=== PATIENT | female | born 1970 | race American Indian/Alaskan Native ===

== ENCOUNTER 2016-07-03 03:50 | Inpatient (IN) | payer OTHER ==
[2016-07-03] MEDS ORDERED: NACL 0.9% 500 ML 500 ML IV ONE (04:24)
[2016-07-03] MEDS ORDERED: TYLENOL PO STA (04:24)
[2016-07-03] MEDS ORDERED: NACL 0.9% 1000 ML 2,000 ML ONE (04:55)
[2016-07-03 05:30] LABS: Hematocrit 33.5 % (30.3-42.9); Hemoglobin 11.2 gm/dl (10.1-14.3); Mean Corpuscular HGB Conc 34 % (30-34); Mean Corpuscular Hemoglobin 32 pg (28-32); Mean Corpuscular Volume 96 fl (79-97); Red Blood Count 3.48 M/mm3 (3.65-5.03); Red Cell Distribution Width 15.1 % (13.2-15.2); White Blood Count 7.5 K/mm3 (4.5-11.0)
[2016-07-03 05:36] LABS: Bacteria,Urine 1+ /HPF (Negative); Bilirubin,Urine NEG (Negative); Blood,Urine MOD (Negative); Ketones,Urine 20 mg/dL (Negative); Leukocyte Esterase,Urine NEG (Negative); Mucus,Urine 1+ /HPF; Nitrite,Urine NEG (Negative); Urobilinogen,Urine < 2.0 mg/dL (<2.0)
[2016-07-03 05:36] LABS: Albumin 4.2 g/dL (3.9-5); Bilirubin,Total 2.2 mg/dL (0.1-1.2); Calcium 6.6 mg/dL (8.4-10.2); Chloride 87.5 mmol/L (98-107); Potassium 3.3 mmol/L (3.6-5.0); Total Protein 8.5 g/dL (6.3-8.2)
[2016-07-03 05:37] LABS: Platelet Count 91 K/mm3 (140-440)
[2016-07-03 05:38] LABS: Protein,Urine >500 mg/dL (Negative)
[2016-07-03] MEDS ORDERED: NACL 0.9% 1000 ML 2,000 ML IV ONE (05:39)
[2016-07-03 05:41] LABS: INR 1.1 (0.87-1.13)
[2016-07-03 06:15] LABS: Basophils % (Manual) 0 % (0.0-1.8); Blastocytes % (Manual) 0 %; Eosinophils % (Manual) 0 % (0.0-4.3)
[2016-07-03 06:16] LABS: Diff Status Complete; Platelet Estimate Appears Decreased; RBC Morphology Normal
[2016-07-03] MEDS ORDERED: HALDOL IV ONE (06:17)
--- NOTE | 2016-07-03 06:23 | Emergency Department Report ---
ED General Adult HPI - General Chief complaint: Fever Stated complaint: ETOH Time Seen by Provider: 07/03/16 06:05 Source: patient, EMS Mode of arrival: Stretcher Limitations: Altered Mental Status - History of Present Illness Initial comments: 45-year-old female presents to the emergency department via EMS after being found lying on the ground by the fire department. Per report, the initial call was for an injured person or a possible seizure. EMS reports that the patient was initially angry and combative with them. On my interviewing the patient, the patient is very loud and yelling. She states she does not know why she is here and has no complaints. Reviewing the nursing notes shows that the patient reported a recent cough and being very cold. She denied having a seizure. She also denies any fever. -: unknown Improves with: none Worsens with: none Associated Symptoms: denies other symptoms Treatments Prior to Arrival: none - Related Data Home Medications Medication Instructions Recorded Confirmed Last Taken No Known Home Medications [No 07/03/16 07/03/16 Unknown Reported Home Medications] Allergies Allergy/AdvReac Type Severity Reaction Status Date / Time No Known Allergies Allergy Unverified 07/03/16 04:14 ED Review of Systems ROS: Stated complaint: ETOH Other details as noted in HPI Comment: Unobtainable due to pts medical conditions ED Past Medical Hx - Past Medical History Previous Medical History?: Yes Hx Hypertension: Yes Hx Diabetes: Yes - Surgical History Past Surgical History?: No - Family History Family history: no significant - Social History Smoking Status: Unknown if ever smoked - Medications Home Medications: Home Medications Medication Instructions Recorded Confirmed Last Taken Type No Known Home Medications [No 07/03/16 07/03/16 Unknown History Reported Home Medications] ED Physical Exam - General Limitations: Altered Mental Status General appearance: alert, in no apparent distress - Head Head exam: Present: atraumatic, normocephalic - Eye Eye exam: Present: normal appearance, PERRL, EOMI - ENT ENT exam: Present: normal orophraynx, mucous membranes moist, other (dried blood noted on lips) - Neck Neck exam: Present: normal inspection, full ROM. Absent: tenderness, meningismus - Respiratory Respiratory exam: Present: normal lung sounds bilaterally. Absent: respiratory distress - Cardiovascular Cardiovascular Exam: Present: regular rate, tachycardia, normal heart sounds - GI/Abdominal GI/Abdominal exam: Present: soft, normal bowel sounds. Absent: distended, tenderness - Extremities Exam Extremities exam: Present: normal inspection, full ROM. Absent: tenderness - Back Exam Back exam: Present: normal inspection, full ROM. Absent: tenderness - Neurological Exam Neurological exam: Present: alert, altered. Absent: motor sensory deficit - Psychiatric Psychiatric exam: Present: agitated - Skin Skin exam: Present: warm, dry, intact ED Course Vital Signs 07/03/16 07/03/16 07/03/16 03:56 04:00 04:10 Temperature Pulse Rate 132 H 133 H Respiratory 22 24 Rate Blood Pressure 154/130 166/102 Blood Pressure [Left] O2 Sat by Pulse 82 L 96 100 Oximetry 07/03/16 07/03/16 07/03/16 04:14 04:20 04:30 Temperature 102.3 F H Pulse Rate 142 H 156 H 148 H Respiratory 26 H 30 H 27 H Rate Blood Pressure 166/102 166/102 177/127 Blood Pressure [Left] O2 Sat by Pulse 99 98 98 Oximetry 07/03/16 07/03/16 07/03/16 04:40 04:50 05:00 Temperature Pulse Rate 162 H 191 H 153 H Respiratory 27 H 29 H 30 H Rate Blood Pressure 177/127 177/127 195/126 Blood Pressure [Left] O2 Sat by Pulse 98 98 100 Oximetry 07/03/16 07/03/16 07/03/16 05:10 05:20 05:30 Temperature Pulse Rate 129 H 110 H 141 H Respiratory 23 21 13 Rate Blood Pressure 177/127 177/127 213/158 Blood Pressure [Left] O2 Sat by Pulse 99 99 100 Oximetry 07/03/16 07/03/16 07/03/16 05:40 05:50 06:16 Temperature Pulse Rate 186 H 137 H 131 H Respiratory 34 H 18 Rate Blood Pressure 213/158 213/124 193/110 Blood Pressure [Left] O2 Sat by Pulse 98 100 Oximetry 07/03/16 07/03/16 07/03/16 06:20 06:24 06:30 Temperature Pulse Rate 131 H 142 H Respiratory 25 H 18 18 Rate Blood Pressure 98/75 Blood Pressure 158/101 [Left] O2 Sat by Pulse 97 97 98 Oximetry 07/03/16 07/03/16 07/03/16 06:40 06:50 07:00 Temperature Pulse Rate 176 H 163 H 146 H Respiratory 33 H 28 H 21 Rate Blood Pressure 158/103 158/103 164/121 Blood Pressure [Left] O2 Sat by Pulse 97 99 97 Oximetry 07/03/16 07/03/16 07/03/16 07:10 07:20 07:34 Temperature Pulse Rate 140 H 163 H 115 H Respiratory 23 32 H 22 Rate Blood Pressure 164/121 164/121 164/121 Blood Pressure [Left] O2 Sat by Pulse 98 100 94 Oximetry 07/03/16 07/03/16 07/03/16 07:40 07:50 07:57 Temperature Pulse Rate 113 H 110 H 184 H Respiratory 28 H 20 16 Rate Blood Pressure 164/121 164/121 Blood Pressure 177/129 [Left] O2 Sat by Pulse 95 95 100 Oximetry 07/03/16 07/03/16 07/03/16 08:00 08:16 08:19 Temperature 102.3 F H Pulse Rate 187 H 149 H Respiratory 21 22 17 Rate Blood Pressure Blood Pressure 234/162 207/137 [Left] O2 Sat by Pulse 95 94 100 Oximetry 07/03/16 07/03/16 07/03/16 08:20 08:30 08:45 Temperature Pulse Rate 147 H 139 H Respiratory 18 18 16 Rate Blood Pressure Blood Pressure 193/127 167/119 [Left] O2 Sat by Pulse 96 98 99 Oximetry 07/03/16 07/03/16 07/03/16 08:46 08:56 09:00 Temperature Pulse Rate 138 H 136 H 118 H Respiratory 16 16 20 Rate Blood Pressure 167/119 Blood Pressure 214/132 [Left] O2 Sat by Pulse 100 100 100 Oximetry 07/03/16 07/03/16 09:40 09:50 Temperature Pulse Rate 114 H 110 H Respiratory 17 16 Rate Blood Pressure 167/119 161/111 Blood Pressure [Left] O2 Sat by Pulse 100 100 Oximetry - Reevaluation(s) Reevaluation #1: 07/03/16 08:11 Patient suffered a witnessed seizure while phlebotomy was attempting a blood draw. Tonic-clonic activity was noted in all 4 extremities. Patient is unresponsive following this. Patient is noted to have a heart rate of possible 200 and remains hypotensive. Decision was made to intubate the patient. See associated procedure note. Patient remained tachycardia following intubation. 6 g of adenosine was administered followed by an additional 12 mg of adenosine. This had no effect on the patient's heart rate. Current heart monitor shows a regular supraventricular tachycardia with a rate between 160 and 180. Reevaluation #2: 07/03/16 10:[address], the patient's heart rate has improved in to the 110s. Her blood pressure is also improved, although she remains hypertensive. Patient is to be admitted by the hospitalist for further management. - Intubation Time Out Performed: Yes Sedative: Etomidate Mg Given: 20 Paralytic: Rocuronium Mg Given: 100 Laryngoscope: Daria Size: 3 ET Tube Size: 7.5 Tube Secured Depth (cm): 24 Tube Secured Location: lips Tube Placement Confirmation: visualized tube passing t, equal breath sounds bilat, no breath sounds over epi, confirmation by capnometr Patient Tolerated Procedure: well Intubation Complications: none ED Medical Decision Making - Lab Data Result diagrams: 07/03/16 04:42 07/03/16 04:42 - EKG Data -: EKG Interpreted by Me EKG shows normal: sinus rhythm, axis, intervals, QRS complexes Rate: tachycardia - EKG Data When compared to previous EKG there are: previous EKG unavailable Interpretation: nonspecific ST-T wave son - Radiology Data Radiology results: image reviewed interpreted by me: Chest x-ray shows no acute cardiopulmonary abnormality. CT of the head, facial bones, and cervical spine show no acute abnormalities. - Differential Diagnosis sepsis, drug ingestion, delirium, thyroid storm Critical Care Time: Yes Critical care time in (mins) excluding proc time.: 45 Critical care attestation.: If time is entered above; I have spent that time in minutes in the direct care of this critically ill patient, excluding procedure time. Critical Care Time: The high probability of a clinically significant, sudden or life threatening deterioration of the neurologic and cardiovascular system(s) required my full and direct attention, intervention and personal management. The aggregate critical care time was 45 minutes. This time is in addition to time spent performing reported procedures but includes the following: [x] Data Review and interpretation [x] Patient assessment and monitoring of vital signs [x] Documentation [x] Medication orders and management ED Disposition Clinical Impression: Fever Qualifiers: Fever type: unspecified Qualified Code(s): R50.9 - Fever, unspecified Altered mental status Qualifiers: Altered mental status type: delirium Qualified Code(s): R41.0 - Disorientation , unspecified Disposition: OP ADMITTED IP TO THIS HOSP Is pt being admited?: Yes Condition: Serious Referrals: PRIMARY CARE, [Primary Care Provider] - 3-5 Days Time of Disposition: 10:14
--- NOTE | 2016-07-03 06:49 | Admit Criteria Form ---
Admission Criteria Documentation: FEVER Clinical Indications for Inpatient Care (Place 'X' for any and all applicable criteria): Ongoing inpatient care may be indicated for fever with ANY ONE of the following[ D] (5)(27)(28)(29)(30)(31): [ ]I. Bacteremia [X ]II. Evidence of significant systemic illness as indicated by ANY ONE of the following: [ ]a) Persistently high temperatures greater than 103.1 degrees F ( 39.5 degrees C) (oral) [ ]b) New-onset hypoxia [ ]c) Hemodynamic instability [X ]d) Mental status changes [ ]e) Decreased urine output due to developing renal insufficiency [ ]f) New focal neurologic deficit (eg, stroke) [ ]g) Seizures [ ]h) Rigors [ ]i) Dehydration or hypovolemia [ ]j) Inadequate oral intake [ ]III. Patient in the immediate postoperative period with ANY ONE of the following (E)(23)(24): [ ]a) Evidence of specific localizing infection requiring ongoing inpatient evaluation or treatment (eg,abscess, severe pneumonia, wound infection ) [ ]b) Known or suspected cause of fever requiring ongoing inpatient evaluation or treatment (eg, DVT) [ ]c) Evidence of malignant hyperthermia (eg, unexplained tachycardia and muscle rigidity after depolarizing muscular blocking agent or inhaled anesthetic agent) [ ]IV. Suspected cause requiring acute care (eg, endocarditis, meningitis) [ ]V. High suspicion of bacteremia as indicated by severe constitutional symptoms in patient at high risk as indicated by ANY ONE of the following: [ ]a) Immunocompromised state [D](22) [ ]b) Age <3 years or >65 years [ ]c) Severe comorbidities (eg, poorly controlled diabetes, severe COPD) [ ]. High suspicion for fungal infection as indicated by ANY ONE of the following (22)(25): [ ]a) Febrile neutropenia (WBC <500/mm3 (0.5 X 109/L)) for >4 days despite broad spectrum antibiotics [ ]b) Imaging findings suggestive of fungal infection [ ]c) Immunocompromised state [ ]d) Immunocompromised patient colonized with Aspergillus species [ ]VII. Evidence of infection of medical devices such as implanted catheters or exposed hardware [ ]VIII. Suspected neuroleptic malignant syndrome as evidenced by ALL of the following (15): [ ]a) Recent use of neuroleptic medication (eg, haloperidol, prochlorperazine, metoclopramide) [ ]b) New-onset muscle rigidity Extended stay beyond goal length of stay for primary condition may be needed until ALL of the following are present(16)(17)(18)(19)(20)(21): [ ]a) Temperature status acceptable as indicated by ANY ONE of the following: [ ]i) Temp <38.1C (100.5 F) (oral) [ ]ii) Temp as expected for disease process and care performable at next level of care [ ]b) Hemodynamic stability [ ]c) Cultures negative or infection identified and under adequate treatment [ ]d) Behavior or mental status abnormalities absent or manageable at lower level of care (Also use Mental Status Change Criteria Form) for further information. [ ]e) Medical comorbidities absent or manageable at a lower level of care The original [facility] content created by [facility] has been revised. The portions of the content which have been revised are identified through the use of italic text or in bold, and [facility] has neither reviewed nor approved the modified material. All other unmodified content is copyright [facility]. Please see references footnoted in the original [facility] edition 2016 Admission Criteria Met: Yes
[2016-07-03] MEDS ORDERED: BENADRYL IV ONE (07:15)
--- NOTE | 2016-07-03 07:33 | XRay Report ---
AP CHEST: HISTORY: Sepsis, fever AP view of the chest demonstrates a normal mediastinal and cardiac contour with clear lungs and normal bony and soft tissue structures. IMPRESSION: Unremarkable AP chest.
[2016-07-03] MEDS ORDERED: DIPRIVAN 10 MG/ML 1,000 MG/100 ML BOTTLE IV ONE (07:42)
[2016-07-03] MEDS ORDERED: fentaNYL DRIP Premix 2,000 MCG/100 ML BAG IV ONE (07:43)
[2016-07-03] MEDS ORDERED: NACL 0.9% 1000 ML 1,000 ML IV ONE (07:55)
[2016-07-03] MEDS ORDERED: ARTIFICIAL TEARS OPHTH OINT OU PRN (08:09)
[2016-07-03] MEDS ORDERED: ZEMURON IV ONE ×2 (08:09→12:36)
[2016-07-03] MEDS ORDERED: VASELINE LIP THERAPY TP PRN (08:09)
[2016-07-03] MEDS ORDERED: AMIDATE IV ONE ×2 (08:09→12:36)
[2016-07-03 08:18] LABS: Urine Drugs of Abuse Note Disclamer
[2016-07-03] MEDS: DIPRIVAN 10 MG/ML 1,000 MG/100 ML BOTTLE IV SCH ×2 (08:27→21:09)
[2016-07-03] MEDS: fentaNYL DRIP Premix 2,000 MCG/100 ML BAG IV SCH ×2 (08:56→21:15)
[2016-07-03] MEDS ORDERED: NACL 0.9% 500 ML IV SCH (09:00)
--- NOTE | 2016-07-03 10:18 | XRay Report ---
AP CHEST: HISTORY: Endotracheal tube placement An endotracheal tube has been inserted which terminates 3 cm superior to the hollis. AP view of the chest demonstrates a normal mediastinal and cardiac contour with clear lungs and normal bony and soft tissue structures. IMPRESSION: Unremarkable AP chest. Adequate endotracheal tube placement.
--- NOTE | 2016-07-03 10:20 | Cat Scan Report ---
CT HEAD WITHOUT CONTRAST: HISTORY: Head injury. Advanced cerebellar volume loss is identified. Mild cortical volume loss for this patient's age in the supratentorial compartment. There is no evidence for hemorrhage, mass, extra-axial fluid collection or hydrocephalus. No chronic infarct. The calvarium is intact. The visualized sinuses and mastoid air cells are adequately aerated. IMPRESSION: No acute intracranial process. Advanced volume loss for this patient's age, particularly in the cerebellum.
--- NOTE | 2016-07-03 10:22 | Cat Scan Report ---
CT SCAN OF THE CERVICAL SPINE: HISTORY: Neck injury, head injury, pain. TECHNIQUE: Contiguous 1.25 mm axial images of the cervical spine were obtained. Sagittal and coronal reformatted images. FINDINGS: There is normal alignment of the cervical spine. The body, pedicles and posterior ligaments are intact. No evidence of fracture or subluxation is seen. Moderate degenerative disc disease with circumferential spurring is identified at C5-6. The remaining levels demonstrate minimal degenerative findings. The spinal canal appears normal. The prevertebral soft tissues appear normal. IMPRESSION: Cervical spondylosis most pronounced at C5-6. No acute process is noted.
--- NOTE | 2016-07-03 10:25 | Cat Scan Report ---
CT FACIAL BONES WITHOUT CONTRAST: HISTORY: Head injury. TECHNIQUE: Helical CT images with sagittal and coronal CT reformations. FINDINGS: An endotracheal tube is in place. There is a small amount of fluid in the left maxillary sinus and lower ethmoid air cells which probably represents blood. No sinus wall fracture or orbital fracture is identified. Mandible and zygomas are intact. Visualized skull base is intact. There are subtle bilateral nasal bone deformities of uncertain age. At least 2 periapical tooth abscesses are identified involving left maxillary teeth. Please correlate with the images. IMPRESSION: Bilateral nasal bone deformities which may be chronic. No additional facial bone abnormality. Small amount of blood or fluid in the sinuses. Poor dentition.
[2016-07-03 10:46] LABS: ISTAT Base Excess 0; ISTAT HCO3 23.3; ISTAT PCO2 29.3 (35-45); ISTAT PH 7.508 (7.35-7.45); ISTAT PO2 169 (80-105); ISTAT SO2 100; ISTAT TCO2 24
--- NOTE | 2016-07-03 11:15 | History and Physical Report ---
History of Present Illness Date of examination: 07/03/16 Date of admission: 07/03/16 Chief complaint: 45-year-old female presents to the emergency department via EMS after being found lying on the ground by the fire department. Per report, the initial call was for an injured person or a possible seizure. EMS reports that the patient was initially angry and combative with them. History of present illness: 45-year-old female presents to the emergency department via EMS after being found lying on the ground by the fire department. Per report, the initial call was for an injured person or a possible seizure. EMS reports that the patient was initially angry and combative with them. Patient is currently intubated and sedated. All the history was obtained from the ER physician and ER record. ER physician reported that the patient was "very loud and yelling and did not know why she was here and had no complaints." Reviewing the nursing notes shows that the patient reported a recent cough and being very cold. According to the ER record, she denied having a seizure and denied any fever. While in the emergency department, patient was noted to have a seizure times one witnessed by the staff. Patient also had an episode of SVT with a heart rate in the range of 160-220 and received adenosine with resolution. Past History Past Medical History: other (unable to obtain due to ventilator and mental status) Past Surgical History: Other (unable to obtain due to mental status and ventilator) Social history: other (unable to obtain due to mental status and ventilator) Medications and Allergies Allergies Allergy/AdvReac Type Severity Reaction Status Date / Time No Known Allergies Allergy Unverified 07/03/16 04:14 Home Medications Medication Instructions Recorded Confirmed Last Taken Type No Known Home Medications [No 07/03/16 07/03/16 Unknown History Reported Home Medications] Active Meds: Active Medications Hydrophilic Ointment (Vaseline Lip Therapy) 1 applic TP Q2HR PRN PRN Reason: Dry Lips Fentanyl Citrate (Fentanyl Drip Premix) 2,000 mcg in 100 mls @ 3.062 mls/hr IV TITR VENKATA; 1 MCG/KG/HR PRN Reason: Protocol Last Admin: 07/03/16 08:56 Dose: 1 mcg/kg/hr, 3.062 mls/hr Propofol (Diprivan 10 Mg/Ml) 1,000 mg in 100 mls @ 1.837 mls/hr IV TITR VENKATA; 5 MCG/KG/MIN PRN Reason: Protocol Last Admin: 07/03/16 08:27 Dose: 5 mcg/kg/min, 1.837 mls/hr Multi-Ingred Cream/Lotion/Oil/Oint (Artificial Tears Ophth Oint) 1 applic OU Q4HR PRN PRN Reason: Dry Eye(s) Sodium Chloride (Nacl 0.9% 500 Ml) 1 ml IV DIRECT VENKATA Review of Systems ROS unobtainable: due to endotracheal tube, due to mental status Exam - Constitutional Vitals: Temp Pulse Resp BP Pulse Ox 102.3 F H 121 H 16 159/113 100 07/03/16 08:00 07/03/16 10:30 07/03/16 10:30 07/03/16 10:30 07/03/16 10:30 General appearance: Present: no acute distress, well-nourished, other (orally intubated) - EENT Eyes: Present: PERRL ENT: hearing intact, clear oral mucosa - Neck Neck: Present: supple, normal ROM - Respiratory Respiratory effort: normal Respiratory: bilateral: diminished, rhonchi - Cardiovascular Heart Sounds: Present: S1 & S2. Absent: rub, click - Extremities Extremities: pulses symmetrical, No edema Peripheral Pulses: within normal limits - Abdominal General gastrointestinal: Present: soft, non-tender, non-distended, normal bowel sounds Female genitourinary: Present: normal - Integumentary Integumentary: Present: clear, warm, dry - Musculoskeletal Musculoskeletal: gait normal, strength equal bilaterally - Psychiatric Psychiatric: appropriate mood/affect, intact judgment & insight - Neurologic Neurologic: CNII-XII intact, moves all extremities Results - Labs CBC & Chem 7: 07/03/16 04:42 07/03/16 04:42 Labs: Laboratory Last Values WBC 7.5 K/mm3 (4.5-11.0) 07/03/16 04:42 RBC 3.48 M/mm3 (3.65-5.03) L 07/03/16 04:42 Hgb 11.2 gm/dl (10.1-14.3) 07/03/16 04:42 Hct 33.5 % (30.3-42.9) 07/03/16 04:42 MCV 96 fl (79-97) 07/03/16 04:42 MCH 32 pg (28-32) 07/03/16 04:42 MCHC 34 % (30-34) 07/03/16 04:42 RDW 15.1 % (13.2-15.2) 07/03/16 04:42 Plt Count 91 K/mm3 (140-440) L 07/03/16 04:42 Add Manual Diff Complete 07/03/16 04:42 Total Counted 100 07/03/16 04:42 Seg Neutrophils % Guest Relations Representative 07/03/16 04:42 Seg Neuts % (Manual) 94.0 % (40.0-70.0) H 07/03/16 04:42 Band Neutrophils % 0 % 07/03/16 04:42 Lymphocytes % (Manual) 4.0 % (13.4-35.0) L 07/03/16 04:42 Reactive Lymphs % (Man) 0 % 07/03/16 04:42 Monocytes % (Manual) 2.0 % (0.0-7.3) 07/03/16 04:42 Eosinophils % (Manual) 0 % (0.0-4.3) 07/03/16 04:42 Basophils % (Manual) 0 % (0.0-1.8) 07/03/16 04:42 Metamyelocytes % 0 % 07/03/16 04:42 Myelocytes % 0 % 07/03/16 04:42 Promyelocytes % 0 % 07/03/16 04:42 Blast Cells % 0 % 07/03/16 04:42 Nucleated RBC % Not Reportable 07/03/16 04:42 Seg Neutrophils # Man 7.1 K/mm3 (1.8-7.7) 07/03/16 04:42 Band Neutrophils # 0.0 K/mm3 07/03/16 04:42 Lymphocytes # (Manual) 0.3 K/mm3 (1.2-5.4) L 07/03/16 04:42 Abs React Lymphs (Man) 0.0 K/mm3 07/03/16 04:42 Monocytes # (Manual) 0.2 K/mm3 (0.0-0.8) 07/03/16 04:42 Eosinophils # (Manual) 0.0 K/mm3 (0.0-0.4) 07/03/16 04:42 Basophils # (Manual) 0.0 K/mm3 (0.0-0.1) 07/03/16 04:42 Metamyelocytes # 0.0 K/mm3 07/03/16 04:42 Myelocytes # 0.0 K/mm3 07/03/16 04:42 Promyelocytes # 0.0 K/mm3 07/03/16 04:42 Blast Cells # 0.0 K/mm3 07/03/16 04:42 WBC Morphology Not Reportable 07/03/16 04:42 Hypersegmented Neuts Not Reportable 07/03/16 04:42 Hyposegmented Neuts Not Reportable 07/03/16 04:42 Hypogranular Neuts Not Reportable 07/03/16 04:42 Smudge Cells Not Reportable 07/03/16 04:42 Toxic Granulation Not Reportable 07/03/16 04:42 Toxic Vacuolation Not Reportable 07/03/16 04:42 Dohle Bodies Not Reportable 07/03/16 04:42 Pelger-Huet Anomaly Not Reportable 07/03/16 04:42 Paul Rods Not Reportable 07/03/16 04:42 Platelet Estimate Appears decreased 07/03/16 04:42 Clumped Platelets Not Reportable 07/03/16 04:42 Plt Clumps, EDTA Not Reportable 07/03/16 04:42 Large Platelets Not Reportable 07/03/16 04:42 Giant Platelets Not Reportable 07/03/16 04:42 Platelet Satelliting Not Reportable 07/03/16 04:42 Plt Morphology Comment Not Reportable 07/03/16 04:42 RBC Morphology Normal 07/03/16 04:42 Dimorphic RBCs Not Reportable 07/03/16 04:42 Polychromasia Not Reportable 07/03/16 04:42 Hypochromasia Not Reportable 07/03/16 04:42 Poikilocytosis Not Reportable 07/03/16 04:42 Anisocytosis Not Reportable 07/03/16 04:42 Microcytosis Not Reportable 07/03/16 04:42 Macrocytosis Not Reportable 07/03/16 04:42 Spherocytes Not Reportable 07/03/16 04:42 Pappenheimer Bodies Not Reportable 07/03/16 04:42 Sickle Cells Not Reportable 07/03/16 04:42 Target Cells Not Reportable 07/03/16 04:42 Tear Drop Cells Not Reportable 07/03/16 04:42 Ovalocytes Not Reportable 07/03/16 04:42 Helmet Cells Not Reportable 07/03/16 04:42 Mcleod-Soldier Bodies Not Reportable 07/03/16 04:42 [place] Rings Not Reportable 07/03/16 04:42 [place] Cells Not Reportable 07/03/16 04:42 Bite Cells Not Reportable 07/03/16 04:42 Crenated Cell Not Reportable 07/03/16 04:42 Elliptocytes Not Reportable 07/03/16 04:42 Acanthocytes (Spur) Not Reportable 07/03/16 04:42 Rouleaux Not Reportable 07/03/16 04:42 Hemoglobin C Crystals Not Reportable 07/03/16 04:42 Schistocytes Not Reportable 07/03/16 04:42 Malaria parasites Not Reportable 07/03/16 04:42 Low Bodies Not Reportable 07/03/16 04:42 Hem Pathologist Commnt No 07/03/16 04:42 PT 14.1 Sec. (12.2-14.9) 07/03/16 04:42 INR 1.10 (0.87-1.13) 07/03/16 04:42 POC ABG pH 7.508 (7.35-7.45) H 07/03/16 10:38 POC ABG pCO2 29.3 (35-45) L 07/03/16 10:38 POC ABG pO2 169 (80-105) H 07/03/16 10:38 POC ABG HCO3 23.3 07/03/16 10:38 POC ABG Total CO2 24 07/03/16 10:38 POC ABG O2 Sat 100 07/03/16 10:38 POC ABG Base Excess 0 07/03/16 10:38 VBG pH 7.384 (7.320-7.420) 07/03/16 04:42 FiO2 70 % 07/03/16 10:38 Sodium 136 mmol/L (137-145) L 07/03/16 04:42 Potassium 3.3 mmol/L (3.6-5.0) L 07/03/16 04:42 Chloride 87.5 mmol/L (98-107) L 07/03/16 04:42 Carbon Dioxide 19 mmol/L (22-30) L 07/03/16 04:42 Anion Gap 33 mmol/L 07/03/16 04:42 BUN 13 mg/dL (7-17) 07/03/16 04:42 Creatinine 1.3 mg/dL (0.7-1.2) H 07/03/16 04:42 Estimated GFR 54 ml/min 07/03/16 04:42 BUN/Creatinine Ratio 10.00 % 07/03/16 04:42 Glucose 137 mg/dL (65-100) H 07/03/16 04:42 Lactic Acid 9.2 mmol/L (0.7-2.0) H* 07/03/16 07:37 Calcium 6.6 mg/dL (8.4-10.2) L 07/03/16 04:42 Total Bilirubin 2.2 mg/dL (0.1-1.2) H 07/03/16 04:42 AST 470 units/L (5-40) H 07/03/16 04:42 ALT 111 units/L (7-56) H 07/03/16 04:42 Alkaline Phosphatase 163 units/L (35-129) H 07/03/16 04:42 Total Protein 8.5 g/dL (6.3-8.2) H 07/03/16 04:42 Albumin 4.2 g/dL (3.9-5) 07/03/16 04:42 Albumin/Globulin Ratio 1.0 % 07/03/16 04:42 TSH 1.450 mlU/mL (0.270-4.200) 07/03/16 06:16 Urine Color [place] (Yellow) 07/03/16 04:31 Urine Turbidity Clear (Clear) 07/03/16 04:31 Urine pH 5.0 (5.0-7.0) 07/03/16 04:31 Ur Specific [place] 1.024 (1.003-1.030) 07/03/16 04:31 Urine Protein >500 mg/dL (Negative) 07/03/16 04:31 Urine Glucose (UA) Neg mg/dL (Negative) 07/03/16 04:31 Urine Ketones 20 mg/dL (Negative) 07/03/16 04:31 Urine Blood Mod (Negative) 07/03/16 04:31 Urine Nitrite Neg (Negative) 07/03/16 04:31 Urine Bilirubin Neg (Negative) 07/03/16 04:31 Urine Urobilinogen < 2.0 mg/dL (<2.0) 07/03/16 04:31 Ur Leukocyte Esterase Neg (Negative) 07/03/16 04:31 Urine WBC (Auto) 3.0 /HPF (0.0-6.0) 07/03/16 04:31 Urine RBC (Auto) 4.0 /HPF (0.0-6.0) 07/03/16 04:31 U Epithel Cells (Auto) < 1.0 /HPF (0-13.0) 07/03/16 04:31 Urine Bacteria (Auto) 1+ /HPF (Negative) 07/03/16 04:31 Urine Mucus 1+ /HPF 07/03/16 04:31 Urine HCG, Qual Negative (Negative) 07/03/16 04:43 Salicylates < 0.3 mg/dL (2.8-20.0) L 07/03/16 06:16 Urine Opiates Screen Presumptive negative 07/03/16 07:00 Urine Methadone Screen Presumptive negative 07/03/16 07:00 Acetaminophen < 15.0 ug/mL (10.0-30.0) 07/03/16 06:16 Ur Barbiturates Screen Presumptive negative 07/03/16 07:00 Ur Phencyclidine Scrn Presumptive negative 07/03/16 07:00 Ur Amphetamines Screen Presumptive negative 07/03/16 07:00 U Benzodiazepines Scrn Presumptive negative 07/03/16 07:00 Urine Cocaine Screen Presumptive negative 07/03/16 07:00 U Marijuana (THC) Screen Presumptive negative 07/03/16 07:00 Drugs of Abuse Note Disclamer 07/03/16 07:00 Plasma/Serum Alcohol < 0.01 gm% (0-0.07) 07/03/16 06:16 Assessment and Plan Assessment and plan: 1. Sepsis. Patient will be admitted and placed on a sepsis pathway. Patient has a significant fever, neutrophilia, tachycardia and lactic acidosis. Patient will be placed on a sepsis pathway and started on IV antibiotics. Follow-up blood and urine cultures. Also, will continue to trend lactic acid levels and CBC. 2. SVT. Patient will be monitored on telemetry. Cardiology consultation. Check TSH and echocardiogram. 3. Seizure. Patient with no history of seizure disorder. We will load with 1 g of Keppra IV. Seizure precautions. Ativan when necessary for breakthrough seizures. Neurology consultation. 4. Acute encephalopathy. Etiology may be toxic metabolic from sepsis. However , patient may be post ictal as well. Await neurology evaluation. 5. Elevated LFTs. Abdominal ultrasound. Etiology may be secondary to sepsis. Consider CT scan of the abdomen and pelvis when stable. 6. Acute renal failure. Etiology is likely secondary to SANDRA from ATN from sepsis. Continue to follow BMP. Consider renal ultrasound. 7. DVT prophylaxis. Lovenox daily.
[2016-07-03] MEDS ORDERED: DULCOLAX PR PRN ×2 (11:24)
[2016-07-03] MEDS ORDERED: MILK OF MAGNESIA PO PRN ×2 (11:24)
[2016-07-03] MEDS ORDERED: ZOFRAN IV PRN (11:24)
[2016-07-03] MEDS ORDERED: ALUM-MAG HYDROX-SIMETH 200-200-20MG/5ML PO PRN (11:24)
[2016-07-03] MEDS ORDERED: VANCOMYCIN PHARMACY TO DOSE IV SCH (12:00)
[2016-07-03] MEDS ORDERED: NACL 0.9% 1000 ML 1,000 ML IV SCH (12:00)
[2016-07-03] MEDS: ZOSYN/NS 4.5GM/100ML 4.5 GM/100 ML VIAL IV SCH ×2 (12:47→18:16)
[2016-07-03] MEDS ORDERED: VANCOMYCIN VIAL 1,250 MG in NACL 0.9% 500 ML 500 ML IV ONE (13:00)
[2016-07-03] MEDS ORDERED: LEVAQUIN 750MG/150ML 750 MG/150 ML BAG IV ONE (15:30)
[2016-07-03] MEDS: LEVAQUIN 750MG/150ML 750 MG/150 ML BAG IV SCH (16:03)
[2016-07-03] MEDS: NS/KCL 20MEQ 20 MEQ/1,000 ML BAG IV SCH (18:07)
[2016-07-04] MEDS: ZOSYN/NS 4.5GM/100ML 4.5 GM/100 ML VIAL IV SCH ×2 (00:11→06:51)
[2016-07-04] MEDS: NS/KCL 20MEQ 20 MEQ/1,000 ML BAG IV SCH ×4 (03:33→22:38)
[2016-07-04] MEDS: DIPRIVAN 10 MG/ML 1,000 MG/100 ML BOTTLE IV SCH ×5 (03:34→23:08)
[2016-07-04 05:41] LABS: Basophils % (Auto) 0.4 % (0.0-1.8); Eosinophils % (Auto) 0.2 % (0.0-4.3); Hematocrit 25.2 % (30.3-42.9); Hemoglobin 8.6 gm/dl (10.1-14.3); Mean Corpuscular HGB Conc 34 % (30-34); Mean Corpuscular Hemoglobin 33 pg (28-32); Mean Corpuscular Volume 95 fl (79-97); Red Blood Count 2.64 M/mm3 (3.65-5.03); Red Cell Distribution Width 14.8 % (13.2-15.2); White Blood Count 6.4 K/mm3 (4.5-11.0)
[2016-07-04 05:49] LABS: Platelet Count 50 K/mm3 (140-440)
[2016-07-04 05:50] LABS: Anion Gap 25 mmol/L; Blood Urea Nitrogen 12 mg/dL (7-17); Carbon Dioxide 16 mmol/L (22-30); Chloride 103.5 mmol/L (98-107); Glucose 72 mg/dL (65-100); Potassium 3.6 mmol/L (3.6-5.0); Sodium 141 mmol/L (137-145)
[2016-07-04 06:05] LABS: Calcium 4.5 mg/dL (8.4-10.2)
[2016-07-04 06:07] LABS: ISTAT Base Excess -6; ISTAT HCO3 18.9; ISTAT PCO2 31.6 (35-45); ISTAT PH 7.384 (7.35-7.45); ISTAT PO2 157 (80-105); ISTAT SO2 99; ISTAT TCO2 20
--- NOTE | 2016-07-04 07:51 | XRay Report ---
Single view chest: Compared to 07/03/16. History: Followup respiratory failure. Findings: Normal cardiomediastinal silhouette. Trachea is midline. Tip of endotracheal tube in normal position. No consolidation, pneumothorax or pleural effusion. Impression: No acute cardiopulmonary findings.
[2016-07-04] MEDS ORDERED: SODIUM BICARBONATE FEEDTUBE PRN (08:16)
[2016-07-04] MEDS ORDERED: PANCREAZE DR 10,500 UNIT FEEDTUBE PRN (08:16)
[2016-07-04] MEDS ORDERED: SIMPLE SYRUP FEEDTUBE PRN ×2 (08:16)
[2016-07-04] MEDS: LEVAQUIN 750MG/150ML 750 MG/150 ML BAG IV SCH (10:01)
[2016-07-04] MEDS ORDERED: NACL 0.9% IR PRN (11:42)
--- NOTE | 2016-07-04 11:44 | Consultation ---
History of Present Illness Consult date: 07/04/16 Requesting physician: DORON HOLT Reason for consult: hypoxemia History of present illness: 45 y/o female, with no real known past medical history was found down. Brought in by EMS. Became extremely agitated. Had an apparent witnessed seizure and was intubated and sedated. Also had bouts of SVT of unknown etiology, responsive to adenosine. She is currently awake and alert on sedation this am. She nods appropriately and follows commands. No family is at the bedside. She was febrile on admit. No fever since. No elevated white blood cell count. No decrease in blood pressure. She was thrombocytopenic on admit it is worse today. Past History Past Medical History: other (unable to obtain due to ventilator and mental status) Past Surgical History: Other (unable to obtain due to mental status and ventilator) Social history: other (unable to obtain due to mental status and ventilator) Medications and Allergies Allergies Allergy/AdvReac Type Severity Reaction Status Date / Time No Known Allergies Allergy Unverified 07/03/16 04:14 Home Medications Medication Instructions Recorded Confirmed Last Taken Type No Known Home Medications [No 07/03/16 07/03/16 Unknown History Reported Home Medications] Active Meds: Active Medications Acetaminophen (Tylenol) 650 mg PO Q4H PRN PRN Reason: Pain MILD(1-3)/Fever >100.5/PASTRANA Al Hydrox/Mg Hydrox/Simethicone (Alum-Mag Hydrox-Simeth [phone]/5ml) 30 ml PO Q4H PRN PRN Reason: Indigestion Amoxicillin/Clavulanate Potassium (Augmentin 875 Mg) 1 each PO Q12HR VENKATA Lipase/Protease/Amylase (Pancreaze Dr 10,500 Unit) 1 each FEEDTUBE PRN PRN PRN Reason: For Clogged Feeding Tube Bisacodyl (Dulcolax) 10 mg [place] QDAY PRN PRN Reason: Constipation unrelieved by MOM Hydrophilic Ointment (Vaseline Lip Therapy) 1 applic TP Q2HR PRN PRN Reason: Dry Lips Fentanyl Citrate (Fentanyl Drip Premix) 2,000 mcg in 100 mls @ 3.062 mls/hr IV TITR VENKATA; 1 MCG/KG/HR PRN Reason: Protocol Last Admin: 07/03/16 21:15 Dose: 3 mcg/kg/hr, 9.185 mls/hr Propofol (Diprivan 10 Mg/Ml) 1,000 mg in 100 mls @ 1.837 mls/hr IV TITR VENKATA; 5 MCG/KG/MIN PRN Reason: Protocol Last Admin: 07/04/16 08:48 Dose: 50 mcg/kg/min, 18.371 mls/hr Potassium Chloride/Sodium Chloride (Ns/Kcl 20meq) 20 meq in 1,000 mls @ 125 mls /hr IV DIRECT VENKATA Last Admin: 07/04/16 06:54 Dose: 125 mls/hr Influenza Virus Vaccine Quadrival (Fluarix Quad [id number](36 Mos+)) 60 mcg IM .ONCE ONE Stop: 07/04/16 12:01 Magnesium Hydroxide (Milk Of Magnesia) 30 ml PO Q4H PRN PRN Reason: Constipation Multi-Ingred Cream/Lotion/Oil/Oint (Artificial Tears Ophth Oint) 1 applic OU Q4HR PRN PRN Reason: Dry Eye(s) Ondansetron HCl (Zofran) 4 mg IV Q8H PRN PRN Reason: N/V unrelieved by Reglan Pneumococcal Polyvalent Vaccine (Pneumovax 23) 0.5 ml IM .ONCE ONE Stop: 07/04/16 12:01 Simple Syrup (Simple Syrup) 15 ml FEEDTUBE PRN PRN PRN Reason: Hypoglycemia Simple Syrup (Simple Syrup) 30 ml FEEDTUBE PRN PRN PRN Reason: Hypoglycemia Sodium Bicarbonate (Sodium Bicarbonate) 325 mg FEEDTUBE PRN PRN PRN Reason: For Clogged Feeding Tube Sodium Chloride (Nacl 0.9% 500 Ml) 1 ml IV DIRECT VENKATA Review of Systems ROS unobtainable: due to endotracheal tube Physical Examination Vital signs: Vital Signs Pulse Ox 82 L 07/03/16 03:56 General appearance: no acute distress, alert, other (orally intubated and sedated) ENT: other (orally intubated) Neck: supple Ascultation: Bilateral: clear Percussion: Bilateral: not dull Cardiovascular: regular rate and rhythm Gastrointestinal: normoactive bowel sounds, soft, non-tender Integumentary: normal Extremities: no cyanosis Musculoskeletal: no deformities normal mental status, non-focal exam mood appropriate Results - Laboratory Findings CBC and BMP: 07/04/16 05:18 04/13/17 05:18 ABG POC ABG pH 7.384 (7.35-7.45) 07/04/16 04:16 POC ABG pCO2 31.6 (35-45) L 07/04/16 04:16 POC ABG pO2 157 (80-105) H 07/04/16 04:16 POC ABG HCO3 18.9 07/04/16 04:16 POC ABG Total CO2 20 07/04/16 04:16 POC ABG O2 Sat 99 07/04/16 04:16 PT/INR, D-dimer PT 14.1 Sec. (12.2-14.9) 07/03/16 04:42 INR 1.10 (0.87-1.13) 07/03/16 04:42 Abnormal lab findings: Abnormal Labs 07/04/16 07/04/16 07/04/16 04:16 05:18 05:18 RBC 2.64 L Hgb 8.6 L Hct 25.2 L D MCH 33 H Plt Count 50 L Lymph # 1.0 L Seg Neutrophils % 78.8 H POC ABG pCO2 31.6 L POC ABG pO2 157 H Carbon Dioxide 16 L Calcium 4.5 L* D - Diagnostic Findings Chest x-ray: image reviewed (clear) Assessment and Plan 45 y/o female with altered mental state, thrombocytopenia, renal failure and cardiac abnormalities admitted to the ICU with acute respiratory failure requiring mechanical ventilation and concern for possible seizure like activity. 1. Fever, Thrombocytopenia, renal failure that has improved and altered mental state. Initially was concerned during presentation that this could be TTP. Unable to obtain any history for the patient in regards to meds or exposures. Will send the [id number] lab and consult heme. Mainly with the thrombocytopenia and the worsening of this. 2. Mental state appears to be improved, although very cooperative on large amounts of sedation. UDS was negative. Will continue to monitor closely. 3. Renal failure has improved with volume. Received about 3 liters on yesterday. Will continue to monitor 4. Seizure-witnessed at least once in the ED. Will need neuro evaluation. Head CT showed nothing acute but advanced loss in the cerebellum for her age. Will ask Neuro to weigh in. May need EEG as well. 5. Cardiac abnormalities. Keep K and Mag at 4 and 2 respectively. Follow up EKG. Will replace Calcium aggressively and recheck. 6. Hold on extubation today given so many acute issues that need to be addressed, all of which could result in repeat intubation. CCT 31 minutes.
[2016-07-04] MEDS ORDERED: FLUARIX QUAD 2016-2017(36 MOS+) IM ONE (12:00)
[2016-07-04] MEDS ORDERED: PNEUMOVAX 23 IM ONE (12:00)
[2016-07-04] MEDS: ATIVAN IV PRN ×2 (12:31→22:08)
[2016-07-04] MEDS ORDERED: VANCOMYCIN/NS 1 GM/250 ML 1 GM/250 ML BAG IV SCH (13:00)
[2016-07-04] MEDS ORDERED: CALCIUM GLUCONATE 2,000 MG in NACL 0.9% 100 ML IV ONE ×2 (13:00→16:43)
--- NOTE | 2016-07-04 14:19 | XRay Report ---
Single view abdomen: History: Feeding tube placement. Findings: Tip of Dobbhoff feeding tube is noted in the fundus of the stomach just distal to the GE junction. Should be advanced approximately 4 cm. Impression: Findings as described.
--- NOTE | 2016-07-04 14:55 | Progress Note ---
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 She was brought to [facility] emergency department and had a seizure episode and was intubated for airway protection. -Status epilepticus: IV sedation, MRI pending ordered by neurologist -Acute respiratory failure: Intubated and sedated -Acute metabolic encephalopathy -Drop hematocrit most likely dilutional -Hypocalcemia: replace and recheck -Thrombocytopenia: [id number] ordered for TTP, peripheral blood smear shows decreased platelets -DVT prophylaxis: SCDs only due to the severe thrombocytopenia History Interval history: Patient seen and examined. Follow up on chair activity which has resolved. Overnight uneventful. No cp, sob, n/v or severe headaches. Imaging, old records , testing, labs, nursing notes reviewed. Plan discussed with patient. Hospitalist Physical - Physical exam Narrative exam: GEN: Intubated and sedated HEENT: ET tube in place NECK: SUPPLE, NO THYROMEGALY, NO JVD, NO LAD CVS: RRR, NORMAL S1S2 LUNGS/CHEST: NORMAL CHEST EXPANSION B, GOOD AIR ENTRY B ABD: SOFT NTND, GBS, NO REBOUND OR GUARDING NEURO: CN 2-12 GROSSLY INTACT, PSY: Sedated - Constitutional Vitals: Temp Pulse Resp BP Pulse Ox 99.0 F 77 14 129/79 100 07/04/16 12:00 07/04/16 13:00 07/04/16 13:00 07/04/16 13:00 07/04/16 13:00 General appearance: Present: no acute distress, well-nourished, other (orally intubated) Results - Labs CBC & Chem 7: 07/04/16 05:18 07/04/16 05:18 Labs: Laboratory Last Values WBC 6.4 K/mm3 (4.5-11.0) 07/04/16 05:18 RBC 2.64 M/mm3 (3.65-5.03) L 07/04/16 05:18 Hgb 8.6 gm/dl (10.1-14.3) L 07/04/16 05:18 Hct 25.2 % (30.3-42.9) L D 07/04/16 05:18 MCV 95 fl (79-97) 07/04/16 05:18 MCH 33 pg (28-32) H 07/04/16 05:18 MCHC 34 % (30-34) 07/04/16 05:18 RDW 14.8 % (13.2-15.2) 07/04/16 05:18 Plt Count 50 K/mm3 (140-440) L 07/04/16 05:18 Lymph % (Auto) 15.6 % (13.4-35.0) 07/04/16 05:18 Haakon % (Auto) 5.0 % (0.0-7.3) 07/04/16 05:18 Eos % (Auto) 0.2 % (0.0-4.3) 07/04/16 05:18 Baso % (Auto) 0.4 % (0.0-1.8) 07/04/16 05:18 Lymph # 1.0 K/mm3 (1.2-5.4) L 07/04/16 05:18 Haakon # 0.3 K/mm3 (0.0-0.8) 07/04/16 05:18 Eos # 0.0 K/mm3 (0.0-0.4) 07/04/16 05:18 Baso # 0.0 K/mm3 (0.0-0.1) 07/04/16 05:18 Add Manual Diff Complete 07/03/16 04:42 Total Counted 100 07/03/16 04:42 Seg Neutrophils % 78.8 % (40.0-70.0) H 07/04/16 05:18 Seg Neuts % (Manual) 94.0 % (40.0-70.0) H 07/03/16 04:42 Band Neutrophils % 0 % 07/03/16 04:42 Lymphocytes % (Manual) 4.0 % (13.4-35.0) L 07/03/16 04:42 Reactive Lymphs % (Man) 0 % 07/03/16 04:42 Monocytes % (Manual) 2.0 % (0.0-7.3) 07/03/16 04:42 Eosinophils % (Manual) 0 % (0.0-4.3) 07/03/16 04:42 Basophils % (Manual) 0 % (0.0-1.8) 07/03/16 04:42 Metamyelocytes % 0 % 07/03/16 04:42 Myelocytes % 0 % 07/03/16 04:42 Promyelocytes % 0 % 07/03/16 04:42 Blast Cells % 0 % 07/03/16 04:42 Nucleated RBC % Not Reportable 07/03/16 04:42 Seg Neutrophils # 5.0 K/mm3 (1.8-7.7) 07/04/16 05:18 Seg Neutrophils # Man 7.1 K/mm3 (1.8-7.7) 07/03/16 04:42 Band Neutrophils # 0.0 K/mm3 07/03/16 04:42 Lymphocytes # (Manual) 0.3 K/mm3 (1.2-5.4) L 07/03/16 04:42 Abs React Lymphs (Man) 0.0 K/mm3 07/03/16 04:42 Monocytes # (Manual) 0.2 K/mm3 (0.0-0.8) 07/03/16 04:42 Eosinophils # (Manual) 0.0 K/mm3 (0.0-0.4) 07/03/16 04:42 Basophils # (Manual) 0.0 K/mm3 (0.0-0.1) 07/03/16 04:42 Metamyelocytes # 0.0 K/mm3 07/03/16 04:42 Myelocytes # 0.0 K/mm3 07/03/16 04:42 Promyelocytes # 0.0 K/mm3 07/03/16 04:42 Blast Cells # 0.0 K/mm3 07/03/16 04:42 WBC Morphology Not Reportable 07/03/16 04:42 Hypersegmented Neuts Not Reportable 07/03/16 04:42 Hyposegmented Neuts Not Reportable 07/03/16 04:42 Hypogranular Neuts Not Reportable 07/03/16 04:42 Smudge Cells Not Reportable 07/03/16 04:42 Toxic Granulation Not Reportable 07/03/16 04:42 Toxic Vacuolation Not Reportable 07/03/16 04:42 Dohle Bodies Not Reportable 07/03/16 04:42 Pelger-Huet Anomaly Not Reportable 07/03/16 04:42 Paul Rods Not Reportable 07/03/16 04:42 Platelet Estimate Appears decreased 07/03/16 04:42 Clumped Platelets Not Reportable 07/03/16 04:42 Plt Clumps, EDTA Not Reportable 07/03/16 04:42 Large Platelets Not Reportable 07/03/16 04:42 Giant Platelets Not Reportable 07/03/16 04:42 Platelet Satelliting Not Reportable 07/03/16 04:42 Plt Morphology Comment Not Reportable 07/03/16 04:42 RBC Morphology Normal 07/03/16 04:42 Dimorphic RBCs Not Reportable 07/03/16 04:42 Polychromasia Not Reportable 07/03/16 04:42 Hypochromasia Not Reportable 07/03/16 04:42 Poikilocytosis Not Reportable 07/03/16 04:42 Anisocytosis Not Reportable 07/03/16 04:42 Microcytosis Not Reportable 07/03/16 04:42 Macrocytosis Not Reportable 07/03/16 04:42 Spherocytes Not Reportable 07/03/16 04:42 Pappenheimer Bodies Not Reportable 07/03/16 04:42 Sickle Cells Not Reportable 07/03/16 04:42 Target Cells Not Reportable 07/03/16 04:42 Tear Drop Cells Not Reportable 07/03/16 04:42 Ovalocytes Not Reportable 07/03/16 04:42 Helmet Cells Not Reportable 07/03/16 04:42 [place] Bodies Not Reportable 07/03/16 04:42 [place] Rings Not Reportable 07/03/16 04:42 [place] Cells Not Reportable 07/03/16 04:42 Bite Cells Not Reportable 07/03/16 04:42 Crenated Cell Not Reportable 07/03/16 04:42 Elliptocytes Not Reportable 07/03/16 04:42 Acanthocytes (Spur) Not Reportable 07/03/16 04:42 Rouleaux Not Reportable 07/03/16 04:42 Hemoglobin C Crystals Not Reportable 07/03/16 04:42 Schistocytes Not Reportable 07/03/16 04:42 Malaria parasites Not Reportable 07/03/16 04:42 Low Bodies Not Reportable 07/03/16 04:42 Hem Pathologist Commnt No 07/03/16 04:42 PT 14.1 Sec. (12.2-14.9) 07/03/16 04:42 INR 1.10 (0.87-1.13) 07/03/16 04:42 POC ABG pH 7.384 (7.35-7.45) 07/04/16 04:16 POC ABG pCO2 31.6 (35-45) L 07/04/16 04:16 POC ABG pO2 157 (80-105) H 07/04/16 04:16 POC ABG HCO3 18.9 07/04/16 04:16 POC ABG Total CO2 20 07/04/16 04:16 POC ABG O2 Sat 99 07/04/16 04:16 POC ABG Base Excess -6 07/04/16 04:16 VBG pH 7.384 (7.320-7.420) 07/03/16 04:42 FiO2 30 % 07/04/16 04:16 Sodium 141 mmol/L (137-145) 07/04/16 05:18 Potassium 3.6 mmol/L (3.6-5.0) 07/04/16 05:18 Chloride 103.5 mmol/L (98-107) 07/04/16 05:18 Carbon Dioxide 16 mmol/L (22-30) L 07/04/16 05:18 Anion Gap 25 mmol/L 07/04/16 05:18 BUN 12 mg/dL (7-17) 07/04/16 05:18 Creatinine 1.1 mg/dL (0.7-1.2) 07/04/16 05:18 Estimated GFR > 60 ml/min 07/04/16 05:18 BUN/Creatinine Ratio 10.90 % 07/04/16 05:18 Glucose 72 mg/dL (65-100) 07/04/16 05:18 POC Glucose 82 (70-105) 07/04/16 11:47 Lactic Acid 0.9 mmol/L (0.7-2.0) 07/03/16 14:01 Calcium 4.5 mg/dL (8.4-10.2) L* D 07/04/16 05:18 Total Bilirubin 2.2 mg/dL (0.1-1.2) H 07/03/16 04:42 AST 470 units/L (5-40) H 07/03/16 04:42 ALT 111 units/L (7-56) H 07/03/16 04:42 Alkaline Phosphatase 163 units/L (35-129) H 07/03/16 04:42 Ammonia 43.0 umol/L (25-60) 07/03/16 14:01 Total Protein 8.5 g/dL (6.3-8.2) H 07/03/16 04:42 Albumin 4.2 g/dL (3.9-5) 07/03/16 04:42 Albumin/Globulin Ratio 1.0 % 07/03/16 04:42 TSH 1.450 mlU/mL (0.270-4.200) 07/03/16 06:16 Urine Color [place] (Yellow) 07/03/16 04:31 Urine Turbidity Clear (Clear) 07/03/16 04:31 Urine pH 5.0 (5.0-7.0) 07/03/16 04:31 Ur Specific [place] 1.024 (1.003-1.030) 07/03/16 04:31 Urine Protein >500 mg/dL (Negative) 07/03/16 04:31 Urine Glucose (UA) Neg mg/dL (Negative) 07/03/16 04:31 Urine Ketones 20 mg/dL (Negative) 07/03/16 04:31 Urine Blood Mod (Negative) 07/03/16 04:31 Urine Nitrite Neg (Negative) 07/03/16 04:31 Urine Bilirubin Neg (Negative) 07/03/16 04:31 Urine Urobilinogen < 2.0 mg/dL (<2.0) 07/03/16 04:31 Ur Leukocyte Esterase Neg (Negative) 07/03/16 04:31 Urine WBC (Auto) 3.0 /HPF (0.0-6.0) 07/03/16 04:31 Urine RBC (Auto) 4.0 /HPF (0.0-6.0) 07/03/16 04:31 U Epithel Cells (Auto) < 1.0 /HPF (0-13.0) 07/03/16 04:31 Urine Bacteria (Auto) 1+ /HPF (Negative) 07/03/16 04:31 Urine Mucus 1+ /HPF 07/03/16 04:31 Urine HCG, Qual Negative (Negative) 07/03/16 04:43 Salicylates < 0.3 mg/dL (2.8-20.0) L 07/03/16 06:16 Urine Opiates Screen Presumptive negative 07/03/16 07:00 Urine Methadone Screen Presumptive negative 07/03/16 07:00 Acetaminophen < 15.0 ug/mL (10.0-30.0) 07/03/16 06:16 Ur Barbiturates Screen Presumptive negative 07/03/16 07:00 Ur Phencyclidine Scrn Presumptive negative 07/03/16 07:00 Ur Amphetamines Screen Presumptive negative 07/03/16 07:00 U Benzodiazepines Scrn Presumptive negative 07/03/16 07:00 Urine Cocaine Screen Presumptive negative 07/03/16 07:00 U Marijuana (THC) Screen Presumptive negative 07/03/16 07:00 Drugs of Abuse Note Disclamer 07/03/16 07:00 Plasma/Serum Alcohol < 0.01 gm% (0-0.07) 07/03/16 06:16 - Imaging and Cardiology Chest x-ray: report reviewed
[2016-07-04] MEDS: fentaNYL DRIP Premix 2,000 MCG/100 ML BAG IV SCH (16:49)
[2016-07-04] MEDS: PEPCID IV SCH ×2 (16:57→22:37)
--- NOTE | 2016-07-04 17:07 | XRay Report ---
FINAL REPORT EXAM: XR ABDOMEN 1V AP HISTORY: Feeding tube placement TECHNIQUE: Portable examination of the abdomen PRIORS: None. FINDINGS: The nonspecific intestinal gas is without evidence of intestinal distention or obstructive pattern. The colonic fecal content does not appear increased. There is no visceromegaly or mass. No calcification of urologic significance is visualized radiographically. Mid and lower pelvis not included. IMPRESSION: Nonspecific bowel gas pattern without intestinal distention in the visualized abdomen Distal tip gastric tube is present in the left upper quadrant of the abdomen, in the expected region of the proximal stomach. Distal tip may be just beyond the GE junction.
[2016-07-04] MEDS: AUGMENTIN 875 MG PO SCH ×2 (17:21→22:44)
[2016-07-04] MEDS: APRESOLINE IV PRN (19:47)
--- NOTE | 2016-07-04 23:21 | Hem/Onc Consultation ---
History of Present Illness - Reason for Consult Consult date: 07/04/16 - History of Present Illness Patient presented with syncope outside fire department. Seizures occured and patient intubated. No other history. We are called for thrombocytopenia Past History Past Medical History: other (unable to obtain due to ventilator and mental status) Past Surgical History: Other (unable to obtain due to mental status and ventilator) Social history: other (unable to obtain due to mental status and ventilator) Medications and Allergies Allergies Allergy/AdvReac Type Severity Reaction Status Date / Time No Known Allergies Allergy Unverified 07/03/16 04:14 Home Medications Medication Instructions Recorded Confirmed Last Taken Type No Known Home Medications [No 07/03/16 07/03/16 Unknown History Reported Home Medications] Active Meds: Active Medications Acetaminophen (Tylenol) 650 mg PO Q4H PRN PRN Reason: Pain MILD(1-3)/Fever >100.5/PASTRANA Al Hydrox/Mg Hydrox/Simethicone (Alum-Mag Hydrox-Simeth 406-030-22hb/5ml) 30 ml PO Q4H PRN PRN Reason: Indigestion Amoxicillin/Clavulanate Potassium (Augmentin 875 Mg) 1 each PO Q12HR VENKATA Last Admin: 07/04/16 22:44 Dose: 1 each Lipase/Protease/Amylase (Pancreaze Dr 10,500 Unit) 1 each FEEDTUBE PRN PRN PRN Reason: For Clogged Feeding Tube Bisacodyl (Dulcolax) 10 mg AL QDAY PRN PRN Reason: Constipation unrelieved by MOM Famotidine (Pepcid) 20 mg IV BID VENKATA Last Admin: 07/04/16 22:37 Dose: 20 mg Hydralazine HCl (Apresoline) 10 mg IV Q4HR PRN PRN Reason: Hypertension SBP>160 Last Admin: 07/04/16 19:47 Dose: 10 mg Hydrophilic Ointment (Vaseline Lip Therapy) 1 applic TP Q2HR PRN PRN Reason: Dry Lips Fentanyl Citrate (Fentanyl Drip Premix) 2,000 mcg in 100 mls @ 3.062 mls/hr IV TITR VENKATA; 1 MCG/KG/HR PRN Reason: Protocol Last Admin: 07/04/16 16:49 Dose: 3 mcg/kg/hr, 9.185 mls/hr Propofol (Diprivan 10 Mg/Ml) 1,000 mg in 100 mls @ 1.837 mls/hr IV TITR VENKATA; 5 MCG/KG/MIN PRN Reason: Protocol Last Admin: 07/04/16 17:47 Dose: 50 mcg/kg/min, 18.371 mls/hr Potassium Chloride/Sodium Chloride (Ns/Kcl 20meq) 20 meq in 1,000 mls @ 125 mls /hr IV DIRECT VENKATA Last Admin: 07/04/16 22:38 Dose: 125 mls/hr Lorazepam (Ativan) 2 mg IV Q6H PRN PRN Reason: Agitation Last Admin: 07/04/16 22:08 Dose: 2 mg Magnesium Hydroxide (Milk Of Magnesia) 30 ml PO Q4H PRN PRN Reason: Constipation Multi-Ingred Cream/Lotion/Oil/Oint (Artificial Tears Ophth Oint) 1 applic OU Q4HR PRN PRN Reason: Dry Eye(s) Ondansetron HCl (Zofran) 4 mg IV Q8H PRN PRN Reason: N/V unrelieved by Reglan Simple Syrup (Simple Syrup) 15 ml FEEDTUBE PRN PRN PRN Reason: Hypoglycemia Simple Syrup (Simple Syrup) 30 ml FEEDTUBE PRN PRN PRN Reason: Hypoglycemia Sodium Bicarbonate (Sodium Bicarbonate) 325 mg FEEDTUBE PRN PRN PRN Reason: For Clogged Feeding Tube Sodium Chloride (Nacl 0.9%) 500 ml IR DIRECT PRN PRN Reason: Wound Care Last Admin: 07/04/16 12:31 Dose: 500 ml Review of Systems All systems: negative (intubated) Exam - Constitutional Vitals: Last Vital Signs Temp 98.6 F 07/04/16 20:00 Pulse 109 H 07/04/16 21:50 Resp 14 07/04/16 21:50 BP 105/71 07/04/16 21:50 Pulse Ox 100 07/04/16 21:50 Pain Intensity (0-10): denies any pain - EENT Eyes: PERRL Lymph node exam: negative cervical - Respiratory Respiratory effort: Positive: accessory muscle use - Cardiovascular Rhythm: regular Results - Labs lab Results: Laboratory Results - last 24 hr 07/03/16 07/03/16 07/04/16 18:04 23:46 04:16 WBC RBC Hgb Hct MCV MCH MCHC RDW Plt Count Lymph % (Auto) [place] % (Auto) Eos % (Auto) Baso % (Auto) Lymph # [place] # Eos # Baso # Seg Neutrophils % Seg Neutrophils # POC ABG pH 7.384 POC ABG pCO2 31.6 L POC ABG pO2 157 H POC ABG HCO3 18.9 POC ABG Total CO2 20 POC ABG O2 Sat 99 POC ABG Base Excess -6 FiO2 30 Sodium Potassium Chloride Carbon Dioxide Anion Gap BUN Creatinine Estimated GFR BUN/Creatinine Ratio Glucose POC Glucose 87 74 Calcium Phosphorus 07/04/16 07/04/16 07/04/16 05:18 05:18 05:26 WBC 6.4 RBC 2.64 L Hgb 8.6 L Hct 25.2 L D MCV 95 MCH 33 H MCHC 34 RDW 14.8 Plt Count 50 L Lymph % (Auto) 15.6 [place] % (Auto) 5.0 Eos % (Auto) 0.2 Baso % (Auto) 0.4 Lymph # 1.0 L [place] # 0.3 Eos # 0.0 Baso # 0.0 Seg Neutrophils % 78.8 H Seg Neutrophils # 5.0 POC ABG pH POC ABG pCO2 POC ABG pO2 POC ABG HCO3 POC ABG Total CO2 POC ABG O2 Sat POC ABG Base Excess FiO2 Sodium 141 Potassium 3.6 Chloride 103.5 Carbon Dioxide 16 L Anion Gap 25 BUN 12 Creatinine 1.1 Estimated GFR > 60 BUN/Creatinine Ratio 10.90 Glucose 72 POC Glucose 80 Calcium 4.5 L* D Phosphorus 07/04/16 07/04/16 07/04/16 11:47 15:51 15:51 WBC RBC Hgb Hct MCV MCH MCHC RDW Plt Count Lymph % (Auto) [place] % (Auto) Eos % (Auto) Baso % (Auto) Lymph # [place] # Eos # Baso # Seg Neutrophils % Seg Neutrophils # POC ABG pH POC ABG pCO2 POC ABG pO2 POC ABG HCO3 POC ABG Total CO2 POC ABG O2 Sat POC ABG Base Excess FiO2 Sodium Potassium Chloride Carbon Dioxide Anion Gap BUN Creatinine Estimated GFR BUN/Creatinine Ratio Glucose POC Glucose 82 Calcium 4.8 L* Phosphorus 3.1 07/04/16 18:00 WBC RBC Hgb Hct MCV MCH MCHC RDW Plt Count Lymph % (Auto) [place] % (Auto) Eos % (Auto) Baso % (Auto) Lymph # [place] # Eos # Baso # Seg Neutrophils % Seg Neutrophils # POC ABG pH POC ABG pCO2 POC ABG pO2 POC ABG HCO3 POC ABG Total CO2 POC ABG O2 Sat POC ABG Base Excess FiO2 Sodium Potassium Chloride Carbon Dioxide Anion Gap BUN Creatinine Estimated GFR BUN/Creatinine Ratio Glucose POC Glucose 59 L Calcium Phosphorus Assessment and Plan The patients smear from yesterday and today were reviewed. No evidence of significant schistocytes. Doubt TTP. Possibly secondary to underlying condition or medications like the antibiotics, pepcid, hydralazine. Continue full supportive care. Transfusion per ICU protocols.
[2016-07-05] MEDS: fentaNYL DRIP Premix 2,000 MCG/100 ML BAG IV SCH (03:19)
[2016-07-05 05:28] LABS: Hematocrit 24.1 % (30.3-42.9); Hemoglobin 8.1 gm/dl (10.1-14.3); Mean Corpuscular HGB Conc 34 % (30-34); Mean Corpuscular Hemoglobin 33 pg (28-32); Red Blood Count 2.47 M/mm3 (3.65-5.03); Red Cell Distribution Width 15.2 % (13.2-15.2); White Blood Count 4.8 K/mm3 (4.5-11.0)
[2016-07-05 05:29] LABS: Platelet Count 99 K/mm3 (140-440)
[2016-07-05 05:31] LABS: Mean Corpuscular Volume 97 fl (79-97)
[2016-07-05 05:49] LABS: Alanine Aminotransferase 52 units/L (7-56); Albumin 2.5 g/dL (3.9-5); Albumin/Globulin Ratio 0.9 %; Alkaline Phosphatase 68 units/L (35-129); Anion Gap 23 mmol/L; Blood Urea Nitrogen 12 mg/dL (7-17); Carbon Dioxide 15 mmol/L (22-30); Chloride 105.3 mmol/L (98-107); Glucose 82 mg/dL (65-100); Potassium 3.2 mmol/L (3.6-5.0); Sodium 140 mmol/L (137-145); Total Protein 5.3 g/dL (6.3-8.2)
[2016-07-05 05:55] LABS: Calcium 5.7 mg/dL (8.4-10.2)
[2016-07-05] MEDS: ATIVAN IV PRN ×2 (06:31→16:10)
[2016-07-05] MEDS: DIPRIVAN 10 MG/ML 1,000 MG/100 ML BOTTLE IV SCH (06:31)
[2016-07-05] MEDS: NS/KCL 20MEQ 20 MEQ/1,000 ML BAG IV SCH ×2 (06:36→15:45)
[2016-07-05 07:29] LABS: ISTAT Base Excess -13; ISTAT HCO3 13.3; ISTAT PCO2 27.2 (35-45); ISTAT PH 7.298 (7.35-7.45); ISTAT PO2 130 (80-105); ISTAT SO2 99; ISTAT TCO2 14
--- NOTE | 2016-07-05 09:58 | XRay Report ---
Single view chest: Compared to 07/04/16. History: Followup of respiratory failure. Findings: Borderline cardiomegaly. Trachea is midline. Tip of endotracheal tube in normal position. No consolidation, pneumothorax or pleural effusion. Impression: No acute cardiopulmonary findings.
[2016-07-05] MEDS: PEPCID IV SCH ×2 (10:19→22:29)
[2016-07-05] MEDS: AUGMENTIN 875 MG PO SCH ×2 (10:19→22:30)
--- NOTE | 2016-07-05 10:37 | Consultation ---
History of Present Illness Consult date: 07/05/16 Requesting physician: RENUKA LIMA Reason for Consult: AMS+abnormal CTH Chief complaint: AMS limits direct hx History of present illness: 45 y/o female w/o known medical history was found down and brought to ED by EMS 07/03. Became extremely agitated. She had reportedly an apparent witnessed seizure and was intubated and sedated however details of this event are not clearly documented. She Also had bouts of SVT of unknown etiology, responsive to adenosine. She was febrile on admit but no fever since and no elevated white blood cell count. She was found to have thrombocytopenia and renal failure raising concern for TTP. UDS was negative. Renal failure has improved with volume. Sx of AMS are constant but waxing and waning. There are no clear aggravating, relieving or temporal factors. Severity is such to limit ADLs. Past History Past Medical History: other (unable to obtain due to ventilator and mental status) Past Surgical History: Other (unable to obtain due to mental status and ventilator) Social history: other (unable to obtain due to mental status and ventilator) Family history: other (unable to obtain d/t ventilator/AMS) Medications and Allergies Allergies Allergy/AdvReac Type Severity Reaction Status Date / Time No Known Allergies Allergy Unverified 07/03/16 04:14 Home Medications Medication Instructions Recorded Confirmed Last Taken Type No Known Home Medications [No 07/03/16 07/03/16 Unknown History Reported Home Medications] Active Meds: Active Medications Acetaminophen (Tylenol) 650 mg PO Q4H PRN PRN Reason: Pain MILD(1-3)/Fever >100.5/PASTRANA Al Hydrox/Mg Hydrox/Simethicone (Alum-Mag Hydrox-Simeth 807-179-81ky/5ml) 30 ml PO Q4H PRN PRN Reason: Indigestion Amoxicillin/Clavulanate Potassium (Augmentin 875 Mg) 1 each PO Q12HR [facility] Last Admin: 07/05/16 10:19 Dose: 1 each Lipase/Protease/Amylase (Pancreaze Dr 10,500 Unit) 1 each FEEDTUBE PRN PRN PRN Reason: For Clogged Feeding Tube Bisacodyl (Dulcolax) 10 mg MN QDAY PRN PRN Reason: Constipation unrelieved by MOM Famotidine (Pepcid) 20 mg IV BID [facility] Last Admin: 07/05/16 10:19 Dose: 20 mg Hydralazine HCl (Apresoline) 10 mg IV Q4HR PRN PRN Reason: Hypertension SBP>160 Last Admin: 07/04/16 19:47 Dose: 10 mg Hydrophilic Ointment (Vaseline Lip Therapy) 1 applic TP Q2HR PRN PRN Reason: Dry Lips Fentanyl Citrate (Fentanyl Drip Premix) 2,000 mcg in 100 mls @ 3.062 mls/hr IV TITR VENKATA; 1 MCG/KG/HR PRN Reason: Protocol Last Admin: 07/05/16 03:19 Dose: 3 mcg/kg/hr, 9.185 mls/hr Propofol (Diprivan 10 Mg/Ml) 1,000 mg in 100 mls @ 1.837 mls/hr IV TITR VENKATA; 5 MCG/KG/MIN PRN Reason: Protocol Last Admin: 07/05/16 06:31 Dose: 50 mcg/kg/min, 18.371 mls/hr Potassium Chloride/Sodium Chloride (Ns/Kcl 20meq) 20 meq in 1,000 mls @ 125 mls /hr IV DIRECT VENKATA Last Admin: 07/05/16 06:36 Dose: 125 mls/hr Lorazepam (Ativan) 2 mg IV Q6H PRN PRN Reason: Agitation Last Admin: 07/05/16 06:31 Dose: 2 mg Lorazepam (Ativan) 2 mg IV Q2H PRN PRN Reason: Seizures Magnesium Hydroxide (Milk Of Magnesia) 30 ml PO Q4H PRN PRN Reason: Constipation Multi-Ingred Cream/Lotion/Oil/Oint (Artificial Tears Ophth Oint) 1 applic OU Q4HR PRN PRN Reason: Dry Eye(s) Ondansetron HCl (Zofran) 4 mg IV Q8H PRN PRN Reason: N/V unrelieved by Reglan Simple Syrup (Simple Syrup) 15 ml FEEDTUBE PRN PRN PRN Reason: Hypoglycemia Simple Syrup (Simple Syrup) 30 ml FEEDTUBE PRN PRN PRN Reason: Hypoglycemia Sodium Bicarbonate (Sodium Bicarbonate) 325 mg FEEDTUBE PRN PRN PRN Reason: For Clogged Feeding Tube Sodium Chloride (Nacl 0.9%) 500 ml IR DIRECT PRN PRN Reason: Wound Care Last Admin: 07/04/16 12:31 Dose: 500 ml Review of Systems ROS unobtainable: due to endotracheal tube, due to mental status Physical Examination - Vital Signs Vital Signs: Vital Signs Pulse Ox 82 L 07/03/16 03:56 - Constitutional General appearance: uncomfortable, acutely ill - EENT EENT: Present: ATNC, PERRL, mucous membranes dry, hearing intact, vision intact - Respiratory Respiratory: Present: chest non-tender, lungs clear, no respiratory distress, decreased breath sounds - Cardiovascular Cardiovascular: Present: regular rate Extremities: Present: no peripheral edema bilatateraly, no clubbing, cyanosis, no inflammation, no ischemia or petechiae - Gastrointestinal Gastrointestinal: Present: normoactive bowel sounds, soft, non-distended - Integumentary Integumentary: Present: normal - Neurologic Cranial nerve examination: PERRL, EOMI, VFF, V1/V2/V3 grossly intact, face symmetric, intact, intact gag reflex, intact cough reflex, Intact Vestibulo- ocular r, intact corneal reflex Speech examination: other (follows midline and peripheral commands) Sensorimotor examination: intact Detailed motor examination: full strength in all kamla, other (localizes pain throughout) Motor examination - right side: 5/5: biceps, triceps, wrist flexion, wrist extension, crutching contractor, hip flexors, knee extensors, dorsiflexion, toe extension (EHL) , plantarflexion Motor examination - left side: 5/5: biceps, triceps, wrist flexion, wrist extension, crutching contractor, hip flexors, knee extensors, dorsiflexion, toe extension (EHL) , plantarflexion Detailed sensory examination: intact, pain Reflexes: 2+: ankle, bicep, knee, tricep - Musculoskeletal Musculoskeletal: Present: no fluid collection, no pain, normal range of motion - Psychiatric Psychiatric: Present: mood/affect appropriate, cooperative Results - Laboratory Findings CBC and BMP: 07/05/16 04:34 07/05/16 04:34 Abnormal Lab Findings: Abnormal Labs 07/04/16 07/04/16 07/04/16 04:16 05:18 05:18 RBC 2.64 L Hgb 8.6 L Hct 25.2 L D MCH 33 H Plt Count 50 L Lymph # 1.0 L Seg Neutrophils % 78.8 H POC ABG pH POC ABG pCO2 31.6 L POC ABG pO2 157 H Potassium Carbon Dioxide 16 L POC Glucose Calcium 4.5 L* D AST Total Protein Albumin 07/04/16 07/04/16 07/05/16 15:51 18:00 04:34 RBC 2.47 L Hgb 8.1 L Hct 24.1 L MCH 33 H Plt Count 99 L Lymph # Seg Neutrophils % POC ABG pH POC ABG pCO2 POC ABG pO2 Potassium Carbon Dioxide POC Glucose 59 L Calcium 4.8 L* AST Total Protein Albumin 07/05/16 07/05/16 04:34 05:23 RBC Hgb Hct MCH Plt Count Lymph # Seg Neutrophils % POC ABG pH 7.298 L POC ABG pCO2 27.2 L POC ABG pO2 130 H Potassium 3.2 L Carbon Dioxide 15 L POC Glucose Calcium 5.7 L* D AST 149 H Total Protein 5.3 L D Albumin 2.5 L Assessment and Plan 45 y/o female w/o known medical history brought in 07/03 as found down unclear prior events subsequently became extremely agitated and suffered ? seizure but limited details. She was febrile on admit but WBC normla and no fever since. Pt also found to have anemia/thrombocytopenia and renal failure which has improved w/ IVF although concern raised for TTP. . Ca 4.5. CTH nonacute generalized atrophy/volume loss jelena in cerebellum. These findings are typically assoc w/ toxic medication (e.g. AEDs) or illicit drug use but UDS was negative. On exam pt eyes open, follows all commands, and localizes pain throughout while on Propofol gtt. TSH/NH4 neg. Plan and Recommendation: 1. Telemetry bed w/ Q4 hour neuro checks & Sz precautions 2. MRI Brain +/- Kvng 3. Labs: Serum/Urine Tox, UA/UCx, Electrolytes especially Na, Ca, Mg, and Glucose, TSH/Vit B12/Ammonia and correct as necessary 4. Cont Infectious work up/medical management for UTI, PNA, cellulitis, bacteremia, etc. 5. Avoid hyponatremia, hypo/hyper-calcemia, hypo/hyperglycemia, acidosis, hypoxia/hypoxemia, hypercarbia/hypercapnia 6. Avoid institution of any psychoactive medications (e.g. antihistamines, anticholinergics, BZD, hypnotics, opiates) as able unless low doses of low potency antipsychotic needed for behavioral issues complicating medical care 7. AED therapy: Defer @ this time but will need to re-eval if recurrent seizure or pt able to reflect hx of prior AED use. 8. Avoid meds that can lower sz threshold e.g. Tramadol, fluroquinolones, carbapenems 9. Given unknown EtOH Hx would supplement Thiamine, Folate and B12
--- NOTE | 2016-07-05 12:20 | Progress Note ---
Assessment and Plan 45 y/o female with altered mental state, thrombocytopenia, renal failure and cardiac abnormalities admitted to the ICU with acute respiratory failure requiring mechanical ventilation and concern for possible seizure like activity. 1. Will attempt to extubate later today. 2. Mental state appears to be improved, although very cooperative on large amounts of sedation. UDS was negative. Appreciate Neuro help, will correct calcium. Added folate and thiamine 3. Daily checks of electrolytes 4. Follow up any new neuro recs 5. Cardiac abnormalities. Keep K and Mag at 4 and 2 respectively. Follow up EKG. Will replace Calcium aggressively and recheck. CCT 31 minutes. Subjective Date of service: 07/05/16 Interval history: No acute events. Remains awake on sedation. Appreicate Neurology and Heme help Objective Vital Signs - 12hr 07/05/16 07/05/16 07/05/16 00:20 00:30 00:40 Temperature Pulse Rate 73 71 72 Pulse Rate [ From Monitor] Respiratory 14 14 14 Rate Respiratory Rate [no s/s] Blood Pressure 136/87 144/85 144/85 O2 Sat by Pulse 100 99 100 Oximetry 07/05/16 07/05/16 07/05/16 00:50 01:00 01:10 Temperature Pulse Rate 72 73 79 Pulse Rate [ From Monitor] Respiratory 14 14 14 Rate Respiratory Rate [no s/s] Blood Pressure 141/87 147/88 147/88 O2 Sat by Pulse 100 99 100 Oximetry 07/05/16 07/05/16 07/05/16 01:20 01:30 01:40 Temperature Pulse Rate 74 72 70 Pulse Rate [ From Monitor] Respiratory 14 14 13 Rate Respiratory Rate [no s/s] Blood Pressure 138/89 137/89 137/89 O2 Sat by Pulse 100 100 100 Oximetry 07/05/16 07/05/16 07/05/16 01:50 02:00 02:10 Temperature Pulse Rate 69 67 73 Pulse Rate [ 67 From Monitor] Respiratory 14 14 13 Rate Respiratory Rate [no s/s] Blood Pressure 163/105 167/93 167/93 O2 Sat by Pulse 100 100 100 Oximetry 07/05/16 07/05/16 07/05/16 02:20 02:30 02:40 Temperature Pulse Rate 98 H 94 H 89 Pulse Rate [ From Monitor] Respiratory 16 14 14 Rate Respiratory Rate [no s/s] Blood Pressure 132/100 127/88 127/88 O2 Sat by Pulse 100 100 100 Oximetry 07/05/16 07/05/16 07/05/16 02:50 03:00 03:10 Temperature Pulse Rate 90 75 71 Pulse Rate [ From Monitor] Respiratory 14 14 15 Rate Respiratory Rate [no s/s] Blood Pressure 130/88 130/88 O2 Sat by Pulse 100 100 100 Oximetry 07/05/16 07/05/16 07/05/16 03:20 03:30 03:38 Temperature Pulse Rate 75 69 68 Pulse Rate [ From Monitor] Respiratory 14 14 Rate Respiratory Rate [no s/s] Blood Pressure 152/95 151/88 158/96 O2 Sat by Pulse 100 100 100 Oximetry 07/05/16 07/05/16 07/05/16 03:40 03:50 04:00 Temperature 98.4 F Pulse Rate 67 67 66 Pulse Rate [ 84 From Monitor] Respiratory 14 14 14 Rate Respiratory Rate [no s/s] Blood Pressure 151/88 158/96 151/88 O2 Sat by Pulse 100 100 100 Oximetry 07/05/16 07/05/16 07/05/16 04:10 04:20 04:30 Temperature Pulse Rate 65 65 65 Pulse Rate [ From Monitor] Respiratory 14 14 14 Rate Respiratory Rate [no s/s] Blood Pressure 170/98 159/92 159/92 O2 Sat by Pulse 100 100 100 Oximetry 07/05/16 07/05/16 07/05/16 04:40 04:50 05:00 Temperature Pulse Rate 63 63 62 Pulse Rate [ From Monitor] Respiratory 14 14 14 Rate Respiratory Rate [no s/s] Blood Pressure 160/97 170/93 170/93 O2 Sat by Pulse 100 100 100 Oximetry 07/05/16 07/05/16 07/05/16 05:10 05:20 05:30 Temperature Pulse Rate 62 63 66 Pulse Rate [ From Monitor] Respiratory 14 14 13 Rate Respiratory Rate [no s/s] Blood Pressure 168/96 166/87 166/87 O2 Sat by Pulse 100 100 100 Oximetry 07/05/16 07/05/16 07/05/16 05:40 05:50 06:00 Temperature Pulse Rate 66 100 H 155 H Pulse Rate [ 92 H From Monitor] Respiratory 15 14 25 H Rate Respiratory Rate [no s/s] Blood Pressure 143/90 149/86 149/86 O2 Sat by Pulse 100 100 100 Oximetry 07/05/16 07/05/16 07/05/16 06:10 06:20 06:30 Temperature Pulse Rate 120 H 114 H 102 H Pulse Rate [ From Monitor] Respiratory 16 15 14 Rate Respiratory Rate [no s/s] Blood Pressure 164/80 119/70 112/76 O2 Sat by Pulse 100 100 Oximetry 07/05/16 07/05/16 07/05/16 06:40 06:50 07:00 Temperature Pulse Rate 86 86 81 Pulse Rate [ From Monitor] Respiratory 14 15 15 Rate Respiratory Rate [no s/s] Blood Pressure 112/76 120/83 130/82 O2 Sat by Pulse 100 100 100 Oximetry 07/05/16 07/05/16 07/05/16 07:10 07:20 07:30 Temperature Pulse Rate 80 76 74 Pulse Rate [ From Monitor] Respiratory 15 13 14 Rate Respiratory Rate [no s/s] Blood Pressure 130/82 134/83 140/89 O2 Sat by Pulse 100 100 100 Oximetry 07/05/16 07/05/16 07/05/16 07:40 07:43 07:50 Temperature 98.5 F Pulse Rate 72 70 Pulse Rate [ From Monitor] Respiratory 14 14 Rate Respiratory Rate [no s/s] Blood Pressure 140/89 136/84 O2 Sat by Pulse 100 100 Oximetry 07/05/16 07/05/16 07/05/16 08:00 08:02 08:10 Temperature Pulse Rate 69 70 68 Pulse Rate [ 68 From Monitor] Respiratory 14 13 Rate Respiratory Rate [no s/s] Blood Pressure 139/85 139/85 139/85 O2 Sat by Pulse 100 100 100 Oximetry 07/05/16 07/05/16 07/05/16 08:30 08:45 09:00 Temperature Pulse Rate 71 64 67 Pulse Rate [ From Monitor] Respiratory 14 14 14 Rate Respiratory Rate [no s/s] Blood Pressure 147/90 155/90 155/90 O2 Sat by Pulse 100 100 100 Oximetry 07/05/16 07/05/16 07/05/16 09:15 09:30 09:45 Temperature Pulse Rate 64 63 62 Pulse Rate [ From Monitor] Respiratory 14 14 14 Rate Respiratory Rate [no s/s] Blood Pressure 156/95 167/96 163/95 O2 Sat by Pulse 100 100 100 Oximetry 07/05/16 07/05/16 07/05/16 10:00 10:15 11:34 Temperature Pulse Rate 80 81 79 Pulse Rate [ From Monitor] Respiratory 13 14 Rate Respiratory 14 Rate [no s/s] Blood Pressure 163/95 131/94 149/125 O2 Sat by Pulse 100 100 100 Oximetry 07/05/16 12:00 Temperature 98.1 F Pulse Rate Pulse Rate [ From Monitor] Respiratory Rate Respiratory Rate [no s/s] Blood Pressure O2 Sat by Pulse Oximetry Constitutional: no acute distress, alert, other (orally intubated and sedated) ENT: other (orally intubated) Neck: supple Ascultation: Bilateral: clear Percussion: Bilateral: not dull Cardiovascular: regular rate and rhythm Gastrointestinal: normoactive bowel sounds, soft, non-distended Integumentary: normal Extremities: no cyanosis Neurologic: normal mental status, non-focal exam Psychiatric: mood appropriate CBC and BMP: 07/05/16 04:34 07/05/16 04:34 ABG, PT/INR, D-dimer: ABG POC ABG pH 7.298 (7.35-7.45) L 07/05/16 05:23 POC ABG pCO2 27.2 (35-45) L 07/05/16 05:23 POC ABG pO2 130 (80-105) H 07/05/16 05:23 POC ABG HCO3 13.3 07/05/16 05:23 POC ABG Total CO2 14 07/05/16 05:23 POC ABG O2 Sat 99 07/05/16 05:23 PT/INR, D-dimer PT 14.1 Sec. (12.2-14.9) 07/03/16 04:42 INR 1.10 (0.87-1.13) 07/03/16 04:42 Abnormal lab findings: Abnormal Labs 07/04/16 07/04/16 07/04/16 04:16 05:18 05:18 RBC 2.64 L Hgb 8.6 L Hct 25.2 L D MCH 33 H Plt Count 50 L Lymph # 1.0 L Seg Neutrophils % 78.8 H POC ABG pH POC ABG pCO2 31.6 L POC ABG pO2 157 H Potassium Carbon Dioxide 16 L POC Glucose Calcium 4.5 L* D AST Total Protein Albumin 07/04/16 07/04/16 07/05/16 15:51 18:00 04:34 RBC 2.47 L Hgb 8.1 L Hct 24.1 L MCH 33 H Plt Count 99 L Lymph # Seg Neutrophils % POC ABG pH POC ABG pCO2 POC ABG pO2 Potassium Carbon Dioxide POC Glucose 59 L Calcium 4.8 L* AST Total Protein Albumin 07/05/16 07/05/16 04:34 05:23 RBC Hgb Hct MCH Plt Count Lymph # Seg Neutrophils % POC ABG pH 7.298 L POC ABG pCO2 27.2 L POC ABG pO2 130 H Potassium 3.2 L Carbon Dioxide 15 L POC Glucose Calcium 5.7 L* D AST 149 H Total Protein 5.3 L D Albumin 2.5 L
--- NOTE | 2016-07-05 13:26 | Progress Note ---
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 She was brought to [facility] emergency department and had a seizure episode and was intubated for airway protection. -Status epilepticus: IV sedation, MRI pending ordered by neurologist -Acute respiratory failure: Intubated and sedated -Acute metabolic encephalopathy -Drop hematocrit most likely dilutional -Hypocalcemia: replace and recheck -Thrombocytopenia: [id number] ordered for TTP, peripheral blood smear shows decreased platelets -DVT prophylaxis: SCDs only due to the severe thrombocytopenia History Interval history: Patient seen and examined. Follow up on chair activity which has resolved. Overnight uneventful. No cp, sob, n/v or severe headaches. Imaging, old records , testing, labs, nursing notes reviewed. Plan discussed with patient. Hospitalist Physical - Physical exam Narrative exam: GEN: Intubated and sedated HEENT: ET tube in place NECK: SUPPLE, NO THYROMEGALY, NO JVD, NO LAD CVS: RRR, NORMAL S1S2 LUNGS/CHEST: NORMAL CHEST EXPANSION B, GOOD AIR ENTRY B ABD: SOFT NTND, GBS, NO REBOUND OR GUARDING NEURO: CN 2-12 GROSSLY INTACT, PSY: Sedated - Constitutional Vitals: Temp Pulse Resp BP Pulse Ox 98.1 F 79 14 149/125 100 07/05/16 12:00 07/05/16 11:34 07/05/16 10:15 07/05/16 11:34 07/05/16 11:34 General appearance: Present: no acute distress, well-nourished, other (orally intubated) Results - Labs CBC & Chem 7: 07/05/16 04:34 07/05/16 04:34 Labs: Laboratory Last Values WBC 4.8 K/mm3 (4.5-11.0) 07/05/16 04:34 RBC 2.47 M/mm3 (3.65-5.03) L 07/05/16 04:34 Hgb 8.1 gm/dl (10.1-14.3) L 07/05/16 04:34 Hct 24.1 % (30.3-42.9) L 07/05/16 04:34 MCV 97 fl (79-97) 07/05/16 04:34 MCH 33 pg (28-32) H 07/05/16 04:34 MCHC 34 % (30-34) 07/05/16 04:34 RDW 15.2 % (13.2-15.2) 07/05/16 04:34 Plt Count 99 K/mm3 (140-440) L 07/05/16 04:34 Lymph % (Auto) 15.6 % (13.4-35.0) 07/04/16 05:18 [place] % (Auto) 5.0 % (0.0-7.3) 07/04/16 05:18 Eos % (Auto) 0.2 % (0.0-4.3) 07/04/16 05:18 Baso % (Auto) 0.4 % (0.0-1.8) 07/04/16 05:18 Lymph # 1.0 K/mm3 (1.2-5.4) L 07/04/16 05:18 [place] # 0.3 K/mm3 (0.0-0.8) 07/04/16 05:18 Eos # 0.0 K/mm3 (0.0-0.4) 07/04/16 05:18 Baso # 0.0 K/mm3 (0.0-0.1) 07/04/16 05:18 Add Manual Diff Complete 07/03/16 04:42 Total Counted 100 07/03/16 04:42 Seg Neutrophils % 78.8 % (40.0-70.0) H 07/04/16 05:18 Seg Neuts % (Manual) 94.0 % (40.0-70.0) H 07/03/16 04:42 Band Neutrophils % 0 % 07/03/16 04:42 Lymphocytes % (Manual) 4.0 % (13.4-35.0) L 07/03/16 04:42 Reactive Lymphs % (Man) 0 % 07/03/16 04:42 Monocytes % (Manual) 2.0 % (0.0-7.3) 07/03/16 04:42 Eosinophils % (Manual) 0 % (0.0-4.3) 07/03/16 04:42 Basophils % (Manual) 0 % (0.0-1.8) 07/03/16 04:42 Metamyelocytes % 0 % 07/03/16 04:42 Myelocytes % 0 % 07/03/16 04:42 Promyelocytes % 0 % 07/03/16 04:42 Blast Cells % 0 % 07/03/16 04:42 Nucleated RBC % Not Reportable 07/03/16 04:42 Seg Neutrophils # 5.0 K/mm3 (1.8-7.7) 07/04/16 05:18 Seg Neutrophils # Man 7.1 K/mm3 (1.8-7.7) 07/03/16 04:42 Band Neutrophils # 0.0 K/mm3 07/03/16 04:42 Lymphocytes # (Manual) 0.3 K/mm3 (1.2-5.4) L 07/03/16 04:42 Abs React Lymphs (Man) 0.0 K/mm3 07/03/16 04:42 Monocytes # (Manual) 0.2 K/mm3 (0.0-0.8) 07/03/16 04:42 Eosinophils # (Manual) 0.0 K/mm3 (0.0-0.4) 07/03/16 04:42 Basophils # (Manual) 0.0 K/mm3 (0.0-0.1) 07/03/16 04:42 Metamyelocytes # 0.0 K/mm3 07/03/16 04:42 Myelocytes # 0.0 K/mm3 07/03/16 04:42 Promyelocytes # 0.0 K/mm3 07/03/16 04:42 Blast Cells # 0.0 K/mm3 07/03/16 04:42 WBC Morphology Not Reportable 07/03/16 04:42 Hypersegmented Neuts Not Reportable 07/03/16 04:42 Hyposegmented Neuts Not Reportable 07/03/16 04:42 Hypogranular Neuts Not Reportable 07/03/16 04:42 Smudge Cells Not Reportable 07/03/16 04:42 Toxic Granulation Not Reportable 07/03/16 04:42 Toxic Vacuolation Not Reportable 07/03/16 04:42 Dohle Bodies Not Reportable 07/03/16 04:42 Pelger-Huet Anomaly Not Reportable 07/03/16 04:42 Paul Rods Not Reportable 07/03/16 04:42 Platelet Estimate Appears decreased 07/03/16 04:42 Clumped Platelets Not Reportable 07/03/16 04:42 Plt Clumps, EDTA Not Reportable 07/03/16 04:42 Large Platelets Not Reportable 07/03/16 04:42 Giant Platelets Not Reportable 07/03/16 04:42 Platelet Satelliting Not Reportable 07/03/16 04:42 Plt Morphology Comment Not Reportable 07/03/16 04:42 RBC Morphology Normal 07/03/16 04:42 Dimorphic RBCs Not Reportable 07/03/16 04:42 Polychromasia Not Reportable 07/03/16 04:42 Hypochromasia Not Reportable 07/03/16 04:42 Poikilocytosis Not Reportable 07/03/16 04:42 Anisocytosis Not Reportable 07/03/16 04:42 Microcytosis Not Reportable 07/03/16 04:42 Macrocytosis Not Reportable 07/03/16 04:42 Spherocytes Not Reportable 07/03/16 04:42 Pappenheimer Bodies Not Reportable 07/03/16 04:42 Sickle Cells Not Reportable 07/03/16 04:42 Target Cells Not Reportable 07/03/16 04:42 Tear Drop Cells Not Reportable 07/03/16 04:42 Ovalocytes Not Reportable 07/03/16 04:42 Helmet Cells Not Reportable 07/03/16 04:42 [place] Bodies Not Reportable 07/03/16 04:42 [place] Rings Not Reportable 07/03/16 04:42 [place] Cells Not Reportable 07/03/16 04:42 Bite Cells Not Reportable 07/03/16 04:42 Crenated Cell Not Reportable 07/03/16 04:42 Elliptocytes Not Reportable 07/03/16 04:42 Acanthocytes (Spur) Not Reportable 07/03/16 04:42 Rouleaux Not Reportable 07/03/16 04:42 Hemoglobin C Crystals Not Reportable 07/03/16 04:42 Schistocytes Not Reportable 07/03/16 04:42 Malaria parasites Not Reportable 07/03/16 04:42 Low Bodies Not Reportable 07/03/16 04:42 Hem Pathologist Commnt No 07/03/16 04:42 PT 14.1 Sec. (12.2-14.9) 07/03/16 04:42 INR 1.10 (0.87-1.13) 07/03/16 04:42 POC ABG pH 7.298 (7.35-7.45) L 07/05/16 05:23 POC ABG pCO2 27.2 (35-45) L 07/05/16 05:23 POC ABG pO2 130 (80-105) H 07/05/16 05:23 POC ABG HCO3 13.3 07/05/16 05:23 POC ABG Total CO2 14 07/05/16 05:23 POC ABG O2 Sat 99 07/05/16 05:23 POC ABG Base Excess -13 07/05/16 05:23 VBG pH 7.384 (7.320-7.420) 07/03/16 04:42 FiO2 30 % 07/05/16 05:23 Sodium 140 mmol/L (137-145) 07/05/16 04:34 Potassium 3.2 mmol/L (3.6-5.0) L 07/05/16 04:34 Chloride 105.3 mmol/L (98-107) 07/05/16 04:34 Carbon Dioxide 15 mmol/L (22-30) L 07/05/16 04:34 Anion Gap 23 mmol/L 07/05/16 04:34 BUN 12 mg/dL (7-17) 07/05/16 04:34 Creatinine 0.8 mg/dL (0.7-1.2) 07/05/16 04:34 Estimated GFR > 60 ml/min 07/05/16 04:34 BUN/Creatinine Ratio 15.00 % 07/05/16 04:34 Glucose 82 mg/dL (65-100) 07/05/16 04:34 POC Glucose 93 (70-105) 07/05/16 11:40 Lactic Acid 0.9 mmol/L (0.7-2.0) 07/03/16 14:01 Calcium 5.7 mg/dL (8.4-10.2) L* D 07/05/16 04:34 Phosphorus 3.1 mg/dL (2.5-4.5) 07/04/16 15:51 Total Bilirubin 1.0 mg/dL (0.1-1.2) 07/05/16 04:34 AST 149 units/L (5-40) H 07/05/16 04:34 ALT 52 units/L (7-56) 07/05/16 04:34 Alkaline Phosphatase 68 units/L (35-129) 07/05/16 04:34 Ammonia 43.0 umol/L (25-60) 07/03/16 14:01 Total Protein 5.3 g/dL (6.3-8.2) L D 07/05/16 04:34 Albumin 2.5 g/dL (3.9-5) L 07/05/16 04:34 Albumin/Globulin Ratio 0.9 % 07/05/16 04:34 TSH 1.450 mlU/mL (0.270-4.200) 07/03/16 06:16 Urine Color [place] (Yellow) 07/03/16 04:31 Urine Turbidity Clear (Clear) 07/03/16 04:31 Urine pH 5.0 (5.0-7.0) 07/03/16 04:31 Ur Specific [place] 1.024 (1.003-1.030) 07/03/16 04:31 Urine Protein >500 mg/dL (Negative) 07/03/16 04:31 Urine Glucose (UA) Neg mg/dL (Negative) 07/03/16 04:31 Urine Ketones 20 mg/dL (Negative) 07/03/16 04:31 Urine Blood Mod (Negative) 07/03/16 04:31 Urine Nitrite Neg (Negative) 07/03/16 04:31 Urine Bilirubin Neg (Negative) 07/03/16 04:31 Urine Urobilinogen < 2.0 mg/dL (<2.0) 07/03/16 04:31 Ur Leukocyte Esterase Neg (Negative) 07/03/16 04:31 Urine WBC (Auto) 3.0 /HPF (0.0-6.0) 07/03/16 04:31 Urine RBC (Auto) 4.0 /HPF (0.0-6.0) 07/03/16 04:31 U Epithel Cells (Auto) < 1.0 /HPF (0-13.0) 07/03/16 04:31 Urine Bacteria (Auto) 1+ /HPF (Negative) 07/03/16 04:31 Urine Mucus 1+ /HPF 07/03/16 04:31 Urine HCG, Qual Negative (Negative) 07/03/16 04:43 Salicylates < 0.3 mg/dL (2.8-20.0) L 07/03/16 06:16 Urine Opiates Screen Presumptive negative 07/03/16 07:00 Urine Methadone Screen Presumptive negative 07/03/16 07:00 Acetaminophen < 15.0 ug/mL (10.0-30.0) 07/03/16 06:16 Ur Barbiturates Screen Presumptive negative 07/03/16 07:00 Ur Phencyclidine Scrn Presumptive negative 07/03/16 07:00 Ur Amphetamines Screen Presumptive negative 07/03/16 07:00 U Benzodiazepines Scrn Presumptive negative 07/03/16 07:00 Urine Cocaine Screen Presumptive negative 07/03/16 07:00 U Marijuana (THC) Screen Presumptive negative 07/03/16 07:00 Drugs of Abuse Note Disclamer 07/03/16 07:00 Plasma/Serum Alcohol < 0.01 gm% (0-0.07) 07/03/16 06:16
[2016-07-05] MEDS: HALDOL IV PRN (16:30)
[2016-07-05] MEDS: FOLVITE PO SCH (17:27)
[2016-07-05] MEDS: VITAMIN B-1 PO SCH (17:27)
--- NOTE | 2016-07-06 00:24 | Magnetic Resonance Report ---
FINAL REPORT PROCEDURE: MR BRAIN WO CON TECHNIQUE: Magnetic resonance imaging of the brain was performed without contrast material. HISTORY: Possible seizure. Altered mental status. COMPARISON: There no prior brain MRI exams available to compare. Comparison is made to a recent head CT scan obtained 2 days ago on July 03, 2016 FINDINGS: There is significant motion artifact on several sequences which partially limits this exam. There is no MRI evidence of intracranial hemorrhage or edema or infarct or shift or mass. Diffusion images show no acute ischemic change. There is moderate cerebral atrophy. This involves both cerebral hemispheres and the cerebellum. This is greater than expected for the patient's age. The significance of this is uncertain. The pituitary gland is seen to be flattened in the floor of the sella turcica. The sella turcica is mostly filled with CSF. This appearance of the pituitary gland is sometimes referred to as an empty sella and can be seen occasionally as a normal variant. Extensive mucosal thickening noted in left maxillary sinus with moderate mucosal thickening in right maxillary sinus and ethmoid air cells and sphenoid sinus. There may be some fluid in the sphenoid sinus as well. Moderate amount of fluid in the right mastoid air cells also noted. IMPRESSION: 1. There is no MRI evidence of hemorrhage or edema or infarct or shift or mass or acute ischemic change or distinct acute finding involving the brain itself on this noncontrast brain MRI 2. However there is moderate to severe atrophy of both cerebral hemispheres and of the cerebellum. This is greater than expected for the patient's age. The clinical significance of this atrophy is uncertain. 3. There is extensive mucosal thickening in the left maxillary sinus and moderate mucosal thickening in the right maxillary sinus and ethmoid air cells and sphenoid sinus and some fluid in the sphenoid sinus also. These findings indicate some element of sinus disease. There is also moderate amount of fluid in the right mastoid air cells. 4. There is significant motion artifact on several sequences which partially limits this exam. 5. If there is continued concern for brain abnormality or unexplained symptoms and further evaluation is still desired, follow-up brain MRI using gadolinium IV contrast would be recommended only if clinically indicated.
[2016-07-06] MEDS: APRESOLINE IV PRN ×4 (01:00→23:42)
[2016-07-06] MEDS: NS/KCL 20MEQ 20 MEQ/1,000 ML BAG IV SCH ×3 (01:49→19:58)
--- NOTE | 2016-07-06 09:11 | Progress Note ---
Assessment and Plan 45 y/o female with altered mental state, thrombocytopenia, renal failure and cardiac abnormalities admitted to the ICU with acute respiratory failure requiring mechanical ventilation and concern for possible seizure like activity. 1. After speaking with Nursing, suggest intiating CIWA protocol 2. Continue Thiamine and folate. correcting calcium. Suggest rechecking later today and tomorrow 3. Wean FiO2 to off as tolerated. 4. Follow up any new neuro recs 5. Will continue ICU monitoring, pending what CIWA score is. Subjective Date of service: 07/06/16 Interval history: Successful extubation on yesterday. No acute events overnight. Had MRI but without contrast. Unable to lie still. Spoke with nursing at bedside who spoke with her mother. Mother states patient drinks relatively heavy. 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 No fever. BP and HR elevated. Objective Vital Signs - 12hr 07/05/16 07/05/16 07/05/16 21:30 22:00 22:30 Temperature Pulse Rate 107 H 101 H 109 H Respiratory 19 18 16 Rate Respiratory 18 Rate [no s/s] Blood Pressure 196/97 178/93 176/103 O2 Sat by Pulse 100 100 100 Oximetry 07/05/16 07/05/16 07/05/16 23:00 23:13 23:31 Temperature Pulse Rate 101 H 104 H 97 H Respiratory 22 19 18 Rate Respiratory Rate [no s/s] Blood Pressure 171/95 171/95 171/95 O2 Sat by Pulse 100 100 100 Oximetry 07/06/16 07/06/16 07/06/16 00:00 00:31 01:00 Temperature 98.8 F Pulse Rate 99 H 99 H 94 H Respiratory 17 17 18 Rate Respiratory Rate [no s/s] Blood Pressure 177/99 177/99 192/93 O2 Sat by Pulse 100 100 100 Oximetry 07/06/16 07/06/16 07/06/16 01:30 02:00 02:31 Temperature Pulse Rate 97 H 115 H 125 H Respiratory 17 17 21 Rate Respiratory Rate [no s/s] Blood Pressure 191/108 156/90 156/90 O2 Sat by Pulse 100 100 100 Oximetry 07/06/16 07/06/16 07/06/16 03:00 03:31 04:00 Temperature 98.9 F Pulse Rate 139 H 121 H 121 H Respiratory 19 16 17 Rate Respiratory Rate [no s/s] Blood Pressure 150/84 136/84 150/81 O2 Sat by Pulse 100 100 100 Oximetry 07/06/16 07/06/16 07/06/16 04:31 05:00 05:31 Temperature Pulse Rate 117 H 130 H 109 H Respiratory 19 20 18 Rate Respiratory Rate [no s/s] Blood Pressure 150/81 142/96 163/88 O2 Sat by Pulse 100 100 Oximetry 07/06/16 07/06/16 07/06/16 06:00 06:31 07:01 Temperature Pulse Rate 117 H 125 H 119 H Respiratory 19 20 18 Rate Respiratory Rate [no s/s] Blood Pressure 163/96 166/88 162/116 O2 Sat by Pulse 99 Oximetry 07/06/16 07/06/16 07/06/16 07:30 07:42 08:00 Temperature Pulse Rate 110 H 111 H Respiratory 21 19 Rate Respiratory Rate [no s/s] Blood Pressure 167/96 156/94 O2 Sat by Pulse 100 Oximetry Constitutional: no acute distress, alert ENT: oropharynx dry Neck: supple Ascultation: Bilateral: clear Percussion: Bilateral: not dull Cardiovascular: regular rate and rhythm (tachycardia) Gastrointestinal: normoactive bowel sounds, soft, non-distended Integumentary: normal Extremities: no cyanosis Neurologic: normal mental status, non-focal exam Psychiatric: mood appropriate CBC and BMP: 07/05/16 04:34 07/05/16 04:34 ABG, PT/INR, D-dimer: ABG POC ABG pH 7.298 (7.35-7.45) L 07/05/16 05:23 POC ABG pCO2 27.2 (35-45) L 07/05/16 05:23 POC ABG pO2 130 (80-105) H 07/05/16 05:23 POC ABG HCO3 13.3 07/05/16 05:23 POC ABG Total CO2 14 07/05/16 05:23 POC ABG O2 Sat 99 07/05/16 05:23 PT/INR, D-dimer PT 14.1 Sec. (12.2-14.9) 07/03/16 04:42 INR 1.10 (0.87-1.13) 07/03/16 04:42 Abnormal lab findings: Abnormal Labs 04/13/17 04/13/17 04/13/17 04:16 05:18 05:18 RBC 2.64 L Hgb 8.6 L Hct 25.2 L D MCH 33 H Plt Count 50 L Lymph # 1.0 L Seg Neutrophils % 78.8 H POC ABG pH POC ABG pCO2 31.6 L POC ABG pO2 157 H Potassium Carbon Dioxide 16 L POC Glucose Calcium 4.5 L* D AST Total Protein Albumin 07/04/16 07/04/16 07/05/16 15:51 18:00 04:34 RBC 2.47 L Hgb 8.1 L Hct 24.1 L MCH 33 H Plt Count 99 L Lymph # Seg Neutrophils % POC ABG pH POC ABG pCO2 POC ABG pO2 Potassium Carbon Dioxide POC Glucose 59 L Calcium 4.8 L* AST Total Protein Albumin 07/05/16 07/05/16 07/05/16 04:34 05:23 17:47 RBC Hgb Hct MCH Plt Count Lymph # Seg Neutrophils % POC ABG pH 7.298 L POC ABG pCO2 27.2 L POC ABG pO2 130 H Potassium 3.2 L Carbon Dioxide 15 L POC Glucose 138 H Calcium 5.7 L* D AST 149 H Total Protein 5.3 L D Albumin 2.5 L 07/06/16 01:39 RBC Hgb Hct MCH Plt Count Lymph # Seg Neutrophils % POC ABG pH POC ABG pCO2 POC ABG pO2 Potassium Carbon Dioxide POC Glucose 134 H Calcium AST Total Protein Albumin
--- NOTE | 2016-07-06 10:18 | XRay Report ---
AP CHEST :07/06/16 CLINICAL: Followup respiratory failure. COMPARISON:07/05/16 FINDINGS: The endotracheal tube has been removed. Very mild subsegmental atelectasis of the right upper lobe at the minor fissure. The lungs are otherwise clear. The heart is large. Normal pulmonary vessels. A feeding tube is satisfactory. The bones and soft tissues are normal. IMPRESSION: Mild right subsegmental atelectasis. Cardiomegaly but no CHF.
[2016-07-06] MEDS: ATIVAN IV PRN ×4 (10:20→23:42)
[2016-07-06] MEDS: PEPCID IV SCH ×2 (10:27→22:21)
[2016-07-06] MEDS: FOLVITE PO SCH (10:28)
[2016-07-06] MEDS: VITAMIN B-1 PO SCH (10:28)
[2016-07-06] MEDS: AUGMENTIN 875 MG PO SCH ×2 (10:28→22:21)
--- NOTE | 2016-07-06 12:03 | Hem/Onc Progress Note ---
Assessment and Plan - Patient Problems (1) Fever Current Visit: Yes Status: Acute Qualifiers: Fever type: unspecified Encounter type: E Qualified Code(s): R50.9 - Fever, unspecified Plan to address problem: Thrombocytopenia stable to improved. Check CBC. Call with questions. On full supportive care in ICU setting. Subjective Date of service: 07/06/16 Interval history: Extubated on CIWA protocol. No new complains. Objective - Constitutional Vitals: Last Vital Signs Temp 98.2 F 07/06/16 08:00 Pulse 121 H 07/06/16 10:26 Resp 19 07/06/16 08:00 BP 186/106 07/06/16 10:26 Pulse Ox 100 07/06/16 07:42 Pain Intensity (0-10): denies any pain - Respiratory Respiratory: bilateral: CTA - Cardiovascular Rhythm: regular - Labs Lab Results: Laboratory Results - last 24 hr 07/05/16 07/05/16 07/06/16 11:40 17:47 01:39 POC Glucose 93 138 H 134 H
--- NOTE | 2016-07-06 12:51 | Progress Note ---
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 She was brought to [facility] emergency department, had a seizure episode and was intubated for airway protection. -Status epilepticus, resolved -Acute respiratory failure, resolved extubated 07/05/2016 -Acute metabolic encephalopathy -Drop hematocrit most likely dilutional -Hypocalcemia: replace and recheck -Thrombocytopenia: [id number] ordered for TTP, peripheral blood smear shows decreased platelets -DVT prophylaxis: SCDs only due to the severe thrombocytopenia New issue: Patient is being treated as alcohol withdrawal, delirium tremens seizure. Still in restraints, still confused. CIWA score still high; therefore , continue ICU monitoring Ordered a.m. labs History Interval history: Patient seen and examined. Follow up on seizures. Overnight uneventful. No cp, sob, n/v or severe headaches. Imaging, old records, testing, labs, nursing notes reviewed. Plan discussed with patient. Hospitalist Physical - Physical exam Narrative exam: GEN: WDWN, NAD, AWAKE, ALERT, ORIENTATED x 1 CVS: Regular tachycardia NORMAL S1S2 LUNGS/CHEST: NORMAL CHEST EXPANSION B, GOOD AIR ENTRY B ABD: SOFT NTND, GBS, NO REBOUND OR GUARDING MSK: FROM X 4 EXTREMITIES NEURO: CN 2-12 GROSSLY INTACT, follow some commands PSY: Anxious - Constitutional Vitals: Temp Pulse Resp BP Pulse Ox 98.2 F 121 H 19 186/106 100 07/06/16 08:00 07/06/16 10:26 07/06/16 08:00 07/06/16 10:26 07/06/16 07:42 General appearance: Present: no acute distress, well-nourished Results - Labs CBC & Chem 7: 07/05/16 04:34 07/05/16 04:34 Labs: Laboratory Last Values WBC 4.8 K/mm3 (4.5-11.0) 07/05/16 04:34 RBC 2.47 M/mm3 (3.65-5.03) L 07/05/16 04:34 Hgb 8.1 gm/dl (10.1-14.3) L 07/05/16 04:34 Hct 24.1 % (30.3-42.9) L 07/05/16 04:34 MCV 97 fl (79-97) 07/05/16 04:34 MCH 33 pg (28-32) H 07/05/16 04:34 MCHC 34 % (30-34) 07/05/16 04:34 RDW 15.2 % (13.2-15.2) 07/05/16 04:34 Plt Count 99 K/mm3 (140-440) L 07/05/16 04:34 Lymph % (Auto) 15.6 % (13.4-35.0) 07/04/16 05:18 [place] % (Auto) 5.0 % (0.0-7.3) 07/04/16 05:18 Eos % (Auto) 0.2 % (0.0-4.3) 07/04/16 05:18 Baso % (Auto) 0.4 % (0.0-1.8) 07/04/16 05:18 Lymph # 1.0 K/mm3 (1.2-5.4) L 07/04/16 05:18 [place] # 0.3 K/mm3 (0.0-0.8) 07/04/16 05:18 Eos # 0.0 K/mm3 (0.0-0.4) 07/04/16 05:18 Baso # 0.0 K/mm3 (0.0-0.1) 07/04/16 05:18 Add Manual Diff Complete 07/03/16 04:42 Total Counted 100 07/03/16 04:42 Seg Neutrophils % 78.8 % (40.0-70.0) H 07/04/16 05:18 Seg Neuts % (Manual) 94.0 % (40.0-70.0) H 07/03/16 04:42 Band Neutrophils % 0 % 07/03/16 04:42 Lymphocytes % (Manual) 4.0 % (13.4-35.0) L 07/03/16 04:42 Reactive Lymphs % (Man) 0 % 07/03/16 04:42 Monocytes % (Manual) 2.0 % (0.0-7.3) 07/03/16 04:42 Eosinophils % (Manual) 0 % (0.0-4.3) 07/03/16 04:42 Basophils % (Manual) 0 % (0.0-1.8) 07/03/16 04:42 Metamyelocytes % 0 % 07/03/16 04:42 Myelocytes % 0 % 07/03/16 04:42 Promyelocytes % 0 % 07/03/16 04:42 Blast Cells % 0 % 07/03/16 04:42 Nucleated RBC % Not Reportable 07/03/16 04:42 Seg Neutrophils # 5.0 K/mm3 (1.8-7.7) 07/04/16 05:18 Seg Neutrophils # Man 7.1 K/mm3 (1.8-7.7) 07/03/16 04:42 Band Neutrophils # 0.0 K/mm3 07/03/16 04:42 Lymphocytes # (Manual) 0.3 K/mm3 (1.2-5.4) L 07/03/16 04:42 Abs React Lymphs (Man) 0.0 K/mm3 07/03/16 04:42 Monocytes # (Manual) 0.2 K/mm3 (0.0-0.8) 07/03/16 04:42 Eosinophils # (Manual) 0.0 K/mm3 (0.0-0.4) 07/03/16 04:42 Basophils # (Manual) 0.0 K/mm3 (0.0-0.1) 07/03/16 04:42 Metamyelocytes # 0.0 K/mm3 07/03/16 04:42 Myelocytes # 0.0 K/mm3 07/03/16 04:42 Promyelocytes # 0.0 K/mm3 07/03/16 04:42 Blast Cells # 0.0 K/mm3 07/03/16 04:42 WBC Morphology Not Reportable 07/03/16 04:42 Hypersegmented Neuts Not Reportable 07/03/16 04:42 Hyposegmented Neuts Not Reportable 07/03/16 04:42 Hypogranular Neuts Not Reportable 07/03/16 04:42 Smudge Cells Not Reportable 07/03/16 04:42 Toxic Granulation Not Reportable 07/03/16 04:42 Toxic Vacuolation Not Reportable 07/03/16 04:42 Dohle Bodies Not Reportable 07/03/16 04:42 Pelger-Huet Anomaly Not Reportable 07/03/16 04:42 Paul Rods Not Reportable 07/03/16 04:42 Platelet Estimate Appears decreased 07/03/16 04:42 Clumped Platelets Not Reportable 07/03/16 04:42 Plt Clumps, EDTA Not Reportable 07/03/16 04:42 Large Platelets Not Reportable 07/03/16 04:42 Giant Platelets Not Reportable 07/03/16 04:42 Platelet Satelliting Not Reportable 07/03/16 04:42 Plt Morphology Comment Not Reportable 07/03/16 04:42 RBC Morphology Normal 07/03/16 04:42 Dimorphic RBCs Not Reportable 07/03/16 04:42 Polychromasia Not Reportable 07/03/16 04:42 Hypochromasia Not Reportable 07/03/16 04:42 Poikilocytosis Not Reportable 07/03/16 04:42 Anisocytosis Not Reportable 07/03/16 04:42 Microcytosis Not Reportable 07/03/16 04:42 Macrocytosis Not Reportable 07/03/16 04:42 Spherocytes Not Reportable 07/03/16 04:42 Pappenheimer Bodies Not Reportable 07/03/16 04:42 Sickle Cells Not Reportable 07/03/16 04:42 Target Cells Not Reportable 07/03/16 04:42 Tear Drop Cells Not Reportable 07/03/16 04:42 Ovalocytes Not Reportable 07/03/16 04:42 Helmet Cells Not Reportable 07/03/16 04:42 [place] Bodies Not Reportable 07/03/16 04:42 [place] Rings Not Reportable 07/03/16 04:42 [place] Cells Not Reportable 07/03/16 04:42 Bite Cells Not Reportable 07/03/16 04:42 Crenated Cell Not Reportable 07/03/16 04:42 Elliptocytes Not Reportable 07/03/16 04:42 Acanthocytes (Spur) Not Reportable 07/03/16 04:42 Rouleaux Not Reportable 07/03/16 04:42 Hemoglobin C Crystals Not Reportable 07/03/16 04:42 Schistocytes Not Reportable 07/03/16 04:42 Malaria parasites Not Reportable 07/03/16 04:42 Low Bodies Not Reportable 07/03/16 04:42 Hem Pathologist Commnt No 07/03/16 04:42 PT 14.1 Sec. (12.2-14.9) 07/03/16 04:42 INR 1.10 (0.87-1.13) 07/03/16 04:42 POC ABG pH 7.298 (7.35-7.45) L 07/05/16 05:23 POC ABG pCO2 27.2 (35-45) L 07/05/16 05:23 POC ABG pO2 130 (80-105) H 07/05/16 05:23 POC ABG HCO3 13.3 07/05/16 05:23 POC ABG Total CO2 14 07/05/16 05:23 POC ABG O2 Sat 99 07/05/16 05:23 POC ABG Base Excess -13 07/05/16 05:23 VBG pH 7.384 (7.320-7.420) 07/03/16 04:42 FiO2 30 % 07/05/16 05:23 Sodium 140 mmol/L (137-145) 07/05/16 04:34 Potassium 3.2 mmol/L (3.6-5.0) L 07/05/16 04:34 Chloride 105.3 mmol/L (98-107) 07/05/16 04:34 Carbon Dioxide 15 mmol/L (22-30) L 07/05/16 04:34 Anion Gap 23 mmol/L 07/05/16 04:34 BUN 12 mg/dL (7-17) 07/05/16 04:34 Creatinine 0.8 mg/dL (0.7-1.2) 07/05/16 04:34 Estimated GFR > 60 ml/min 07/05/16 04:34 BUN/Creatinine Ratio 15.00 % 07/05/16 04:34 Glucose 82 mg/dL (65-100) 07/05/16 04:34 POC Glucose 134 (70-105) H 07/06/16 01:39 Lactic Acid 0.9 mmol/L (0.7-2.0) 07/03/16 14:01 Calcium 5.7 mg/dL (8.4-10.2) L* D 07/05/16 04:34 Phosphorus 3.1 mg/dL (2.5-4.5) 07/04/16 15:51 Total Bilirubin 1.0 mg/dL (0.1-1.2) 07/05/16 04:34 AST 149 units/L (5-40) H 07/05/16 04:34 ALT 52 units/L (7-56) 07/05/16 04:34 Alkaline Phosphatase 68 units/L (35-129) 07/05/16 04:34 Ammonia 43.0 umol/L (25-60) 07/03/16 14:01 Total Protein 5.3 g/dL (6.3-8.2) L D 07/05/16 04:34 Albumin 2.5 g/dL (3.9-5) L 07/05/16 04:34 Albumin/Globulin Ratio 0.9 % 07/05/16 04:34 TSH 1.450 mlU/mL (0.270-4.200) 07/03/16 06:16 Urine Color [place] (Yellow) 07/03/16 04:31 Urine Turbidity Clear (Clear) 07/03/16 04:31 Urine pH 5.0 (5.0-7.0) 07/03/16 04:31 Ur Specific [place] 1.024 (1.003-1.030) 07/03/16 04:31 Urine Protein >500 mg/dL (Negative) 07/03/16 04:31 Urine Glucose (UA) Neg mg/dL (Negative) 07/03/16 04:31 Urine Ketones 20 mg/dL (Negative) 07/03/16 04:31 Urine Blood Mod (Negative) 07/03/16 04:31 Urine Nitrite Neg (Negative) 07/03/16 04:31 Urine Bilirubin Neg (Negative) 07/03/16 04:31 Urine Urobilinogen < 2.0 mg/dL (<2.0) 07/03/16 04:31 Ur Leukocyte Esterase Neg (Negative) 07/03/16 04:31 Urine WBC (Auto) 3.0 /HPF (0.0-6.0) 07/03/16 04:31 Urine RBC (Auto) 4.0 /HPF (0.0-6.0) 07/03/16 04:31 U Epithel Cells (Auto) < 1.0 /HPF (0-13.0) 07/03/16 04:31 Urine Bacteria (Auto) 1+ /HPF (Negative) 07/03/16 04:31 Urine Mucus 1+ /HPF 07/03/16 04:31 Urine HCG, Qual Negative (Negative) 07/03/16 04:43 Salicylates < 0.3 mg/dL (2.8-20.0) L 07/03/16 06:16 Urine Opiates Screen Presumptive negative 07/03/16 07:00 Urine Methadone Screen Presumptive negative 07/03/16 07:00 Acetaminophen < 15.0 ug/mL (10.0-30.0) 07/03/16 06:16 Ur Barbiturates Screen Presumptive negative 07/03/16 07:00 Ur Phencyclidine Scrn Presumptive negative 07/03/16 07:00 Ur Amphetamines Screen Presumptive negative 07/03/16 07:00 U Benzodiazepines Scrn Presumptive negative 07/03/16 07:00 Urine Cocaine Screen Presumptive negative 07/03/16 07:00 U Marijuana (THC) Screen Presumptive negative 07/03/16 07:00 Drugs of Abuse Note Disclamer 07/03/16 07:00 Plasma/Serum Alcohol < 0.01 gm% (0-0.07) 07/03/16 06:16
[2016-07-06] MEDS: HALDOL IV PRN (13:15)
[2016-07-06 16:42] LABS: Basophils % (Auto) 0.5 % (0.0-1.8); Eosinophils % (Auto) 0.2 % (0.0-4.3); Hematocrit 25.7 % (30.3-42.9); Hemoglobin 8.7 gm/dl (10.1-14.3); Mean Corpuscular HGB Conc 34 % (30-34); Mean Corpuscular Hemoglobin 33 pg (28-32); Mean Corpuscular Volume 97 fl (79-97); Red Blood Count 2.65 M/mm3 (3.65-5.03); Red Cell Distribution Width 14.6 % (13.2-15.2); White Blood Count 4.5 K/mm3 (4.5-11.0)
[2016-07-06 16:43] LABS: Platelet Count 77 K/mm3 (140-440)
[2016-07-07] MEDS: ATIVAN IV PRN ×9 (01:42→21:44)
[2016-07-07] MEDS: NS/KCL 20MEQ 20 MEQ/1,000 ML BAG IV SCH ×3 (03:49→21:42)
[2016-07-07] MEDS: APRESOLINE IV PRN ×6 (03:55→21:43)
[2016-07-07 05:52] LABS: Hematocrit 28.9 % (30.3-42.9); Hemoglobin 9.6 gm/dl (10.1-14.3); Mean Corpuscular HGB Conc 33 % (30-34); Mean Corpuscular Hemoglobin 33 pg (28-32); Mean Corpuscular Volume 98 fl (79-97); Platelet Count 100 K/mm3 (140-440); Red Blood Count 2.95 M/mm3 (3.65-5.03); Red Cell Distribution Width 15.5 % (13.2-15.2)
[2016-07-07 06:39] LABS: Anion Gap 20 mmol/L; Blood Urea Nitrogen 10 mg/dL (7-17); Carbon Dioxide 18 mmol/L (22-30); Chloride 105.9 mmol/L (98-107); Glucose 109 mg/dL (65-100); Sodium 140 mmol/L (137-145)
[2016-07-07 06:44] LABS: Calcium 5.8 mg/dL (8.4-10.2)
[2016-07-07] MEDS: PEPCID IV SCH ×2 (09:26→21:43)
[2016-07-07] MEDS: FOLVITE PO SCH (09:26)
[2016-07-07] MEDS: VITAMIN B-1 PO SCH (09:26)
[2016-07-07] MEDS: AUGMENTIN 875 MG PO SCH ×2 (09:28→21:42)
[2016-07-07] MEDS ORDERED: CALCIUM GLUCONATE 2,000 MG in NACL 0.9% 100 ML IV ONE (10:44)
[2016-07-07] MEDS ORDERED: MAGNESIUM SULFATE 2GM/50ML 2 GM/50 ML BAG IV ONE (10:45)
--- NOTE | 2016-07-07 10:49 | Progress Note ---
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 She was brought to [facility] emergency department, had a seizure episode and was intubated for airway protection. -Status epilepticus, resolved -Acute respiratory failure, resolved extubated 07/05/2016 -Acute metabolic encephalopathy -Drop hematocrit most likely dilutional -Hypocalcemia: replace and recheck -Thrombocytopenia: [id number] ordered for TTP, peripheral blood smear shows decreased platelets -DVT prophylaxis: SCDs only due to the severe thrombocytopenia New issue: Patient is being treated as alcohol withdrawal, delirium tremens seizure. Still in restraints, still confused. CIWA score still high; therefore , continue ICU monitoring Ordered a.m. labs Patient history of alcohol abuse. Current CIWA score is 23\ Ordered Lopressor via NG tube Replace calcium IV gluconate Order restraints Give IV magnesium first in order to Corrected calcium level History Interval history: Patient seen and examined. Follow up on seizures. Overnight uneventful. No cp, sob, n/v or severe headaches. Imaging, old records, testing, labs, nursing notes reviewed. Plan discussed with patient. Hospitalist Physical - Physical exam Narrative exam: GEN: WDWN, NAD, AWAKE, ALERT, ORIENTATED x 1 CVS: Regular tachycardia NORMAL S1S2 LUNGS/CHEST: NORMAL CHEST EXPANSION B, GOOD AIR ENTRY B ABD: SOFT NTND, GBS, NO REBOUND OR GUARDING MSK: FROM X 4 EXTREMITIES NEURO: CN 2-12 GROSSLY INTACT, follow some commands PSY: Anxious - Constitutional Vitals: Temp Pulse Resp BP Pulse Ox 99.1 F 131 H 40 H 166/99 100 07/07/16 08:00 07/07/16 08:01 07/07/16 08:01 07/07/16 08:01 07/07/16 08:01 General appearance: Present: no acute distress, well-nourished Results - Labs CBC & Chem 7: 07/07/16 04:41 07/07/16 04:41 Labs: Laboratory Last Values WBC 5.0 K/mm3 (4.5-11.0) 07/07/16 04:41 RBC 2.95 M/mm3 (3.65-5.03) L 07/07/16 04:41 Hgb 9.6 gm/dl (10.1-14.3) L 07/07/16 04:41 Hct 28.9 % (30.3-42.9) L 07/07/16 04:41 MCV 98 fl (79-97) H 07/07/16 04:41 MCH 33 pg (28-32) H 07/07/16 04:41 MCHC 33 % (30-34) 07/07/16 04:41 RDW 15.5 % (13.2-15.2) H 07/07/16 04:41 Plt Count 100 K/mm3 (140-440) L 07/07/16 04:41 Lymph % (Auto) 15.6 % (13.4-35.0) 07/06/16 06:30 [place] % (Auto) 11.3 % (0.0-7.3) H 07/06/16 06:30 Eos % (Auto) 0.2 % (0.0-4.3) 07/06/16 06:30 Baso % (Auto) 0.5 % (0.0-1.8) 07/06/16 06:30 Lymph # 0.7 K/mm3 (1.2-5.4) L 07/06/16 06:30 [place] # 0.5 K/mm3 (0.0-0.8) 07/06/16 06:30 Eos # 0.0 K/mm3 (0.0-0.4) 07/06/16 06:30 Baso # 0.0 K/mm3 (0.0-0.1) 07/06/16 06:30 Add Manual Diff Complete 07/03/16 04:42 Total Counted 100 07/03/16 04:42 Seg Neutrophils % 72.4 % (40.0-70.0) H 07/06/16 06:30 Seg Neuts % (Manual) 94.0 % (40.0-70.0) H 07/03/16 04:42 Band Neutrophils % 0 % 07/03/16 04:42 Lymphocytes % (Manual) 4.0 % (13.4-35.0) L 07/03/16 04:42 Reactive Lymphs % (Man) 0 % 07/03/16 04:42 Monocytes % (Manual) 2.0 % (0.0-7.3) 07/03/16 04:42 Eosinophils % (Manual) 0 % (0.0-4.3) 07/03/16 04:42 Basophils % (Manual) 0 % (0.0-1.8) 07/03/16 04:42 Metamyelocytes % 0 % 07/03/16 04:42 Myelocytes % 0 % 07/03/16 04:42 Promyelocytes % 0 % 07/03/16 04:42 Blast Cells % 0 % 07/03/16 04:42 Nucleated RBC % Not Reportable 07/03/16 04:42 Seg Neutrophils # 3.3 K/mm3 (1.8-7.7) 07/06/16 06:30 Seg Neutrophils # Man 7.1 K/mm3 (1.8-7.7) 07/03/16 04:42 Band Neutrophils # 0.0 K/mm3 07/03/16 04:42 Lymphocytes # (Manual) 0.3 K/mm3 (1.2-5.4) L 07/03/16 04:42 Abs React Lymphs (Man) 0.0 K/mm3 07/03/16 04:42 Monocytes # (Manual) 0.2 K/mm3 (0.0-0.8) 07/03/16 04:42 Eosinophils # (Manual) 0.0 K/mm3 (0.0-0.4) 07/03/16 04:42 Basophils # (Manual) 0.0 K/mm3 (0.0-0.1) 07/03/16 04:42 Metamyelocytes # 0.0 K/mm3 07/03/16 04:42 Myelocytes # 0.0 K/mm3 07/03/16 04:42 Promyelocytes # 0.0 K/mm3 07/03/16 04:42 Blast Cells # 0.0 K/mm3 07/03/16 04:42 WBC Morphology Not Reportable 07/03/16 04:42 Hypersegmented Neuts Not Reportable 07/03/16 04:42 Hyposegmented Neuts Not Reportable 07/03/16 04:42 Hypogranular Neuts Not Reportable 07/03/16 04:42 Smudge Cells Not Reportable 07/03/16 04:42 Toxic Granulation Not Reportable 07/03/16 04:42 Toxic Vacuolation Not Reportable 07/03/16 04:42 Dohle Bodies Not Reportable 07/03/16 04:42 Pelger-Huet Anomaly Not Reportable 07/03/16 04:42 Paul Rods Not Reportable 07/03/16 04:42 Platelet Estimate Appears decreased 07/03/16 04:42 Clumped Platelets Not Reportable 07/03/16 04:42 Plt Clumps, EDTA Not Reportable 07/03/16 04:42 Large Platelets Not Reportable 07/03/16 04:42 Giant Platelets Not Reportable 07/03/16 04:42 Platelet Satelliting Not Reportable 07/03/16 04:42 Plt Morphology Comment Not Reportable 07/03/16 04:42 RBC Morphology Normal 07/03/16 04:42 Dimorphic RBCs Not Reportable 07/03/16 04:42 Polychromasia Not Reportable 07/03/16 04:42 Hypochromasia Not Reportable 07/03/16 04:42 Poikilocytosis Not Reportable 07/03/16 04:42 Anisocytosis Not Reportable 07/03/16 04:42 Microcytosis Not Reportable 07/03/16 04:42 Macrocytosis Not Reportable 07/03/16 04:42 Spherocytes Not Reportable 07/03/16 04:42 Pappenheimer Bodies Not Reportable 07/03/16 04:42 Sickle Cells Not Reportable 07/03/16 04:42 Target Cells Not Reportable 07/03/16 04:42 Tear Drop Cells Not Reportable 07/03/16 04:42 Ovalocytes Not Reportable 07/03/16 04:42 Helmet Cells Not Reportable 07/03/16 04:42 [place]cle[place] Bodies Not Reportable 07/03/16 04:42 [place] Rings Not Reportable 07/03/16 04:42 [place] Cells Not Reportable 07/03/16 04:42 Bite Cells Not Reportable 07/03/16 04:42 Crenated Cell Not Reportable 07/03/16 04:42 Elliptocytes Not Reportable 07/03/16 04:42 Acanthocytes (Spur) Not Reportable 07/03/16 04:42 Rouleaux Not Reportable 07/03/16 04:42 Hemoglobin C Crystals Not Reportable 07/03/16 04:42 Schistocytes Not Reportable 07/03/16 04:42 Malaria parasites Not Reportable 07/03/16 04:42 Low Bodies Not Reportable 07/03/16 04:42 Hem Pathologist Commnt No 07/03/16 04:42 PT 14.1 Sec. (12.2-14.9) 07/03/16 04:42 INR 1.10 (0.87-1.13) 07/03/16 04:42 POC ABG pH 7.298 (7.35-7.45) L 07/05/16 05:23 POC ABG pCO2 27.2 (35-45) L 07/05/16 05:23 POC ABG pO2 130 (80-105) H 07/05/16 05:23 POC ABG HCO3 13.3 07/05/16 05:23 POC ABG Total CO2 14 07/05/16 05:23 POC ABG O2 Sat 99 07/05/16 05:23 POC ABG Base Excess -13 07/05/16 05:23 VBG pH 7.384 (7.320-7.420) 07/03/16 04:42 FiO2 30 % 07/05/16 05:23 Sodium 140 mmol/L (137-145) 07/07/16 04:41 Potassium 4.0 mmol/L (3.6-5.0) D 07/07/16 04:41 Chloride 105.9 mmol/L (98-107) 07/07/16 04:41 Carbon Dioxide 18 mmol/L (22-30) L 07/07/16 04:41 Anion Gap 20 mmol/L 07/07/16 04:41 BUN 10 mg/dL (7-17) 07/07/16 04:41 Creatinine 0.4 mg/dL (0.7-1.2) L 07/07/16 04:41 Estimated GFR > 60 ml/min 07/07/16 04:41 BUN/Creatinine Ratio 25.00 % 07/07/16 04:41 Glucose 109 mg/dL (65-100) H 07/07/16 04:41 POC Glucose 125 (70-105) H 07/07/16 05:35 Lactic Acid 0.9 mmol/L (0.7-2.0) 07/03/16 14:01 Calcium 5.8 mg/dL (8.4-10.2) L* 07/07/16 04:41 Phosphorus 3.1 mg/dL (2.5-4.5) 07/04/16 15:51 Total Bilirubin 1.0 mg/dL (0.1-1.2) 07/05/16 04:34 AST 149 units/L (5-40) H 07/05/16 04:34 ALT 52 units/L (7-56) 07/05/16 04:34 Alkaline Phosphatase 68 units/L (35-129) 07/05/16 04:34 Ammonia 43.0 umol/L (25-60) 07/03/16 14:01 Total Protein 5.3 g/dL (6.3-8.2) L D 07/05/16 04:34 Albumin 2.5 g/dL (3.9-5) L 07/05/16 04:34 Albumin/Globulin Ratio 0.9 % 07/05/16 04:34 TSH 1.450 mlU/mL (0.270-4.200) 07/03/16 06:16 Urine Color [place] (Yellow) 07/03/16 04:31 Urine Turbidity Clear (Clear) 07/03/16 04:31 Urine pH 5.0 (5.0-7.0) 07/03/16 04:31 Ur Specific [place] 1.024 (1.003-1.030) 07/03/16 04:31 Urine Protein >500 mg/dL (Negative) 07/03/16 04:31 Urine Glucose (UA) Neg mg/dL (Negative) 07/03/16 04:31 Urine Ketones 20 mg/dL (Negative) 07/03/16 04:31 Urine Blood Mod (Negative) 07/03/16 04:31 Urine Nitrite Neg (Negative) 07/03/16 04:31 Urine Bilirubin Neg (Negative) 07/03/16 04:31 Urine Urobilinogen < 2.0 mg/dL (<2.0) 07/03/16 04:31 Ur Leukocyte Esterase Neg (Negative) 07/03/16 04:31 Urine WBC (Auto) 3.0 /HPF (0.0-6.0) 07/03/16 04:31 Urine RBC (Auto) 4.0 /HPF (0.0-6.0) 07/03/16 04:31 U Epithel Cells (Auto) < 1.0 /HPF (0-13.0) 07/03/16 04:31 Urine Bacteria (Auto) 1+ /HPF (Negative) 07/03/16 04:31 Urine Mucus 1+ /HPF 07/03/16 04:31 Urine HCG, Qual Negative (Negative) 07/03/16 04:43 Salicylates < 0.3 mg/dL (2.8-20.0) L 07/03/16 06:16 Urine Opiates Screen Presumptive negative 07/03/16 07:00 Urine Methadone Screen Presumptive negative 07/03/16 07:00 Acetaminophen < 15.0 ug/mL (10.0-30.0) 07/03/16 06:16 Ur Barbiturates Screen Presumptive negative 07/03/16 07:00 Ur Phencyclidine Scrn Presumptive negative 07/03/16 07:00 Ur Amphetamines Screen Presumptive negative 07/03/16 07:00 U Benzodiazepines Scrn Presumptive negative 07/03/16 07:00 Urine Cocaine Screen Presumptive negative 07/03/16 07:00 U Marijuana (THC) Screen Presumptive negative 07/03/16 07:00 Drugs of Abuse Note Disclamer 07/03/16 07:00 Plasma/Serum Alcohol < 0.01 gm% (0-0.07) 07/03/16 06:16
[2016-07-07] MEDS: LOPRESSOR FEEDTUBE SCH ×2 (11:27→21:42)
[2016-07-07 12:09] LABS: Blood Urea Nitrogen 10 mg/dL (7-17); Carbon Dioxide 16 mmol/L (22-30); Glucose 117 mg/dL (65-100)
[2016-07-07 12:10] LABS: Anion Gap 21 mmol/L; Chloride 107.1 mmol/L (98-107); Potassium 3.7 mmol/L (3.6-5.0); Sodium 140 mmol/L (137-145)
[2016-07-07 12:11] LABS: Calcium 5.7 mg/dL (8.4-10.2)
--- NOTE | 2016-07-07 13:50 | Progress Note ---
Assessment and Plan 45 y/o female with altered mental state, thrombocytopenia, renal failure and cardiac abnormalities admitted to the ICU with acute respiratory failure requiring mechanical ventilation and concern for possible seizure like activity. 1. Continue CIWA scoring, once low enough, transfer to floor 2. IMS correcting electrolyte abnormalities 3. Wean FiO2 to off as tolerated. 4. Follow up any new neuro recs 5. Will continue ICU monitoring, pending what CIWA score is. Subjective Date of service: 07/07/16 Interval history: No acute events. CIWA score is elevated at 23. Patient kept in ICU based on this. No fever. Objective Vital Signs - 12hr 07/07/16 07/07/16 07/07/16 02:00 02:30 03:01 Temperature Pulse Rate 132 H 130 H 134 H Pulse Rate [ Apical] Pulse Rate [ From Monitor] Respiratory 27 H 27 H 29 H Rate Blood Pressure 178/108 162/109 137/116 O2 Sat by Pulse 100 100 100 Oximetry 07/07/16 07/07/16 07/07/16 03:31 03:50 03:55 Temperature 98.1 F Pulse Rate 123 H 124 H Pulse Rate [ Apical] Pulse Rate [ From Monitor] Respiratory 26 H Rate Blood Pressure 185/121 185/121 O2 Sat by Pulse 100 Oximetry 07/07/16 07/07/16 07/07/16 04:00 04:05 04:31 Temperature 98.7 F Pulse Rate 136 H 160 H Pulse Rate [ 120 H Apical] Pulse Rate [ From Monitor] Respiratory 33 H 34 H 19 Rate Blood Pressure 164/106 164/106 O2 Sat by Pulse 100 100 100 Oximetry 07/07/16 07/07/16 07/07/16 05:00 05:30 06:00 Temperature Pulse Rate 140 H 134 H 128 H Pulse Rate [ Apical] Pulse Rate [ From Monitor] Respiratory 33 H 33 H 30 H Rate Blood Pressure 172/94 172/104 172/101 O2 Sat by Pulse 100 100 100 Oximetry 07/07/16 07/07/16 07/07/16 06:31 07:01 07:28 Temperature Pulse Rate 133 H 129 H 120 H Pulse Rate [ Apical] Pulse Rate [ From Monitor] Respiratory 35 H 30 H Rate Blood Pressure 187/116 188/106 184/108 O2 Sat by Pulse 100 100 Oximetry 07/07/16 07/07/16 07/07/16 07:31 07:47 08:00 Temperature 99.1 F Pulse Rate 130 H Pulse Rate [ 138 H Apical] Pulse Rate [ From Monitor] Respiratory 38 H 32 H Rate Blood Pressure 187/116 O2 Sat by Pulse 100 100 100 Oximetry 07/07/16 07/07/16 07/07/16 08:01 08:30 09:00 Temperature Pulse Rate 131 H 133 H 127 H Pulse Rate [ Apical] Pulse Rate [ From Monitor] Respiratory 40 H 33 H 24 Rate Blood Pressure 166/99 159/93 156/102 O2 Sat by Pulse 100 100 100 Oximetry 07/07/16 07/07/16 07/07/16 09:31 10:00 10:30 Temperature Pulse Rate 140 H 120 H 117 H Pulse Rate [ Apical] Pulse Rate [ From Monitor] Respiratory 31 H 31 H 31 H Rate Blood Pressure 179/113 181/115 201/111 O2 Sat by Pulse 99 100 100 Oximetry 07/07/16 07/07/16 07/07/16 11:00 11:25 11:27 Temperature Pulse Rate 118 H 117 H 122 H Pulse Rate [ Apical] Pulse Rate [ From Monitor] Respiratory 33 H Rate Blood Pressure 203/118 203/118 203/118 O2 Sat by Pulse 100 Oximetry 07/07/16 07/07/16 07/07/16 11:30 11:41 12:00 Temperature 99.3 F Pulse Rate 128 H 106 H Pulse Rate [ 123 H Apical] Pulse Rate [ 121 H From Monitor] Respiratory 34 H 31 H 31 H Rate Blood Pressure 167/104 171/103 O2 Sat by Pulse 100 100 100 Oximetry Constitutional: no acute distress, alert ENT: oropharynx dry Neck: supple Ascultation: Bilateral: clear Percussion: Bilateral: not dull Cardiovascular: regular rate and rhythm (tachycardia) Gastrointestinal: normoactive bowel sounds, soft, non-distended Integumentary: normal Extremities: no cyanosis Neurologic: normal mental status, non-focal exam Psychiatric: mood appropriate CBC and BMP: 07/07/16 04:41 07/07/16 11:16 ABG, PT/INR, D-dimer: ABG POC ABG pH 7.298 (7.35-7.45) L 07/05/16 05:23 POC ABG pCO2 27.2 (35-45) L 07/05/16 05:23 POC ABG pO2 130 (80-105) H 07/05/16 05:23 POC ABG HCO3 13.3 07/05/16 05:23 POC ABG Total CO2 14 07/05/16 05:23 POC ABG O2 Sat 99 07/05/16 05:23 PT/INR, D-dimer PT 14.1 Sec. (12.2-14.9) 07/03/16 04:42 INR 1.10 (0.87-1.13) 07/03/16 04:42 Abnormal lab findings: Abnormal Labs 07/04/16 07/04/16 07/04/16 04:16 05:18 05:18 RBC 2.64 L Hgb 8.6 L Hct 25.2 L D MCV MCH 33 H RDW Plt Count 50 L [place] % (Auto) Lymph # 1.0 L Seg Neutrophils % 78.8 H POC ABG pH POC ABG pCO2 31.6 L POC ABG pO2 157 H Potassium Chloride Carbon Dioxide 16 L Creatinine Glucose POC Glucose Calcium 4.5 L* D AST Total Protein Albumin 07/04/16 07/04/16 07/05/16 15:51 18:00 04:34 RBC 2.47 L Hgb 8.1 L Hct 24.1 L MCV MCH 33 H RDW Plt Count 99 L [place] % (Auto) Lymph # Seg Neutrophils % POC ABG pH POC ABG pCO2 POC ABG pO2 Potassium Chloride Carbon Dioxide Creatinine Glucose POC Glucose 59 L Calcium 4.8 L* AST Total Protein Albumin 07/05/16 07/05/16 07/05/16 04:34 05:23 17:47 RBC Hgb Hct MCV MCH RDW Plt Count [place] % (Auto) Lymph # Seg Neutrophils % POC ABG pH 7.298 L POC ABG pCO2 27.2 L POC ABG pO2 130 H Potassium 3.2 L Chloride Carbon Dioxide 15 L Creatinine Glucose POC Glucose 138 H Calcium 5.7 L* D AST 149 H Total Protein 5.3 L D Albumin 2.5 L 07/06/16 07/06/16 07/06/16 01:39 06:30 12:16 RBC 2.65 L Hgb 8.7 L Hct 25.7 L MCV MCH 33 H RDW Plt Count 77 L [place] % (Auto) 11.3 H Lymph # 0.7 L Seg Neutrophils % 72.4 H POC ABG pH POC ABG pCO2 POC ABG pO2 Potassium Chloride Carbon Dioxide Creatinine Glucose POC Glucose 134 H 127 H Calcium AST Total Protein Albumin 07/06/16 07/06/16 07/07/16 17:35 23:50 04:41 RBC 2.95 L Hgb 9.6 L Hct 28.9 L MCV 98 H MCH 33 H RDW 15.5 H Plt Count 100 L [place] % (Auto) Lymph # Seg Neutrophils % POC ABG pH POC ABG pCO2 POC ABG pO2 Potassium Chloride Carbon Dioxide Creatinine Glucose POC Glucose 132 H 126 H Calcium AST Total Protein Albumin 07/07/16 07/07/16 07/07/16 04:41 05:35 11:16 RBC Hgb Hct MCV MCH RDW Plt Count [place] % (Auto) Lymph # Seg Neutrophils % POC ABG pH POC ABG pCO2 POC ABG pO2 Potassium Chloride 107.1 H Carbon Dioxide 18 L 16 L Creatinine 0.4 L 0.4 L Glucose 109 H 117 H POC Glucose 125 H Calcium 5.8 L* 5.7 L* AST Total Protein Albumin
[2016-07-07] MEDS ORDERED: S2 RACEPINEPHRINE 2.25% IH ONE (16:54)
[2016-07-07] MEDS ORDERED: NACL 0.9% NEBU ONE (17:02)
[2016-07-07] MEDS: HALDOL IV PRN (18:43)
[2016-07-08] MEDS: ATIVAN IV PRN ×3 (00:45→14:03)
[2016-07-08] MEDS: APRESOLINE IV PRN ×3 (06:10→21:31)
[2016-07-08] MEDS ORDERED: LOPRESSOR IV ONE (06:29)
[2016-07-08 07:38] LABS: Hematocrit 23.6 % (30.3-42.9); Hemoglobin 7.9 gm/dl (10.1-14.3); Mean Corpuscular HGB Conc 33 % (30-34); Mean Corpuscular Hemoglobin 32 pg (28-32); Mean Corpuscular Volume 96 fl (79-97); Red Blood Count 2.46 M/mm3 (3.65-5.03); Red Cell Distribution Width 14.3 % (13.2-15.2); White Blood Count 5.9 K/mm3 (4.5-11.0)
[2016-07-08 07:40] LABS: Platelet Count 97 K/mm3 (140-440)
[2016-07-08] MEDS ORDERED: MAGNESIUM SULFATE 4GM/100ML 4 GM/100 ML BAG IV ONE ×2 (08:28→15:00)
--- NOTE | 2016-07-08 09:04 | Event Note ---
Date: 07/08/16 MRI Brain w/o Kvng reviewed-no acute lesions but confirmed CTH finding of global atrophy jelena evident in cerebellum. Clinical course over weekend also reviewed- clinical syn consistent with alcohol withdrawal/DTs. Therefore, Chronic alcoholism likely the etiology for MRI Brain findings. No documented recurrent seizures. 45 y/o female w/o known medical history brought in 07/03 as found down unclear prior events subsequently became extremely agitated and suffered ? seizure but limited details. She was febrile on admit but WBC normal and no fever since. Pt also found to have anemia/thrombocytopenia and renal failure which has improved w/ IVF although concern raised for TTP. Ca 4.5. CTH nonacute generalized atrophy/volume loss jelena in cerebellum. These findings are typically assoc w/ toxic medication (e.g. AEDs) or illicit drug use but UDS was negative. On exam pt eyes open, follows all commands, and localizes pain throughout while on Propofol gtt. TSH/NH4 neg. Plan and Recommendation: 1. Telemetry bed w/ Q4 hour neuro checks & Sz precautions 2. Labs: Serum/Urine Tox, UA/UCx, Electrolytes especially Na, Ca, Mg, and Glucose and correct as necessary 3. Cont Infectious work up/medical management for UTI, PNA, cellulitis, bacteremia, etc. 4. Avoid hyponatremia, hypo/hyper-calcemia, hypo/hyperglycemia, acidosis, hypoxia/hypoxemia, hypercarbia/hypercapnia 5. Avoid institution of any psychoactive medications (e.g. antihistamines, anticholinergics, BZD, hypnotics, opiates) as able unless low doses of low potency antipsychotic needed for behavioral issues complicating medical care 6. AED therapy: Defer @ this time but will need to re-eval if recurrent seizure. 7. Avoid meds that can lower sz threshold e.g. Tramadol, fluroquinolones, carbapenems 8. Supplement Thiamine, Folate and B12 9. Can re-eval as needed
--- NOTE | 2016-07-08 09:12 | Progress Note ---
Assessment and Plan AMS suspected alcohol withdrawal Thombocytopenia Hypomagnesemia. Been replaced Rec Mg replacement Gentle fluids CIWA protocol,sedation Monitor for seizures,respiratory deterioration arrhythmias CCT 31 min Subjective Date of service: 07/08/16 Interval history: n/a. Alert but disoriented Objective Vital Signs - 12hr 07/07/16 07/07/16 07/07/16 21:30 21:42 21:43 Temperature Pulse Rate 129 H 130 H 130 H Pulse Rate [ Apical] Pulse Rate [ From Monitor] Respiratory 30 H Rate Blood Pressure 192/102 182/102 182/102 O2 Sat by Pulse Oximetry 07/07/16 07/07/16 07/07/16 22:00 22:01 22:30 Temperature Pulse Rate 110 H 112 H 110 H Pulse Rate [ 110 H Apical] Pulse Rate [ 110 H From Monitor] Respiratory 30 H 31 H 34 H Rate Blood Pressure 161/114 178/112 O2 Sat by Pulse 100 100 99 Oximetry 07/07/16 07/07/16 07/07/16 22:47 23:00 23:30 Temperature Pulse Rate 110 H 110 H 113 H Pulse Rate [ Apical] Pulse Rate [ From Monitor] Respiratory 30 H 35 H 28 H Rate Blood Pressure 178/112 181/100 190/113 O2 Sat by Pulse 100 97 98 Oximetry 07/08/16 07/08/16 07/08/16 00:00 00:30 01:01 Temperature Pulse Rate 112 H 118 H 120 H Pulse Rate [ Apical] Pulse Rate [ From Monitor] Respiratory 33 H 27 H 35 H Rate Blood Pressure 187/110 180/109 180/98 O2 Sat by Pulse 97 98 99 Oximetry 07/08/16 07/08/16 07/08/16 01:30 02:00 02:30 Temperature Pulse Rate 112 H 113 H 117 H Pulse Rate [ Apical] Pulse Rate [ From Monitor] Respiratory 30 H 30 H 27 H Rate Blood Pressure 182/110 182/114 188/108 O2 Sat by Pulse 100 99 100 Oximetry 07/08/16 07/08/16 07/08/16 03:00 03:30 03:36 Temperature 97.9 F Pulse Rate 118 H 116 H Pulse Rate [ Apical] Pulse Rate [ From Monitor] Respiratory 24 25 H Rate Blood Pressure 187/104 202/105 O2 Sat by Pulse 100 100 Oximetry 07/08/16 07/08/16 07/08/16 04:00 04:01 04:30 Temperature Pulse Rate 120 H 122 H Pulse Rate [ 115 H Apical] Pulse Rate [ 112 H From Monitor] Respiratory 26 H 27 H 28 H Rate Blood Pressure 192/105 199/108 O2 Sat by Pulse 100 100 100 Oximetry 07/08/16 07/08/16 07/08/16 05:01 05:31 06:01 Temperature Pulse Rate 123 H 123 H 130 H Pulse Rate [ Apical] Pulse Rate [ From Monitor] Respiratory 28 H 31 H 32 H Rate Blood Pressure 196/110 192/112 213/129 O2 Sat by Pulse 100 100 100 Oximetry 07/08/16 07/08/16 07/08/16 06:10 06:30 08:00 Temperature 97.6 F Pulse Rate 120 H 115 H Pulse Rate [ Apical] Pulse Rate [ From Monitor] Respiratory 26 H Rate Blood Pressure 180/100 182/69 O2 Sat by Pulse 100 Oximetry Constitutional: alert ENT: oropharynx dry Neck: supple Ascultation: Bilateral: clear (Soem transmitted rhonchi) Percussion: Bilateral: not dull Cardiovascular: regular rate and rhythm (tachycardia) Gastrointestinal: normoactive bowel sounds, soft, non-distended Integumentary: normal Extremities: no cyanosis Neurologic: non-focal exam, CN II-XII normal, other (Notremor.Alert but not oriented) Psychiatric: mood appropriate CBC and BMP: 07/08/16 07:17 07/07/16 11:16 ABG, PT/INR, D-dimer: ABG POC ABG pH 7.298 (7.35-7.45) L 07/05/16 05:23 POC ABG pCO2 27.2 (35-45) L 07/05/16 05:23 POC ABG pO2 130 (80-105) H 07/05/16 05:23 POC ABG HCO3 13.3 07/05/16 05:23 POC ABG Total CO2 14 07/05/16 05:23 POC ABG O2 Sat 99 07/05/16 05:23 PT/INR, D-dimer PT 14.1 Sec. (12.2-14.9) 07/03/16 04:42 INR 1.10 (0.87-1.13) 07/03/16 04:42 Abnormal lab findings: Abnormal Labs 07/04/16 07/04/16 07/04/16 04:16 05:18 05:18 RBC 2.64 L Hgb 8.6 L Hct 25.2 L D MCV MCH 33 H RDW Plt Count 50 L [place] % (Auto) Lymph # 1.0 L Seg Neutrophils % 78.8 H POC ABG pH POC ABG pCO2 31.6 L POC ABG pO2 157 H Potassium Chloride Carbon Dioxide 16 L Creatinine Glucose POC Glucose Calcium 4.5 L* D Magnesium AST Total Protein Albumin 07/04/16 07/04/16 07/05/16 15:51 18:00 04:34 RBC 2.47 L Hgb 8.1 L Hct 24.1 L MCV MCH 33 H RDW Plt Count 99 L [place] % (Auto) Lymph # Seg Neutrophils % POC ABG pH POC ABG pCO2 POC ABG pO2 Potassium Chloride Carbon Dioxide Creatinine Glucose POC Glucose 59 L Calcium 4.8 L* Magnesium AST Total Protein Albumin 07/05/16 07/05/16 07/05/16 04:34 05:23 17:47 RBC Hgb Hct MCV MCH RDW Plt Count [place] % (Auto) Lymph # Seg Neutrophils % POC ABG pH 7.298 L POC ABG pCO2 27.2 L POC ABG pO2 130 H Potassium 3.2 L Chloride Carbon Dioxide 15 L Creatinine Glucose POC Glucose 138 H Calcium 5.7 L* D Magnesium AST 149 H Total Protein 5.3 L D Albumin 2.5 L 07/06/16 07/06/16 07/06/16 01:39 06:30 12:16 RBC 2.65 L Hgb 8.7 L Hct 25.7 L MCV MCH 33 H RDW Plt Count 77 L [place] % (Auto) 11.3 H Lymph # 0.7 L Seg Neutrophils % 72.4 H POC ABG pH POC ABG pCO2 POC ABG pO2 Potassium Chloride Carbon Dioxide Creatinine Glucose POC Glucose 134 H 127 H Calcium Magnesium AST Total Protein Albumin 07/06/16 07/06/16 07/07/16 17:35 23:50 04:41 RBC 2.95 L Hgb 9.6 L Hct 28.9 L MCV 98 H MCH 33 H RDW 15.5 H Plt Count 100 L [place] % (Auto) Lymph # Seg Neutrophils % POC ABG pH POC ABG pCO2 POC ABG pO2 Potassium Chloride Carbon Dioxide Creatinine Glucose POC Glucose 132 H 126 H Calcium Magnesium AST Total Protein Albumin 07/07/16 07/07/1607/07/17 04:41 05:35 11:16 RBC Hgb Hct MCV MCH RDW Plt Count [place] % (Auto) Lymph # Seg Neutrophils % POC ABG pH POC ABG pCO2 POC ABG pO2 Potassium Chloride 107.1 H Carbon Dioxide 18 L 16 L Creatinine 0.4 L 0.4 L Glucose 109 H 117 H POC Glucose 125 H Calcium 5.8 L* 5.7 L* Magnesium AST Total Protein Albumin 07/07/16 07/07/16 07/08/16 11:56 17:12 07:17 RBC 2.46 L Hgb 7.9 L Hct 23.6 L MCV MCH RDW Plt Count 97 L [place] % (Auto) Lymph # Seg Neutrophils % POC ABG pH POC ABG pCO2 POC ABG pO2 Potassium Chloride Carbon Dioxide Creatinine Glucose POC Glucose 116 H 131 H Calcium Magnesium AST Total Protein Albumin 07/08/16 07:17 RBC Hgb Hct MCV MCH RDW Plt Count [place] % (Auto) Lymph # Seg Neutrophils % POC ABG pH POC ABG pCO2 POC ABG pO2 Potassium Chloride Carbon Dioxide Creatinine Glucose POC Glucose Calcium Magnesium 0.5 L* AST Total Protein Albumin
[2016-07-08] MEDS: AUGMENTIN 875 MG PO SCH ×2 (09:15→21:31)
[2016-07-08] MEDS: LOPRESSOR FEEDTUBE SCH ×3 (09:15→21:31)
[2016-07-08] MEDS: VITAMIN B-1 PO SCH (09:15)
[2016-07-08] MEDS: PEPCID PO SCH ×2 (09:16→21:31)
[2016-07-08] MEDS: FOLVITE PO SCH (09:16)
[2016-07-08 11:09] LABS: Anion Gap 16 mmol/L; Blood Urea Nitrogen 8 mg/dL (7-17); Calcium 6.3 mg/dL (8.4-10.2); Carbon Dioxide 21 mmol/L (22-30); Chloride 104.5 mmol/L (98-107); Glucose 105 mg/dL (65-100); Potassium 3.5 mmol/L (3.6-5.0); Sodium 138 mmol/L (137-145)
--- NOTE | 2016-07-08 13:02 | Progress Note ---
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 She was brought to [facility] emergency department, had a seizure episode and was intubated for airway protection. -Status epilepticus, resolved -Acute respiratory failure, resolved extubated 07/05/2016 -Acute metabolic encephalopathy -Drop hematocrit most likely dilutional -Hypocalcemia: replace and recheck -Thrombocytopenia: [id number] ordered for TTP, peripheral blood smear shows decreased platelets -DVT prophylaxis: SCDs only due to the severe thrombocytopenia New issue: Patient is being treated as alcohol withdrawal, delirium tremens seizure. Still in restraints, still confused. CIWA score still high Ordered a.m. labs Patient history of alcohol abuse. Continue CIWA protocol Ordered Lopressor via NG tube Gave IV calcium gluconate Reordered restraints Severe hypomagnesemia: Replace and recheck in a.m. recheck magnesium level History Interval history: Patient seen and examined. Follow up on seizures. No recurrent seizures she still confused in restraints Overnight uneventful. No cp, sob, n/v or severe headaches. Imaging, old records, testing, labs, nursing notes reviewed. Plan discussed with patient. Hospitalist Physical - Physical exam Narrative exam: GEN: WDWN, NAD, AWAKE, ALERT, ORIENTATED x 1 CVS: Regular tachycardia NORMAL S1S2 LUNGS/CHEST: NORMAL CHEST EXPANSION B, GOOD AIR ENTRY B ABD: SOFT NTND, GBS, NO REBOUND OR GUARDING MSK: FROM X 4 EXTREMITIES NEURO: CN 2-12 GROSSLY INTACT, follow some commands PSY: Anxious - Constitutional Vitals: Temp Pulse Resp BP Pulse Ox 97.6 F 117 H 28 H 190/117 100 07/08/16 08:00 07/08/16 09:16 07/08/16 09:00 07/08/16 09:16 07/08/16 09:37 General appearance: Present: no acute distress, well-nourished Results - Labs CBC & Chem 7: 07/08/16 07:17 07/08/16 10:31 Labs: Laboratory Last Values WBC 5.9 K/mm3 (4.5-11.0) 07/08/16 07:17 RBC 2.46 M/mm3 (3.65-5.03) L 07/08/16 07:17 Hgb 7.9 gm/dl (10.1-14.3) L 07/08/16 07:17 Hct 23.6 % (30.3-42.9) L 07/08/16 07:17 MCV 96 fl (79-97) 07/08/16 07:17 MCH 32 pg (28-32) 07/08/16 07:17 MCHC 33 % (30-34) 07/08/16 07:17 RDW 14.3 % (13.2-15.2) 07/08/16 07:17 Plt Count 97 K/mm3 (140-440) L 07/08/16 07:17 Lymph % (Auto) 15.6 % (13.4-35.0) 07/06/16 06:30 [place] % (Auto) 11.3 % (0.0-7.3) H 07/06/16 06:30 [place] % (Auto) 0.2 % (0.0-4.3) 07/06/16 06:30 Baso % (Auto) 0.5 % (0.0-1.8) 07/06/16 06:30 Lymph # 0.7 K/mm3 (1.2-5.4) L 07/06/16 06:30 [place] # 0.5 K/mm3 (0.0-0.8) 07/06/16 06:30 Eos # 0.0 K/mm3 (0.0-0.4) 07/06/16 06:30 Baso # 0.0 K/mm3 (0.0-0.1) 07/06/16 06:30 Add Manual Diff Complete 07/03/16 04:42 Total Counted 100 07/03/16 04:42 Seg Neutrophils % 72.4 % (40.0-70.0) H 07/06/16 06:30 Seg Neuts % (Manual) 94.0 % (40.0-70.0) H 07/03/16 04:42 Band Neutrophils % 0 % 07/03/16 04:42 Lymphocytes % (Manual) 4.0 % (13.4-35.0) L 07/03/16 04:42 Reactive Lymphs % (Man) 0 % 07/03/16 04:42 Monocytes % (Manual) 2.0 % (0.0-7.3) 07/03/16 04:42 Eosinophils % (Manual) 0 % (0.0-4.3) 07/03/16 04:42 Basophils % (Manual) 0 % (0.0-1.8) 07/03/16 04:42 Metamyelocytes % 0 % 07/03/16 04:42 Myelocytes % 0 % 07/03/16 04:42 Promyelocytes % 0 % 07/03/16 04:42 Blast Cells % 0 % 07/03/16 04:42 Nucleated RBC % Not Reportable 07/03/16 04:42 Seg Neutrophils # 3.3 K/mm3 (1.8-7.7) 07/06/16 06:30 Seg Neutrophils # Man 7.1 K/mm3 (1.8-7.7) 07/03/16 04:42 Band Neutrophils # 0.0 K/mm3 07/03/16 04:42 Lymphocytes # (Manual) 0.3 K/mm3 (1.2-5.4) L 07/03/16 04:42 Abs React Lymphs (Man) 0.0 K/mm3 07/03/16 04:42 Monocytes # (Manual) 0.2 K/mm3 (0.0-0.8) 07/03/16 04:42 Eosinophils # (Manual) 0.0 K/mm3 (0.0-0.4) 07/03/16 04:42 Basophils # (Manual) 0.0 K/mm3 (0.0-0.1) 07/03/16 04:42 Metamyelocytes # 0.0 K/mm3 07/03/16 04:42 Myelocytes # 0.0 K/mm3 07/03/16 04:42 Promyelocytes # 0.0 K/mm3 07/03/16 04:42 Blast Cells # 0.0 K/mm3 07/03/16 04:42 WBC Morphology Not Reportable 07/03/16 04:42 Hypersegmented Neuts Not Reportable 07/03/16 04:42 Hyposegmented Neuts Not Reportable 07/03/16 04:42 Hypogranular Neuts Not Reportable 07/03/16 04:42 Smudge Cells Not Reportable 07/03/16 04:42 Toxic Granulation Not Reportable 07/03/16 04:42 Toxic Vacuolation Not Reportable 07/03/16 04:42 Dohle Bodies Not Reportable 07/03/16 04:42 Pelger-Huet Anomaly Not Reportable 07/03/16 04:42 Paul Rods Not Reportable 07/03/16 04:42 Platelet Estimate Appears decreased 07/03/16 04:42 Clumped Platelets Not Reportable 07/03/16 04:42 Plt Clumps, EDTA Not Reportable 07/03/16 04:42 Large Platelets Not Reportable 07/03/16 04:42 Giant Platelets Not Reportable 07/03/16 04:42 Platelet Satelliting Not Reportable 07/03/16 04:42 Plt Morphology Comment Not Reportable 07/03/16 04:42 RBC Morphology Normal 07/03/16 04:42 Dimorphic RBCs Not Reportable 07/03/16 04:42 Polychromasia Not Reportable 07/03/16 04:42 Hypochromasia Not Reportable 07/03/16 04:42 Poikilocytosis Not Reportable 07/03/16 04:42 Anisocytosis Not Reportable 07/03/16 04:42 Microcytosis Not Reportable 07/03/16 04:42 Macrocytosis Not Reportable 07/03/16 04:42 Spherocytes Not Reportable 07/03/16 04:42 Pappenheimer Bodies Not Reportable 07/03/16 04:42 Sickle Cells Not Reportable 07/03/16 04:42 Target Cells Not Reportable 07/03/16 04:42 Tear Drop Cells Not Reportable 07/03/16 04:42 Ovalocytes Not Reportable 07/03/16 04:42 Helmet Cells Not Reportable 07/03/16 04:42 [place] Bodies Not Reportable 07/03/16 04:42 [place] Rings Not Reportable 07/03/16 04:42 [place] Cells Not Reportable 07/03/16 04:42 Bite Cells Not Reportable 07/03/16 04:42 Crenated Cell Not Reportable 07/03/16 04:42 Elliptocytes Not Reportable 07/03/16 04:42 Acanthocytes (Spur) Not Reportable 07/03/16 04:42 Rouleaux Not Reportable 07/03/16 04:42 Hemoglobin C Crystals Not Reportable 07/03/16 04:42 Schistocytes Not Reportable 07/03/16 04:42 Malaria parasites Not Reportable 07/03/16 04:42 Low Bodies Not Reportable 07/03/16 04:42 Hem Pathologist Commnt No 07/03/16 04:42 PT 14.1 Sec. (12.2-14.9) 07/03/16 04:42 INR 1.10 (0.87-1.13) 07/03/16 04:42 POC ABG pH 7.298 (7.35-7.45) L 07/05/16 05:23 POC ABG pCO2 27.2 (35-45) L 07/05/16 05:23 POC ABG pO2 130 (80-105) H 07/05/16 05:23 POC ABG HCO3 13.3 07/05/16 05:23 POC ABG Total CO2 14 07/05/16 05:23 POC ABG O2 Sat 99 07/05/16 05:23 POC ABG Base Excess -13 07/05/16 05:23 VBG pH 7.384 (7.320-7.420) 07/03/16 04:42 FiO2 30 % 07/05/16 05:23 Sodium 138 mmol/L (137-145) 07/08/16 10:31 Potassium 3.5 mmol/L (3.6-5.0) L 07/08/16 10:31 Chloride 104.5 mmol/L (98-107) 07/08/16 10:31 Carbon Dioxide 21 mmol/L (22-30) L 07/08/16 10:31 Anion Gap 16 mmol/L 07/08/16 10:31 BUN 8 mg/dL (7-17) 07/08/16 10:31 Creatinine 0.5 mg/dL (0.7-1.2) L 07/08/16 10:31 Estimated GFR > 60 ml/min 07/08/16 10:31 BUN/Creatinine Ratio 16.00 % 07/08/16 10:31 Glucose 105 mg/dL (65-100) H 07/08/16 10:31 POC Glucose 82 (70-105) 07/08/16 06:19 Lactic Acid 0.9 mmol/L (0.7-2.0) 07/03/16 14:01 Calcium 6.3 mg/dL (8.4-10.2) L 07/08/16 10:31 Phosphorus 3.1 mg/dL (2.5-4.5) 07/04/16 15:51 Magnesium 0.5 mg/dL (1.7-2.3) L* 07/08/16 07:17 Total Bilirubin 1.0 mg/dL (0.1-1.2) 07/05/16 04:34 AST 149 units/L (5-40) H 07/05/16 04:34 ALT 52 units/L (7-56) 07/05/16 04:34 Alkaline Phosphatase 68 units/L (35-129) 07/05/16 04:34 Ammonia 43.0 umol/L (25-60) 07/03/16 14:01 Total Protein 5.3 g/dL (6.3-8.2) L D 07/05/16 04:34 Albumin 2.5 g/dL (3.9-5) L 07/05/16 04:34 Albumin/Globulin Ratio 0.9 % 07/05/16 04:34 TSH 1.450 mlU/mL (0.270-4.200) 07/03/16 06:16 Urine Color [place] (Yellow) 07/03/16 04:31 Urine Turbidity Clear (Clear) 07/03/16 04:31 Urine pH 5.0 (5.0-7.0) 07/03/16 04:31 Ur Specific [place] 1.024 (1.003-1.030) 07/03/16 04:31 Urine Protein >500 mg/dL (Negative) 07/03/16 04:31 Urine Glucose (UA) Neg mg/dL (Negative) 07/03/16 04:31 Urine Ketones 20 mg/dL (Negative) 07/03/16 04:31 Urine Blood Mod (Negative) 07/03/16 04:31 Urine Nitrite Neg (Negative) 07/03/16 04:31 Urine Bilirubin Neg (Negative) 07/03/16 04:31 Urine Urobilinogen < 2.0 mg/dL (<2.0) 07/03/16 04:31 Ur Leukocyte Esterase Neg (Negative) 07/03/16 04:31 Urine WBC (Auto) 3.0 /HPF (0.0-6.0) 07/03/16 04:31 Urine RBC (Auto) 4.0 /HPF (0.0-6.0) 07/03/16 04:31 U Epithel Cells (Auto) < 1.0 /HPF (0-13.0) 07/03/16 04:31 Urine Bacteria (Auto) 1+ /HPF (Negative) 07/03/16 04:31 Urine Mucus 1+ /HPF 07/03/16 04:31 Urine HCG, Qual Negative (Negative) 07/03/16 04:43 Salicylates < 0.3 mg/dL (2.8-20.0) L 07/03/16 06:16 Urine Opiates Screen Presumptive negative 07/03/16 07:00 Urine Methadone Screen Presumptive negative 07/03/16 07:00 Acetaminophen < 15.0 ug/mL (10.0-30.0) 07/03/16 06:16 Ur Barbiturates Screen Presumptive negative 07/03/16 07:00 Ur Phencyclidine Scrn Presumptive negative 07/03/16 07:00 Ur Amphetamines Screen Presumptive negative 07/03/16 07:00 U Benzodiazepines Scrn Presumptive negative 07/03/16 07:00 Urine Cocaine Screen Presumptive negative 07/03/16 07:00 U Marijuana (THC) Screen Presumptive negative 07/03/16 07:00 Drugs of Abuse Note Disclamer 07/03/16 07:00 Plasma/Serum Alcohol < 0.01 gm% (0-0.07) 07/03/16 06:16
[2016-07-08] MEDS: HCTZ PO SCH (14:03)
[2016-07-08] MEDS ORDERED: NITRO-BID 2% TP ONE (23:49)
[2016-07-08] MEDS ORDERED: APRESOLINE IV ONE (23:59)
[2016-07-09] MEDS: LOPRESSOR FEEDTUBE SCH ×3 (05:11→22:00)
[2016-07-09] MEDS: APRESOLINE IV PRN ×3 (05:11→21:10)
[2016-07-09 05:40] LABS: Hematocrit 24.4 % (30.3-42.9); Hemoglobin 8.3 gm/dl (10.1-14.3); Mean Corpuscular HGB Conc 34 % (30-34); Mean Corpuscular Hemoglobin 33 pg (28-32); Mean Corpuscular Volume 97 fl (79-97); Platelet Count 137 K/mm3 (140-440); Red Blood Count 2.52 M/mm3 (3.65-5.03); Red Cell Distribution Width 14.3 % (13.2-15.2); White Blood Count 6.4 K/mm3 (4.5-11.0)
[2016-07-09 06:06] LABS: Anion Gap 18 mmol/L; Blood Urea Nitrogen 8 mg/dL (7-17); Carbon Dioxide 26 mmol/L (22-30); Glucose 96 mg/dL (65-100); Magnesium 1.6 mg/dL (1.7-2.3); Potassium 3.8 mmol/L (3.6-5.0); Sodium 137 mmol/L (137-145)
[2016-07-09] MEDS ORDERED: MAGNESIUM SULFATE 4GM/100ML 4 GM/100 ML BAG IV ONE (08:00)
--- NOTE | 2016-07-09 09:18 | Progress Note ---
Assessment and Plan AMS. On improvement. CIWA score slowly improving also. suspected alcohol withdrawal Tachycardia Thombocytopenia Hypomagnesemia. Been replaced Hypertension. Improvement but she may still need additional medication despite beta karsten, Noraretha discussed Rec Angi for fever and culture if noted Continue monitor blood pressure. See above Gentle fluids CIWA protocol,sedation if needed Monitor for seizures,respiratory deterioration arrhythmias CCT 31 min [id number] evaluation and coordination of care Subjective Date of service: 07/09/16 Interval history: Somnolent. No additional complaints overnight per nursing report Objective Vital Signs - 12hr 07/08/16 07/08/16 07/08/16 21:30 21:31 22:00 Temperature Pulse Rate 96 H 110 H 97 H Pulse Rate [ Apical] Pulse Rate [ From Monitor] Respiratory 23 26 H Rate Blood Pressure 168/118 117/108 181/109 O2 Sat by Pulse 100 100 Oximetry 07/08/16 07/08/16 07/08/16 22:30 23:00 23:09 Temperature Pulse Rate 98 H 104 H 100 H Pulse Rate [ Apical] Pulse Rate [ From Monitor] Respiratory 23 28 H 25 H Rate Blood Pressure 181/114 194/119 194/119 O2 Sat by Pulse 100 100 100 Oximetry 07/08/16 07/08/16 07/09/16 23:29 23:30 00:00 Temperature 98.8 F Pulse Rate 98 H 101 H Pulse Rate [ 101 H Apical] Pulse Rate [ 101 H From Monitor] Respiratory 26 H 24 23 Rate Blood Pressure 190/112 181/108 O2 Sat by Pulse 100 100 100 Oximetry 07/09/16 07/09/16 07/09/16 00:30 01:00 01:30 Temperature Pulse Rate 103 H 111 H 106 H Pulse Rate [ Apical] Pulse Rate [ From Monitor] Respiratory 27 H 22 23 Rate Blood Pressure 181/98 185/106 176/101 O2 Sat by Pulse 100 100 100 Oximetry 07/09/16 07/09/16 07/09/16 02:00 02:30 03:00 Temperature Pulse Rate 112 H 116 H 111 H Pulse Rate [ Apical] Pulse Rate [ From Monitor] Respiratory 22 22 22 Rate Blood Pressure 175/108 187/118 175/97 O2 Sat by Pulse 100 99 100 Oximetry 07/09/16 07/09/16 07/09/16 03:30 04:00 04:01 Temperature 98.8 F Pulse Rate 116 H 131 H Pulse Rate [ 107 H Apical] Pulse Rate [ 107 H From Monitor] Respiratory 23 27 H 15 Rate Blood Pressure 178/101 169/118 O2 Sat by Pulse 100 100 100 Oximetry 07/09/16 07/09/16 07/09/16 04:30 05:00 05:11 Temperature Pulse Rate 114 H 101 H 99 H Pulse Rate [ Apical] Pulse Rate [ From Monitor] Respiratory 23 25 H Rate Blood Pressure 167/107 189/121 188/110 O2 Sat by Pulse 100 100 Oximetry 07/09/16 07/09/16 07/09/16 05:30 06:00 06:30 Temperature Pulse Rate 105 H 108 H 109 H Pulse Rate [ Apical] Pulse Rate [ From Monitor] Respiratory 22 24 23 Rate Blood Pressure 164/102 163/89 163/89 O2 Sat by Pulse 99 100 100 Oximetry 07/09/16 07/09/16 07/09/16 07:00 07:30 08:00 Temperature 98 F Pulse Rate 110 H 118 H 113 H Pulse Rate [ Apical] Pulse Rate [ 114 H From Monitor] Respiratory 22 21 20 Rate Blood Pressure 150/96 145/106 151/100 O2 Sat by Pulse 100 99 100 Oximetry 07/09/16 07/09/16 08:31 09:00 Temperature Pulse Rate 114 H 113 H Pulse Rate [ Apical] Pulse Rate [ From Monitor] Respiratory 21 23 Rate Blood Pressure 148/103 150/92 O2 Sat by Pulse 100 100 Oximetry Constitutional: asleep ENT: oropharynx dry Neck: supple Ascultation: Bilateral: clear (sporadi transmitted rhonchi) Percussion: Bilateral: not dull Cardiovascular: regular rate and rhythm (tachycardia) Gastrointestinal: normoactive bowel sounds, soft, non-distended Integumentary: normal Extremities: no cyanosis Neurologic: non-focal exam, CN II-XII normal, other (Notremor.Alert but not oriented) Psychiatric: mood appropriate CBC and BMP: 07/09/16 04:36 07/09/16 04:36 ABG, PT/INR, D-dimer: ABG POC ABG pH 7.298 (7.35-7.45) L 07/05/16 05:23 POC ABG pCO2 27.2 (35-45) L 07/05/16 05:23 POC ABG pO2 130 (80-105) H 07/05/16 05:23 POC ABG HCO3 13.3 07/05/16 05:23 POC ABG Total CO2 14 07/05/16 05:23 POC ABG O2 Sat 99 07/05/16 05:23 PT/INR, D-dimer PT 14.1 Sec. (12.2-14.9) 07/03/16 04:42 INR 1.10 (0.87-1.13) 07/03/16 04:42 Abnormal lab findings: Abnormal Labs 07/04/16 07/04/16 07/04/16 04:16 05:18 05:18 RBC 2.64 L Hgb 8.6 L Hct 25.2 L D MCV MCH 33 H RDW Plt Count 50 L [place] % (Auto) Lymph # 1.0 L Seg Neutrophils % 78.8 H POC ABG pH POC ABG pCO2 31.6 L POC ABG pO2 157 H Potassium Chloride Carbon Dioxide 16 L Creatinine Glucose POC Glucose Calcium 4.5 L* D Magnesium AST Total Protein Albumin 07/04/16 07/04/16 07/05/16 15:51 18:00 04:34 RBC 2.47 L Hgb 8.1 L Hct 24.1 L MCV MCH 33 H RDW Plt Count 99 L [place] % (Auto) Lymph # Seg Neutrophils % POC ABG pH POC ABG pCO2 POC ABG pO2 Potassium Chloride Carbon Dioxide Creatinine Glucose POC Glucose 59 L Calcium 4.8 L* Magnesium AST Total Protein Albumin 07/05/16 07/05/16 07/05/16 04:34 05:23 17:47 RBC Hgb Hct MCV MCH RDW Plt Count [place] % (Auto) Lymph # Seg Neutrophils % POC ABG pH 7.298 L POC ABG pCO2 27.2 L POC ABG pO2 130 H Potassium 3.2 L Chloride Carbon Dioxide 15 L Creatinine Glucose POC Glucose 138 H Calcium 5.7 L* D Magnesium AST 149 H Total Protein 5.3 L D Albumin 2.5 L 07/06/16 07/06/16 07/06/16 01:39 06:30 12:16 RBC 2.65 L Hgb 8.7 L Hct 25.7 L MCV MCH 33 H RDW Plt Count 77 L [place] % (Auto) 11.3 H Lymph # 0.7 L Seg Neutrophils % 72.4 H POC ABG pH POC ABG pCO2 POC ABG pO2 Potassium Chloride Carbon Dioxide Creatinine Glucose POC Glucose 134 H 127 H Calcium Magnesium AST Total Protein Albumin 07/06/16 07/06/16 07/07/16 17:35 23:50 04:41 RBC 2.95 L Hgb 9.6 L Hct 28.9 L MCV 98 H MCH 33 H RDW 15.5 H Plt Count 100 L [place] % (Auto) Lymph # Seg Neutrophils % POC ABG pH POC ABG pCO2 POC ABG pO2 Potassium Chloride Carbon Dioxide Creatinine Glucose POC Glucose 132 H 126 H Calcium Magnesium AST Total Protein Albumin 07/07/16 07/07/16 07/07/16 04:41 05:35 11:16 RBC Hgb Hct MCV MCH RDW Plt Count [place] % (Auto) Lymph # Seg Neutrophils % POC ABG pH POC ABG pCO2 POC ABG pO2 Potassium Chloride 107.1 H Carbon Dioxide 18 L 16 L Creatinine 0.4 L 0.4 L Glucose 109 H 117 H POC Glucose 125 H Calcium 5.8 L* 5.7 L* Magnesium AST Total Protein Albumin 07/07/16 07/07/16 07/08/16 11:56 17:12 07:17 RBC 2.46 L Hgb 7.9 L Hct 23.6 L MCV MCH RDW Plt Count 97 L [place] % (Auto) Lymph # Seg Neutrophils % POC ABG pH POC ABG pCO2 POC ABG pO2 Potassium Chloride Carbon Dioxide Creatinine Glucose POC Glucose 116 H 131 H Calcium Magnesium AST Total Protein Albumin 07/08/16 07/08/16 07/08/16 07:17 10:31 17:07 RBC Hgb Hct MCV MCH RDW Plt Count [place] % (Auto) Lymph # Seg Neutrophils % POC ABG pH POC ABG pCO2 POC ABG pO2 Potassium 3.5 L Chloride Carbon Dioxide 21 L Creatinine 0.5 L Glucose 105 H POC Glucose 118 H Calcium 6.3 L Magnesium 0.5 L* AST Total Protein Albumin 07/09/16 07/09/16 04:36 04:36 RBC 2.52 L Hgb 8.3 L Hct 24.4 L MCV MCH 33 H RDW Plt Count 137 L [place] % (Auto) Lymph # Seg Neutrophils % POC ABG pH POC ABG pCO2 POC ABG pO2 Potassium Chloride 97.0 L Carbon Dioxide Creatinine 0.5 L Glucose POC Glucose Calcium 7.0 L Magnesium 1.6 L AST Total Protein Albumin
[2016-07-09] MEDS: VITAMIN B-1 PO SCH (09:27)
[2016-07-09] MEDS: AUGMENTIN 875 MG PO SCH (09:27)
[2016-07-09] MEDS: PEPCID PO SCH (09:27)
[2016-07-09] MEDS: FOLVITE PO SCH (09:27)
[2016-07-09] MEDS: HCTZ PO SCH (09:27)
[2016-07-09] MEDS: NORVASC PO SCH (13:16)
--- NOTE | 2016-07-09 15:34 | Progress Note ---
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 She was brought to [facility] emergency department, had a seizure episode and was intubated for airway protection. -Status epilepticus, resolved -Acute respiratory failure, resolved extubated 07/05/2016- Face mask. STILL somnolent. kEEP HOB >45 deg. Discussed with Nursing staff. No family avail at this time -Acute metabolic encephalopathy -Alcohol withdrawal with delirium tremens seizure-remains in restraints, still confused, remains in ICU due to increased CIWA score, Lopressor via NG tube -Severe hypomagnesemia-dependent recheck levels -Hypertension: Continue Lopressor -Drop hematocrit most likely dilutional -Hypocalcemia: replace and recheck -Thrombocytopenia: [id number] ordered for TTP, peripheral blood smear shows decreased platelets -DVT prophylaxis: SCDs only due to the severe thrombocytopenia -35 minutes of critical care time of admission of care History Interval history: Patient seen and examined this morning and remains very somnolent. Otherwise in no acute distress. Continues on facemask. No additional adverse events reported by nursing staff. Hospitalist Physical - Physical exam Narrative exam: VITAL SIGNS: Reviewed. GENERAL: The patient appeared well nourished and normally developed. Somnolent Vital signs as documented. HEAD: No signs of head trauma. EYES: Pupils are equal. . EARS: Hearing grossly intact. MOUTH: Oropharynx is normal. NECK: No adenopathy, no JVD. CHEST: Chest with crackles at the bases. No wheezes, rales, or rhonchi. CARDIAC: Regular rate and rhythm. S1 and S2, without murmurs, gallops, or rubs. VASCULAR: No Edema. Peripheral pulses normal and equal in all extremities. ABDOMEN: Soft, without detectable tenderness. No sign of distention. No rebound or guarding, and no masses palpated. Bowel Sounds normal. MUSCULOSKELETAL: Good range of motion of all major joints. Extremities without clubbing, cyanosis or edema. NEUROLOGIC EXAM: Somnolent, and lethargic. No focal sensory or strength deficits. Speech drowsy but not slurred. PSYCHIATRIC: Mood unable to assess SKIN: No rash or lesions. - Constitutional Vitals: Temp Pulse Resp BP Pulse Ox 99 F 105 H 18 135/89 100 07/09/16 12:00 07/09/16 15:00 07/09/16 15:00 07/09/16 15:00 07/09/16 15:00 General appearance: Present: no acute distress, well-nourished Results - Labs CBC & Chem 7: 07/09/16 04:36 07/09/16 15:17 Labs: Laboratory Last Values WBC 6.4 K/mm3 (4.5-11.0) 07/09/16 04:36 RBC 2.52 M/mm3 (3.65-5.03) L 07/09/16 04:36 Hgb 8.3 gm/dl (10.1-14.3) L 07/09/16 04:36 Hct 24.4 % (30.3-42.9) L 07/09/16 04:36 MCV 97 fl (79-97) 07/09/16 04:36 MCH 33 pg (28-32) H 07/09/16 04:36 MCHC 34 % (30-34) 07/09/16 04:36 RDW 14.3 % (13.2-15.2) 07/09/16 04:36 Plt Count 137 K/mm3 (140-440) L 07/09/16 04:36 Lymph % (Auto) 15.6 % (13.4-35.0) 07/06/16 06:30 [place] % (Auto) 11.3 % (0.0-7.3) H 07/06/16 06:30 Eos % (Auto) 0.2 % (0.0-4.3) 07/06/16 06:30 Baso % (Auto) 0.5 % (0.0-1.8) 07/06/16 06:30 Lymph # 0.7 K/mm3 (1.2-5.4) L 07/06/16 06:30 [place] # 0.5 K/mm3 (0.0-0.8) 07/06/16 06:30 Eos # 0.0 K/mm3 (0.0-0.4) 07/06/16 06:30 Baso # 0.0 K/mm3 (0.0-0.1) 07/06/16 06:30 Add Manual Diff Complete 07/03/16 04:42 Total Counted 100 07/03/16 04:42 Seg Neutrophils % 72.4 % (40.0-70.0) H 07/06/16 06:30 Seg Neuts % (Manual) 94.0 % (40.0-70.0) H 07/03/16 04:42 Band Neutrophils % 0 % 07/03/16 04:42 Lymphocytes % (Manual) 4.0 % (13.4-35.0) L 07/03/16 04:42 Reactive Lymphs % (Man) 0 % 07/03/16 04:42 Monocytes % (Manual) 2.0 % (0.0-7.3) 07/03/16 04:42 Eosinophils % (Manual) 0 % (0.0-4.3) 07/03/16 04:42 Basophils % (Manual) 0 % (0.0-1.8) 07/03/16 04:42 Metamyelocytes % 0 % 07/03/16 04:42 Myelocytes % 0 % 07/03/16 04:42 Promyelocytes % 0 % 07/03/16 04:42 Blast Cells % 0 % 07/03/16 04:42 Nucleated RBC % Not Reportable 07/03/16 04:42 Seg Neutrophils # 3.3 K/mm3 (1.8-7.7) 07/06/16 06:30 Seg Neutrophils # Man 7.1 K/mm3 (1.8-7.7) 07/03/16 04:42 Band Neutrophils # 0.0 K/mm3 07/03/16 04:42 Lymphocytes # (Manual) 0.3 K/mm3 (1.2-5.4) L 07/03/16 04:42 Abs React Lymphs (Man) 0.0 K/mm3 07/03/16 04:42 Monocytes # (Manual) 0.2 K/mm3 (0.0-0.8) 07/03/16 04:42 Eosinophils # (Manual) 0.0 K/mm3 (0.0-0.4) 07/03/16 04:42 Basophils # (Manual) 0.0 K/mm3 (0.0-0.1) 07/03/16 04:42 Metamyelocytes # 0.0 K/mm3 07/03/16 04:42 Myelocytes # 0.0 K/mm3 07/03/16 04:42 Promyelocytes # 0.0 K/mm3 07/03/16 04:42 Blast Cells # 0.0 K/mm3 07/03/16 04:42 WBC Morphology Not Reportable 07/03/16 04:42 Hypersegmented Neuts Not Reportable 07/03/16 04:42 Hyposegmented Neuts Not Reportable 07/03/16 04:42 Hypogranular Neuts Not Reportable 07/03/16 04:42 Smudge Cells Not Reportable 07/03/16 04:42 Toxic Granulation Not Reportable 07/03/16 04:42 Toxic Vacuolation Not Reportable 07/03/16 04:42 Dohle Bodies Not Reportable 07/03/16 04:42 Pelger-Huet Anomaly Not Reportable 07/03/16 04:42 Paul Rods Not Reportable 07/03/16 04:42 Platelet Estimate Appears decreased 07/03/16 04:42 Clumped Platelets Not Reportable 07/03/16 04:42 Plt Clumps, EDTA Not Reportable 07/03/16 04:42 Large Platelets Not Reportable 07/03/16 04:42 Giant Platelets Not Reportable 07/03/16 04:42 Platelet Satelliting Not Reportable 07/03/16 04:42 Plt Morphology Comment Not Reportable 07/03/16 04:42 RBC Morphology Normal 07/03/16 04:42 Dimorphic RBCs Not Reportable 07/03/16 04:42 Polychromasia Not Reportable 07/03/16 04:42 Hypochromasia Not Reportable 07/03/16 04:42 Poikilocytosis Not Reportable 07/03/16 04:42 Anisocytosis Not Reportable 07/03/16 04:42 Microcytosis Not Reportable 07/03/16 04:42 Macrocytosis Not Reportable 07/03/16 04:42 Spherocytes Not Reportable 07/03/16 04:42 Pappenheimer Bodies Not Reportable 07/03/16 04:42 Sickle Cells Not Reportable 07/03/16 04:42 Target Cells Not Reportable 07/03/16 04:42 Tear Drop Cells Not Reportable 07/03/16 04:42 Ovalocytes Not Reportable 07/03/16 04:42 Helmet Cells Not Reportable 07/03/16 04:42 Mcleod-Larwill Bodies Not Reportable 07/03/16 04:42 [place] Rings Not Reportable 07/03/16 04:42 Mar[place] Cells Not Reportable 07/03/16 04:42 Bite Cells Not Reportable 07/03/16 04:42 Crenated Cell Not Reportable 07/03/16 04:42 Elliptocytes Not Reportable 07/03/16 04:42 Acanthocytes (Spur) Not Reportable 07/03/16 04:42 Rouleaux Not Reportable 07/03/16 04:42 Hemoglobin C Crystals Not Reportable 07/03/16 04:42 Schistocytes Not Reportable 07/03/16 04:42 Malaria parasites Not Reportable 07/03/16 04:42 Low Bodies Not Reportable 07/03/16 04:42 Hem Pathologist Commnt No 07/03/16 04:42 PT 14.1 Sec. (12.2-14.9) 07/03/16 04:42 INR 1.10 (0.87-1.13) 07/03/16 04:42 POC ABG pH 7.298 (7.35-7.45) L 07/05/16 05:23 POC ABG pCO2 27.2 (35-45) L 07/05/16 05:23 POC ABG pO2 130 (80-105) H 07/05/16 05:23 POC ABG HCO3 13.3 07/05/16 05:23 POC ABG Total CO2 14 07/05/16 05:23 POC ABG O2 Sat 99 07/05/16 05:23 POC ABG Base Excess -13 07/05/16 05:23 VBG pH 7.384 (7.320-7.420) 07/03/16 04:42 FiO2 30 % 07/05/16 05:23 Sodium 137 mmol/L (137-145) 07/09/16 04:36 Potassium 3.8 mmol/L (3.6-5.0) 07/09/16 04:36 Chloride 97.0 mmol/L (98-107) L 07/09/16 04:36 Carbon Dioxide 26 mmol/L (22-30) 07/09/16 04:36 Anion Gap 18 mmol/L 07/09/16 04:36 BUN 8 mg/dL (7-17) 07/09/16 04:36 Creatinine 0.5 mg/dL (0.7-1.2) L 07/09/16 04:36 Estimated GFR > 60 ml/min 07/09/16 04:36 BUN/Creatinine Ratio 16.00 % 07/09/16 04:36 Glucose 96 mg/dL (65-100) 07/09/16 04:36 POC Glucose 93 (70-105) 07/09/16 05:27 Lactic Acid 0.9 mmol/L (0.7-2.0) 07/03/16 14:01 Calcium 7.0 mg/dL (8.4-10.2) L 07/09/16 04:36 Phosphorus 3.1 mg/dL (2.5-4.5) 07/04/16 15:51 Magnesium 1.6 mg/dL (1.7-2.3) L 07/09/16 04:36 Total Bilirubin 1.0 mg/dL (0.1-1.2) 07/05/16 04:34 AST 149 units/L (5-40) H 07/05/16 04:34 ALT 52 units/L (7-56) 07/05/16 04:34 Alkaline Phosphatase 68 units/L (35-129) 07/05/16 04:34 Ammonia 43.0 umol/L (25-60) 07/03/16 14:01 Total Protein 5.3 g/dL (6.3-8.2) L D 07/05/16 04:34 Albumin 2.5 g/dL (3.9-5) L 07/05/16 04:34 Albumin/Globulin Ratio 0.9 % 07/05/16 04:34 TSH 1.450 mlU/mL (0.270-4.200) 07/03/16 06:16 Urine Color [place] (Yellow) 07/03/16 04:31 Urine Turbidity Clear (Clear) 07/03/16 04:31 Urine pH 5.0 (5.0-7.0) 07/03/16 04:31 Ur Specific [place] 1.024 (1.003-1.030) 07/03/16 04:31 Urine Protein >500 mg/dL (Negative) 07/03/16 04:31 Urine Glucose (UA) Neg mg/dL (Negative) 07/03/16 04:31 Urine Ketones 20 mg/dL (Negative) 07/03/16 04:31 Urine Blood Mod (Negative) 07/03/16 04:31 Urine Nitrite Neg (Negative) 07/03/16 04:31 Urine Bilirubin Neg (Negative) 07/03/16 04:31 Urine Urobilinogen < 2.0 mg/dL (<2.0) 07/03/16 04:31 Ur Leukocyte Esterase Neg (Negative) 07/03/16 04:31 Urine WBC (Auto) 3.0 /HPF (0.0-6.0) 07/03/16 04:31 Urine RBC (Auto) 4.0 /HPF (0.0-6.0) 07/03/16 04:31 U Epithel Cells (Auto) < 1.0 /HPF (0-13.0) 07/03/16 04:31 Urine Bacteria (Auto) 1+ /HPF (Negative) 07/03/16 04:31 Urine Mucus 1+ /HPF 07/03/16 04:31 Urine HCG, Qual Negative (Negative) 07/03/16 04:43 Salicylates < 0.3 mg/dL (2.8-20.0) L 07/03/16 06:16 Urine Opiates Screen Presumptive negative 07/03/16 07:00 Urine Methadone Screen Presumptive negative 07/03/16 07:00 Acetaminophen < 15.0 ug/mL (10.0-30.0) 07/03/16 06:16 Ur Barbiturates Screen Presumptive negative 07/03/16 07:00 Ur Phencyclidine Scrn Presumptive negative 07/03/16 07:00 Ur Amphetamines Screen Presumptive negative 07/03/16 07:00 U Benzodiazepines Scrn Presumptive negative 07/03/16 07:00 Urine Cocaine Screen Presumptive negative 07/03/16 07:00 U Marijuana (THC) Screen Presumptive negative 07/03/16 07:00 Drugs of Abuse Note Disclamer 07/03/16 07:00 Plasma/Serum Alcohol < 0.01 gm% (0-0.07) 07/03/16 06:16 Miscellaneous Test Flexitest 1 H 07/04/16 05:15
[2016-07-09 16:15] LABS: Anion Gap 17 mmol/L; Blood Urea Nitrogen 9 mg/dL (7-17); Calcium 7.4 mg/dL (8.4-10.2); Carbon Dioxide 27 mmol/L (22-30); Chloride 92.1 mmol/L (98-107); Glucose 126 mg/dL (65-100); Potassium 3.3 mmol/L (3.6-5.0); Sodium 133 mmol/L (137-145)
[2016-07-09] MEDS: ATIVAN IV PRN (20:30)
[2016-07-09] MEDS: HALDOL IV PRN (23:00)
[2016-07-10] MEDS: PEPCID PO SCH ×3 (00:15→22:10)
[2016-07-10] MEDS: AUGMENTIN 875 MG PO SCH ×3 (00:15→22:11)
--- NOTE | 2016-07-10 00:41 | XRay Report ---
FINAL REPORT PROCEDURE: XR ABDOMEN 1V AP TECHNIQUE: Abdominal radiograph, single supine AP view. HISTORY: dobhoff placement COMPARISON: No prior studies are available for comparison. FINDINGS: Bowel gas pattern:Nonobstructive. Masses or calcifications:None. Bony structures:No significant abnormality. Other:Tip of the NG tube is in the antrum of the stomach.. IMPRESSION: No acute abnormality. The NG tube is in the stomach.
[2016-07-10] MEDS: APRESOLINE IV PRN ×2 (02:15→06:58)
[2016-07-10] MEDS: ATIVAN IV PRN ×2 (04:10→22:24)
--- NOTE | 2016-07-10 08:19 | Progress Note ---
Assessment and Plan AMS. Improved Suspected alcohol withdrawal Tachycardia Thombocytopenia Hypomagnesemia. Been replaced Hypertension. Rec OOB as tolerated If able to swallow, consider bland or clear diet Monitor fever , HBP- Lopressor to 100 mg BID ?? Switch BZD's to Librium CCT 31 min [id number] evaluation and coordination of care Subjective Date of service: 07/10/16 Interval history: " I am sleepy".No cough Objective Vital Signs - 12hr 07/09/16 07/09/16 07/09/16 20:30 21:00 21:10 Temperature Pulse Rate 127 H 122 H 124 H Pulse Rate [ From Monitor] Respiratory 21 24 Rate Blood Pressure 160/101 168/93 181/113 O2 Sat by Pulse 100 Oximetry 07/09/16 07/09/16 07/09/16 21:30 22:00 22:30 Temperature Pulse Rate 126 H 129 H 124 H Pulse Rate [ From Monitor] Respiratory 19 19 20 Rate Blood Pressure 167/89 138/89 132/60 O2 Sat by Pulse 100 100 100 Oximetry 07/09/16 07/09/16 07/09/16 23:00 23:31 23:51 Temperature Pulse Rate 126 H 131 H 127 H Pulse Rate [ From Monitor] Respiratory 14 18 17 Rate Blood Pressure 139/71 154/92 171/91 O2 Sat by Pulse 100 100 100 Oximetry 07/10/16 07/10/16 07/10/16 00:00 00:30 01:00 Temperature 100.4 F H Pulse Rate 128 H 125 H 120 H Pulse Rate [ 111 H From Monitor] Respiratory 19 18 16 Rate Blood Pressure 153/81 155/90 162/86 O2 Sat by Pulse 100 100 99 Oximetry 07/10/16 07/10/16 07/10/16 01:30 02:00 02:15 Temperature Pulse Rate 118 H 124 H 119 H Pulse Rate [ From Monitor] Respiratory 17 21 Rate Blood Pressure 154/88 158/101 158/101 O2 Sat by Pulse 100 99 Oximetry 07/10/16 07/10/16 07/10/16 02:30 03:00 03:30 Temperature Pulse Rate 120 H 120 H 116 H Pulse Rate [ From Monitor] Respiratory 20 19 17 Rate Blood Pressure 115/79 121/74 152/89 O2 Sat by Pulse 100 100 100 Oximetry 07/10/16 07/10/16 07/10/16 04:00 04:01 04:30 Temperature 99.6 F Pulse Rate 133 H 117 H Pulse Rate [ 120 H From Monitor] Respiratory 19 21 21 Rate Blood Pressure 170/100 162/93 O2 Sat by Pulse 100 100 100 Oximetry 07/10/16 07/10/16 07/10/16 05:00 05:30 06:00 Temperature Pulse Rate 121 H 121 H 122 H Pulse Rate [ From Monitor] Respiratory 19 20 20 Rate Blood Pressure 108/78 131/71 151/91 O2 Sat by Pulse 100 100 99 Oximetry 07/10/16 07/10/16 07/10/16 06:31 07:00 07:30 Temperature Pulse Rate 132 H 106 H 107 H Pulse Rate [ From Monitor] Respiratory 21 19 16 Rate Blood Pressure 154/94 161/96 148/77 O2 Sat by Pulse 99 98 98 Oximetry 07/10/16 08:01 Temperature Pulse Rate 113 H Pulse Rate [ From Monitor] Respiratory 23 Rate Blood Pressure 151/97 O2 Sat by Pulse 97 Oximetry Constitutional: alert, other (somnolent) ENT: oropharynx dry Neck: supple Ascultation: Bilateral: clear (sporadi transmitted rhonchi) Percussion: Bilateral: not dull Cardiovascular: regular rate and rhythm (tachycardia) Gastrointestinal: normoactive bowel sounds, soft, non-distended Integumentary: normal Extremities: no cyanosis Neurologic: non-focal exam, CN II-XII normal Psychiatric: mood appropriate CBC and BMP: 07/09/16 04:36 07/09/16 15:17 ABG, PT/INR, D-dimer: ABG POC ABG pH 7.298 (7.35-7.45) L 07/05/16 05:23 POC ABG pCO2 27.2 (35-45) L 07/05/16 05:23 POC ABG pO2 130 (80-105) H 07/05/16 05:23 POC ABG HCO3 13.3 07/05/16 05:23 POC ABG Total CO2 14 07/05/16 05:23 POC ABG O2 Sat 99 07/05/16 05:23 PT/INR, D-dimer PT 14.1 Sec. (12.2-14.9) 07/03/16 04:42 INR 1.10 (0.87-1.13) 07/03/16 04:42 Abnormal lab findings: Abnormal Labs 07/04/16 07/04/16 07/04/16 04:16 05:15 05:18 RBC 2.64 L Hgb 8.6 L Hct 25.2 L D MCV MCH 33 H RDW Plt Count 50 L [place] % (Auto) Lymph # 1.0 L Seg Neutrophils % 78.8 H POC ABG pH POC ABG pCO2 31.6 L POC ABG pO2 157 H Sodium Potassium Chloride Carbon Dioxide Creatinine Glucose POC Glucose Calcium Magnesium AST Total Protein Albumin Miscellaneous Test Flexitest 1 H 07/04/16 07/04/16 07/04/16 05:18 15:51 18:00 RBC Hgb Hct MCV MCH RDW Plt Count [place] % (Auto) Lymph # Seg Neutrophils % POC ABG pH POC ABG pCO2 POC ABG pO2 Sodium Potassium Chloride Carbon Dioxide 16 L Creatinine Glucose POC Glucose 59 L Calcium 4.5 L* D 4.8 L* Magnesium AST Total Protein Albumin Miscellaneous Test 07/05/16 07/05/16 07/05/16 04:34 04:34 05:23 RBC 2.47 L Hgb 8.1 L Hct 24.1 L MCV MCH 33 H RDW Plt Count 99 L [place] % (Auto) Lymph # Seg Neutrophils % POC ABG pH 7.298 L POC ABG pCO2 27.2 L POC ABG pO2 130 H Sodium Potassium 3.2 L Chloride Carbon Dioxide 15 L Creatinine Glucose POC Glucose Calcium 5.7 L* D Magnesium AST 149 H Total Protein 5.3 L D Albumin 2.5 L Miscellaneous Test 07/05/16 07/06/16 07/06/16 17:47 01:39 06:30 RBC 2.65 L Hgb 8.7 L Hct 25.7 L MCV MCH 33 H RDW Plt Count 77 L [place] % (Auto) 11.3 H Lymph # 0.7 L Seg Neutrophils % 72.4 H POC ABG pH POC ABG pCO2 POC ABG pO2 Sodium Potassium Chloride Carbon Dioxide Creatinine Glucose POC Glucose 138 H 134 H Calcium Magnesium AST Total Protein Albumin Miscellaneous Test 07/06/16 07/06/16 07/06/16 12:16 17:35 23:50 RBC Hgb Hct MCV MCH RDW Plt Count [place] % (Auto) Lymph # Seg Neutrophils % POC ABG pH POC ABG pCO2 POC ABG pO2 Sodium Potassium Chloride Carbon Dioxide Creatinine Glucose POC Glucose 127 H 132 H 126 H Calcium Magnesium AST Total Protein Albumin Miscellaneous Test 07/07/16 07/07/16 07/07/16 04:41 04:41 05:35 RBC 2.95 L Hgb 9.6 L Hct 28.9 L MCV 98 H MCH 33 H RDW 15.5 H Plt Count 100 L [place] % (Auto) Lymph # Seg Neutrophils % POC ABG pH POC ABG pCO2 POC ABG pO2 Sodium Potassium Chloride Carbon Dioxide 18 L Creatinine 0.4 L Glucose 109 H POC Glucose 125 H Calcium 5.8 L* Magnesium AST Total Protein Albumin Miscellaneous Test 07/07/16 07/07/16 07/07/16 11:16 11:56 17:12 RBC Hgb Hct MCV MCH RDW Plt Count [place] % (Auto) Lymph # Seg Neutrophils % POC ABG pH POC ABG pCO2 POC ABG pO2 Sodium Potassium Chloride 107.1 H Carbon Dioxide 16 L Creatinine 0.4 L Glucose 117 H POC Glucose 116 H 131 H Calcium 5.7 L* Magnesium AST Total Protein Albumin Miscellaneous Test 07/08/16 07/08/16 07/08/16 07:17 07:17 10:31 RBC 2.46 L Hgb 7.9 L Hct 23.6 L MCV MCH RDW Plt Count 97 L [place] % (Auto) Lymph # Seg Neutrophils % POC ABG pH POC ABG pCO2 POC ABG pO2 Sodium Potassium 3.5 L Chloride Carbon Dioxide 21 L Creatinine 0.5 L Glucose 105 H POC Glucose Calcium 6.3 L Magnesium 0.5 L* AST Total Protein Albumin Miscellaneous Test 07/08/16 07/09/16 07/09/16 17:07 04:36 04:36 RBC 2.52 L Hgb 8.3 L Hct 24.4 L MCV MCH 33 H RDW Plt Count 137 L [place] % (Auto) Lymph # Seg Neutrophils % POC ABG pH POC ABG pCO2 POC ABG pO2 Sodium Potassium Chloride 97.0 L Carbon Dioxide Creatinine 0.5 L Glucose POC Glucose 118 H Calcium 7.0 L Magnesium 1.6 L AST Total Protein Albumin Miscellaneous Test 07/09/16 07/09/16 07/09/16 12:03 15:17 17:52 RBC Hgb Hct MCV MCH RDW Plt Count [place] % (Auto) Lymph # Seg Neutrophils % POC ABG pH POC ABG pCO2 POC ABG pO2 Sodium 133 L Potassium 3.3 L Chloride 92.1 L Carbon Dioxide Creatinine 0.5 L Glucose 126 H POC Glucose 141 H 131 H Calcium 7.4 L Magnesium AST Total Protein Albumin Miscellaneous Test 07/10/16 05:56 RBC Hgb Hct MCV MCH RDW Plt Count [place] % (Auto) Lymph # Seg Neutrophils % POC ABG pH POC ABG pCO2 POC ABG pO2 Sodium Potassium Chloride Carbon Dioxide Creatinine Glucose POC Glucose 122 H Calcium Magnesium AST Total Protein Albumin Miscellaneous Test
[2016-07-10] MEDS ORDERED: MAGNESIUM SULFATE IV ONE (08:47)
[2016-07-10] MEDS: FOLVITE PO SCH (09:50)
[2016-07-10] MEDS: NORVASC PO SCH (09:50)
[2016-07-10] MEDS: LOPRESSOR FEEDTUBE SCH ×2 (09:51→13:48)
[2016-07-10] MEDS: LIBRIUM PO SCH ×3 (09:51→22:10)
[2016-07-10] MEDS: VITAMIN B-1 PO SCH (09:51)
[2016-07-10] MEDS: MAGNESIUM SULFATE 4GM/100ML 4 GM/100 ML BAG IV SCH ×2 (09:52→13:51)
[2016-07-10] MEDS: TYLENOL PO PRN ×2 (09:55→22:11)
[2016-07-10] MEDS: HCTZ PO SCH (10:53)
[2016-07-10 10:59] LABS: Anion Gap 17 mmol/L; Blood Urea Nitrogen 9 mg/dL (7-17); Calcium 7.7 mg/dL (8.4-10.2); Carbon Dioxide 28 mmol/L (22-30); Chloride 92.4 mmol/L (98-107); Glucose 106 mg/dL (65-100); Potassium 3.2 mmol/L (3.6-5.0); Sodium 134 mmol/L (137-145)
[2016-07-10] MEDS: POTASSIUM CHLORIDE FEEDTUBE SCH ×2 (13:46→18:56)
--- NOTE | 2016-07-10 18:55 | Progress Note ---
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 She was brought to [facility] emergency department, had a seizure episode and was intubated for airway protection. -Status epilepticus, resolved -Acute respiratory failure, resolved extubated 07/05/2016- continues to improve. kEEP HOB >45 deg. Discussed with Nursing staff. -Acute metabolic encephalopathy- resolved -Alcohol withdrawal with delirium tremens seizure-remains in restraints, CONTINUE TO MONITOR CIWA switch Lopressor to PO -Severe hypomagnesemia-likely secondary to alcohol abuse- replace and check levels. start on daily Mag oxide PO -Hypertension: Continue Lopressor -Anemia- stable -Hypocalcemia: replace and recheck -Thrombocytopenia: [id number] ordered for TTP, peripheral blood smear shows decreased platelets, will start with Librum -DVT prophylaxis: SCDs only due to the severe thrombocytopenia -Plan discussed in detail with patient, Counselling also provided History Interval history: Patient seen and examined this morning was still lethargic this am but improved later in the day. Otherwise in no acute distress. No additional adverse events reported by nursing staff. Hospitalist Physical - Physical exam Narrative exam: VITAL SIGNS: Reviewed. GENERAL: The patient appeared well nourished and normally developed. Somnolent Vital signs as documented. HEAD: No signs of head trauma. EYES: Pupils are equal. . EARS: Hearing grossly intact. MOUTH: Oropharynx is normal. NECK: No adenopathy, no JVD. CHEST: Chest with crackles at the bases. No wheezes, rales, or rhonchi. CARDIAC: Regular rate and rhythm. S1 and S2, without murmurs, gallops, or rubs. VASCULAR: No Edema. Peripheral pulses normal and equal in all extremities. ABDOMEN: Soft, without detectable tenderness. No sign of distention. No rebound or guarding, and no masses palpated. Bowel Sounds normal. MUSCULOSKELETAL: Good range of motion of all major joints. Extremities without clubbing, cyanosis or edema. NEUROLOGIC EXAM: Awake, and lethargic. No focal sensory or strength deficits. Speech drowsy but not slurred. PSYCHIATRIC: Mood anxious SKIN: No rash or lesions. - Constitutional Vitals: Temp Pulse Resp BP Pulse Ox 98.9 F 105 H 18 148/86 100 07/10/16 16:00 07/10/16 16:31 07/10/16 16:31 07/10/16 16:31 07/10/16 16:31 General appearance: Present: no acute distress, well-nourished Results - Labs CBC & Chem 7: 07/09/16 04:36 07/10/16 07:22 Labs: Laboratory Last Values WBC 6.4 K/mm3 (4.5-11.0) 07/09/16 04:36 RBC 2.52 M/mm3 (3.65-5.03) L 07/09/16 04:36 Hgb 8.3 gm/dl (10.1-14.3) L 07/09/16 04:36 Hct 24.4 % (30.3-42.9) L 07/09/16 04:36 MCV 97 fl (79-97) 07/09/16 04:36 MCH 33 pg (28-32) H 07/09/16 04:36 MCHC 34 % (30-34) 07/09/16 04:36 RDW 14.3 % (13.2-15.2) 07/09/16 04:36 Plt Count 137 K/mm3 (140-440) L 07/09/16 04:36 Lymph % (Auto) 15.6 % (13.4-35.0) 07/06/16 06:30 [place] % (Auto) 11.3 % (0.0-7.3) H 07/06/16 06:30 Eos % (Auto) 0.2 % (0.0-4.3) 07/06/16 06:30 Baso % (Auto) 0.5 % (0.0-1.8) 07/06/16 06:30 Lymph # 0.7 K/mm3 (1.2-5.4) L 07/06/16 06:30 [place] # 0.5 K/mm3 (0.0-0.8) 07/06/16 06:30 Eos # 0.0 K/mm3 (0.0-0.4) 07/06/16 06:30 Baso # 0.0 K/mm3 (0.0-0.1) 07/06/16 06:30 Add Manual Diff Complete 07/03/16 04:42 Total Counted 100 07/03/16 04:42 Seg Neutrophils % 72.4 % (40.0-70.0) H 07/06/16 06:30 Seg Neuts % (Manual) 94.0 % (40.0-70.0) H 07/03/16 04:42 Band Neutrophils % 0 % 07/03/16 04:42 Lymphocytes % (Manual) 4.0 % (13.4-35.0) L 07/03/16 04:42 Reactive Lymphs % (Man) 0 % 07/03/16 04:42 Monocytes % (Manual) 2.0 % (0.0-7.3) 07/03/16 04:42 Eosinophils % (Manual) 0 % (0.0-4.3) 07/03/16 04:42 Basophils % (Manual) 0 % (0.0-1.8) 07/03/16 04:42 Metamyelocytes % 0 % 07/03/16 04:42 Myelocytes % 0 % 07/03/16 04:42 Promyelocytes % 0 % 07/03/16 04:42 Blast Cells % 0 % 07/03/16 04:42 Nucleated RBC % Not Reportable 07/03/16 04:42 Seg Neutrophils # 3.3 K/mm3 (1.8-7.7) 07/06/16 06:30 Seg Neutrophils # Man 7.1 K/mm3 (1.8-7.7) 07/03/16 04:42 Band Neutrophils # 0.0 K/mm3 07/03/16 04:42 Lymphocytes # (Manual) 0.3 K/mm3 (1.2-5.4) L 07/03/16 04:42 Abs React Lymphs (Man) 0.0 K/mm3 07/03/16 04:42 Monocytes # (Manual) 0.2 K/mm3 (0.0-0.8) 07/03/16 04:42 Eosinophils # (Manual) 0.0 K/mm3 (0.0-0.4) 07/03/16 04:42 Basophils # (Manual) 0.0 K/mm3 (0.0-0.1) 07/03/16 04:42 Metamyelocytes # 0.0 K/mm3 07/03/16 04:42 Myelocytes # 0.0 K/mm3 07/03/16 04:42 Promyelocytes # 0.0 K/mm3 07/03/16 04:42 Blast Cells # 0.0 K/mm3 07/03/16 04:42 WBC Morphology Not Reportable 07/03/16 04:42 Hypersegmented Neuts Not Reportable 07/03/16 04:42 Hyposegmented Neuts Not Reportable 07/03/16 04:42 Hypogranular Neuts Not Reportable 07/03/16 04:42 Smudge Cells Not Reportable 07/03/16 04:42 Toxic Granulation Not Reportable 07/03/16 04:42 Toxic Vacuolation Not Reportable 07/03/16 04:42 Dohle Bodies Not Reportable 07/03/16 04:42 Pelger-Huet Anomaly Not Reportable 07/03/16 04:42 Paul Rods Not Reportable 07/03/16 04:42 Platelet Estimate Appears decreased 07/03/16 04:42 Clumped Platelets Not Reportable 07/03/16 04:42 Plt Clumps, EDTA Not Reportable 07/03/16 04:42 Large Platelets Not Reportable 07/03/16 04:42 Giant Platelets Not Reportable 07/03/16 04:42 Platelet Satelliting Not Reportable 07/03/16 04:42 Plt Morphology Comment Not Reportable 07/03/16 04:42 RBC Morphology Normal 07/03/16 04:42 Dimorphic RBCs Not Reportable 07/03/16 04:42 Polychromasia Not Reportable 07/03/16 04:42 Hypochromasia Not Reportable 07/03/16 04:42 Poikilocytosis Not Reportable 07/03/16 04:42 Anisocytosis Not Reportable 07/03/16 04:42 Microcytosis Not Reportable 07/03/16 04:42 Macrocytosis Not Reportable 07/03/16 04:42 Spherocytes Not Reportable 07/03/16 04:42 Pappenheimer Bodies Not Reportable 07/03/16 04:42 Sickle Cells Not Reportable 07/03/16 04:42 Target Cells Not Reportable 07/03/16 04:42 Tear Drop Cells Not Reportable 07/03/16 04:42 Ovalocytes Not Reportable 07/03/16 04:42 Helmet Cells Not Reportable 07/03/16 04:42 [place]cle[place] Bodies Not Reportable 07/03/16 04:42 [place] Rings Not Reportable 07/03/16 04:42 [place] Cells Not Reportable 07/03/16 04:42 Bite Cells Not Reportable 07/03/16 04:42 Crenated Cell Not Reportable 07/03/16 04:42 Elliptocytes Not Reportable 07/03/16 04:42 Acanthocytes (Spur) Not Reportable 07/03/16 04:42 Rouleaux Not Reportable 07/03/16 04:42 Hemoglobin C Crystals Not Reportable 07/03/16 04:42 Schistocytes Not Reportable 07/03/16 04:42 Malaria parasites Not Reportable 07/03/16 04:42 Low Bodies Not Reportable 07/03/16 04:42 Hem Pathologist Commnt No 07/03/16 04:42 PT 14.1 Sec. (12.2-14.9) 07/03/16 04:42 INR 1.10 (0.87-1.13) 07/03/16 04:42 POC ABG pH 7.298 (7.35-7.45) L 07/05/16 05:23 POC ABG pCO2 27.2 (35-45) L 07/05/16 05:23 POC ABG pO2 130 (80-105) H 07/05/16 05:23 POC ABG HCO3 13.3 07/05/16 05:23 POC ABG Total CO2 14 07/05/16 05:23 POC ABG O2 Sat 99 07/05/16 05:23 POC ABG Base Excess -13 07/05/16 05:23 VBG pH 7.384 (7.320-7.420) 07/03/16 04:42 FiO2 30 % 07/05/16 05:23 Sodium 134 mmol/L (137-145) L 07/10/16 07:22 Potassium 3.2 mmol/L (3.6-5.0) L 07/10/16 07:22 Chloride 92.4 mmol/L (98-107) L 07/10/16 07:22 Carbon Dioxide 28 mmol/L (22-30) 07/10/16 07:22 Anion Gap 17 mmol/L 07/10/16 07:22 BUN 9 mg/dL (7-17) 07/10/16 07:22 Creatinine 0.5 mg/dL (0.7-1.2) L 07/10/16 07:22 Estimated GFR > 60 ml/min 07/10/16 07:22 BUN/Creatinine Ratio 18.00 % 07/10/16 07:22 Glucose 106 mg/dL (65-100) H 07/10/16 07:22 POC Glucose 95 (70-105) 07/10/16 17:15 Lactic Acid 0.9 mmol/L (0.7-2.0) 07/03/16 14:01 Calcium 7.7 mg/dL (8.4-10.2) L 07/10/16 07:22 Phosphorus 3.1 mg/dL (2.5-4.5) 07/04/16 15:51 Magnesium 1.2 mg/dL (1.7-2.3) L 07/10/16 07:22 Total Bilirubin 1.0 mg/dL (0.1-1.2) 07/05/16 04:34 AST 149 units/L (5-40) H 07/05/16 04:34 ALT 52 units/L (7-56) 07/05/16 04:34 Alkaline Phosphatase 68 units/L (35-129) 07/05/16 04:34 Ammonia 43.0 umol/L (25-60) 07/03/16 14:01 Total Protein 5.3 g/dL (6.3-8.2) L D 07/05/16 04:34 Albumin 2.5 g/dL (3.9-5) L 07/05/16 04:34 Albumin/Globulin Ratio 0.9 % 07/05/16 04:34 TSH 1.450 mlU/mL (0.270-4.200) 07/03/16 06:16 Urine Color [place] (Yellow) 07/03/16 04:31 Urine Turbidity Clear (Clear) 07/03/16 04:31 Urine pH 5.0 (5.0-7.0) 07/03/16 04:31 Ur Specific [place] 1.024 (1.003-1.030) 07/03/16 04:31 Urine Protein >500 mg/dL (Negative) 07/03/16 04:31 Urine Glucose (UA) Neg mg/dL (Negative) 07/03/16 04:31 Urine Ketones 20 mg/dL (Negative) 07/03/16 04:31 Urine Blood Mod (Negative) 07/03/16 04:31 Urine Nitrite Neg (Negative) 07/03/16 04:31 Urine Bilirubin Neg (Negative) 07/03/16 04:31 Urine Urobilinogen < 2.0 mg/dL (<2.0) 07/03/16 04:31 Ur Leukocyte Esterase Neg (Negative) 07/03/16 04:31 Urine WBC (Auto) 3.0 /HPF (0.0-6.0) 07/03/16 04:31 Urine RBC (Auto) 4.0 /HPF (0.0-6.0) 07/03/16 04:31 U Epithel Cells (Auto) < 1.0 /HPF (0-13.0) 07/03/16 04:31 Urine Bacteria (Auto) 1+ /HPF (Negative) 07/03/16 04:31 Urine Mucus 1+ /HPF 07/03/16 04:31 Urine HCG, Qual Negative (Negative) 07/03/16 04:43 Salicylates < 0.3 mg/dL (2.8-20.0) L 07/03/16 06:16 Urine Opiates Screen Presumptive negative 07/03/16 07:00 Urine Methadone Screen Presumptive negative 07/03/16 07:00 Acetaminophen < 15.0 ug/mL (10.0-30.0) 07/03/16 06:16 Ur Barbiturates Screen Presumptive negative 07/03/16 07:00 Ur Phencyclidine Scrn Presumptive negative 07/03/16 07:00 Ur Amphetamines Screen Presumptive negative 07/03/16 07:00 U Benzodiazepines Scrn Presumptive negative 07/03/16 07:00 Urine Cocaine Screen Presumptive negative 07/03/16 07:00 U Marijuana (THC) Screen Presumptive negative 07/03/16 07:00 Drugs of Abuse Note Disclamer 07/03/16 07:00 Plasma/Serum Alcohol < 0.01 gm% (0-0.07) 07/03/16 06:16 Miscellaneous Test Flexitest 1 H 07/04/16 05:15
[2016-07-10] MEDS ORDERED: K-DUR PO SCH (18:59)
[2016-07-10] MEDS: MAG-OX PO SCH (20:10)
[2016-07-10] MEDS ORDERED: LOPRESSOR PO SCH (22:00)
[2016-07-11] MEDS: LIBRIUM PO SCH ×3 (05:12→22:00)
[2016-07-11 08:49] LABS: Anion Gap 19 mmol/L; Blood Urea Nitrogen 7 mg/dL (7-17); Calcium 8.5 mg/dL (8.4-10.2); Carbon Dioxide 27 mmol/L (22-30); Glucose 89 mg/dL (65-100); Magnesium 1.4 mg/dL (1.7-2.3); Potassium 3.6 mmol/L (3.6-5.0); Sodium 134 mmol/L (137-145)
[2016-07-11] MEDS: PEPCID PO SCH ×2 (09:40→21:58)
[2016-07-11] MEDS: MAG-OX PO SCH (09:40)
[2016-07-11] MEDS: VITAMIN B-1 PO SCH (09:40)
[2016-07-11] MEDS: HCTZ PO SCH (09:40)
[2016-07-11] MEDS: AUGMENTIN 875 MG PO SCH ×2 (09:40→21:58)
[2016-07-11] MEDS: FOLVITE PO SCH (10:32)
[2016-07-11] MEDS: LOPRESSOR PO SCH ×2 (10:32→22:00)
[2016-07-11] MEDS: NORVASC PO SCH (10:52)
[2016-07-11] MEDS ORDERED: MAGNESIUM SULFATE 4GM/100ML 4 GM/100 ML BAG IV ONE (11:00)
--- NOTE | 2016-07-11 11:22 | Progress Note ---
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 She was brought here to [facility] emergency department, had a seizure episode and was intubated for airway protection. Alcohol withdrawal with delirium tremens seizure. On CIWAbprotocol Status epilepticus, resolved Acute respiratory failure, resolved. She was extubated 07/05/2016. Her O2 sat now 98% on room air Acute metabolic encephalopathy- resolved. She is now awake,alert Severe hypomagnesemia-likely secondary to alcohol abuse. Mg 1.4 today. Will give 4g iv today, recheck in am. Hypertension: Increase Lopressor to 50mg po bid. Anemia- stable Thrombocytopenia: DVT prophylaxis: SCDs only due to the severe thrombocytopenia Full code History Interval history: patient with alcohol withdrawal seizures, feels better, no more seizures Hospitalist Physical - Physical exam Narrative exam: Gen: Not in acute distress,overweight HEENT: Normocephalic, atraumatic Neck: supple, no JVD Lungs:Lungs clear to auscultation, bilaterally, no crackles or wheeze Heart S1-S2 regular, tachycardia, no murmurs rubs or gallop, Abdomen: soft, non tender, non distended,bowel sounds present Ext: No edema, no clubbing, no cyanosis Neuro: Awake.alert, oriented x 3, non focal - Constitutional Vitals: Temp Pulse Resp BP Pulse Ox 100 F H 114 H 20 165/81 98 07/11/16 08:00 07/11/16 08:00 07/11/16 08:00 07/11/16 10:52 07/11/16 09:49 General appearance: Present: no acute distress, well-nourished Results - Labs CBC & Chem 7: 07/09/16 04:36 07/11/16 10:45 Labs: Laboratory Last Values WBC 6.4 K/mm3 (4.5-11.0) 07/09/16 04:36 RBC 2.52 M/mm3 (3.65-5.03) L 07/09/16 04:36 Hgb 8.3 gm/dl (10.1-14.3) L 07/09/16 04:36 Hct 24.4 % (30.3-42.9) L 07/09/16 04:36 MCV 97 fl (79-97) 07/09/16 04:36 MCH 33 pg (28-32) H 07/09/16 04:36 MCHC 34 % (30-34) 07/09/16 04:36 RDW 14.3 % (13.2-15.2) 07/09/16 04:36 Plt Count 137 K/mm3 (140-440) L 07/09/16 04:36 Lymph % (Auto) 15.6 % (13.4-35.0) 07/06/16 06:30 Patrick % (Auto) 11.3 % (0.0-7.3) H 07/06/16 06:30 Eos % (Auto) 0.2 % (0.0-4.3) 07/06/16 06:30 Baso % (Auto) 0.5 % (0.0-1.8) 07/06/16 06:30 Lymph # 0.7 K/mm3 (1.2-5.4) L 07/06/16 06:30 Patrick # 0.5 K/mm3 (0.0-0.8) 07/06/16 06:30 Eos # 0.0 K/mm3 (0.0-0.4) 07/06/16 06:30 Baso # 0.0 K/mm3 (0.0-0.1) 07/06/16 06:30 Add Manual Diff Complete 07/03/16 04:42 Total Counted 100 07/03/16 04:42 Seg Neutrophils % 72.4 % (40.0-70.0) H 07/06/16 06:30 Seg Neuts % (Manual) 94.0 % (40.0-70.0) H 07/03/16 04:42 Band Neutrophils % 0 % 07/03/16 04:42 Lymphocytes % (Manual) 4.0 % (13.4-35.0) L 07/03/16 04:42 Reactive Lymphs % (Man) 0 % 07/03/16 04:42 Monocytes % (Manual) 2.0 % (0.0-7.3) 07/03/16 04:42 Eosinophils % (Manual) 0 % (0.0-4.3) 07/03/16 04:42 Basophils % (Manual) 0 % (0.0-1.8) 07/03/16 04:42 Metamyelocytes % 0 % 07/03/16 04:42 Myelocytes % 0 % 07/03/16 04:42 Promyelocytes % 0 % 07/03/16 04:42 Blast Cells % 0 % 07/03/16 04:42 Nucleated RBC % Not Reportable 07/03/16 04:42 Seg Neutrophils # 3.3 K/mm3 (1.8-7.7) 07/06/16 06:30 Seg Neutrophils # Man 7.1 K/mm3 (1.8-7.7) 07/03/16 04:42 Band Neutrophils # 0.0 K/mm3 07/03/16 04:42 Lymphocytes # (Manual) 0.3 K/mm3 (1.2-5.4) L 07/03/16 04:42 Abs React Lymphs (Man) 0.0 K/mm3 07/03/16 04:42 Monocytes # (Manual) 0.2 K/mm3 (0.0-0.8) 07/03/16 04:42 Eosinophils # (Manual) 0.0 K/mm3 (0.0-0.4) 07/03/16 04:42 Basophils # (Manual) 0.0 K/mm3 (0.0-0.1) 07/03/16 04:42 Metamyelocytes # 0.0 K/mm3 07/03/16 04:42 Myelocytes # 0.0 K/mm3 07/03/16 04:42 Promyelocytes # 0.0 K/mm3 07/03/16 04:42 Blast Cells # 0.0 K/mm3 07/03/16 04:42 WBC Morphology Not Reportable 07/03/16 04:42 Hypersegmented Neuts Not Reportable 07/03/16 04:42 Hyposegmented Neuts Not Reportable 07/03/16 04:42 Hypogranular Neuts Not Reportable 07/03/16 04:42 Smudge Cells Not Reportable 07/03/16 04:42 Toxic Granulation Not Reportable 07/03/16 04:42 Toxic Vacuolation Not Reportable 07/03/16 04:42 Dohle Bodies Not Reportable 07/03/16 04:42 Pelger-Huet Anomaly Not Reportable 07/03/16 04:42 Paul Rods Not Reportable 07/03/16 04:42 Platelet Estimate Appears decreased 07/03/16 04:42 Clumped Platelets Not Reportable 07/03/16 04:42 Plt Clumps, EDTA Not Reportable 07/03/16 04:42 Large Platelets Not Reportable 07/03/16 04:42 Giant Platelets Not Reportable 07/03/16 04:42 Platelet Satelliting Not Reportable 07/03/16 04:42 Plt Morphology Comment Not Reportable 07/03/16 04:42 RBC Morphology Normal 07/03/16 04:42 Dimorphic RBCs Not Reportable 07/03/16 04:42 Polychromasia Not Reportable 07/03/16 04:42 Hypochromasia Not Reportable 07/03/16 04:42 Poikilocytosis Not Reportable 07/03/16 04:42 Anisocytosis Not Reportable 07/03/16 04:42 Microcytosis Not Reportable 07/03/16 04:42 Macrocytosis Not Reportable 07/03/16 04:42 Spherocytes Not Reportable 07/03/16 04:42 Pappenheimer Bodies Not Reportable 07/03/16 04:42 Sickle Cells Not Reportable 07/03/16 04:42 Target Cells Not Reportable 07/03/16 04:42 Tear Drop Cells Not Reportable 07/03/16 04:42 Ovalocytes Not Reportable 07/03/16 04:42 Helmet Cells Not Reportable 07/03/16 04:42 [place] Bodies Not Reportable 07/03/16 04:42 [place] Rings Not Reportable 07/03/16 04:42 [place] Cells Not Reportable 07/03/16 04:42 Bite Cells Not Reportable 07/03/16 04:42 Crenated Cell Not Reportable 07/03/16 04:42 Elliptocytes Not Reportable 07/03/16 04:42 Acanthocytes (Spur) Not Reportable 07/03/16 04:42 Rouleaux Not Reportable 07/03/16 04:42 Hemoglobin C Crystals Not Reportable 07/03/16 04:42 Schistocytes Not Reportable 07/03/16 04:42 Malaria parasites Not Reportable 07/03/16 04:42 Low Bodies Not Reportable 07/03/16 04:42 Hem Pathologist Commnt No 07/03/16 04:42 PT 14.1 Sec. (12.2-14.9) 07/03/16 04:42 INR 1.10 (0.87-1.13) 07/03/16 04:42 POC ABG pH 7.298 (7.35-7.45) L 07/05/16 05:23 POC ABG pCO2 27.2 (35-45) L 07/05/16 05:23 POC ABG pO2 130 (80-105) H 07/05/16 05:23 POC ABG HCO3 13.3 07/05/16 05:23 POC ABG Total CO2 14 07/05/16 05:23 POC ABG O2 Sat 99 07/05/16 05:23 POC ABG Base Excess -13 07/05/16 05:23 VBG pH 7.384 (7.320-7.420) 07/03/16 04:42 FiO2 30 % 07/05/16 05:23 Sodium 134 mmol/L (137-145) L 07/11/16 07:13 Potassium 3.6 mmol/L (3.6-5.0) 07/11/16 07:13 Chloride 92.0 mmol/L (98-107) L 07/11/16 07:13 Carbon Dioxide 27 mmol/L (22-30) 07/11/16 07:13 Anion Gap 19 mmol/L 07/11/16 07:13 BUN 7 mg/dL (7-17) 07/11/16 07:13 Creatinine 0.5 mg/dL (0.7-1.2) L 07/11/16 07:13 Estimated GFR > 60 ml/min 07/11/16 07:13 BUN/Creatinine Ratio 14.00 % 07/11/16 07:13 Glucose 89 mg/dL (65-100) 07/11/16 07:13 POC Glucose 105 (70-105) 07/11/16 06:19 Lactic Acid 0.9 mmol/L (0.7-2.0) 07/03/16 14:01 Calcium 8.5 mg/dL (8.4-10.2) 07/11/16 07:13 Phosphorus 3.1 mg/dL (2.5-4.5) 07/04/16 15:51 Magnesium 1.4 mg/dL (1.7-2.3) L 07/11/16 07:13 Total Bilirubin 1.0 mg/dL (0.1-1.2) 07/05/16 04:34 AST 149 units/L (5-40) H 07/05/16 04:34 ALT 52 units/L (7-56) 07/05/16 04:34 Alkaline Phosphatase 68 units/L (35-129) 07/05/16 04:34 Ammonia 43.0 umol/L (25-60) 07/03/16 14:01 Total Protein 5.3 g/dL (6.3-8.2) L D 07/05/16 04:34 Albumin 2.5 g/dL (3.9-5) L 07/05/16 04:34 Albumin/Globulin Ratio 0.9 % 07/05/16 04:34 TSH 1.450 mlU/mL (0.270-4.200) 07/03/16 06:16 Urine Color [place] (Yellow) 07/03/16 04:31 Urine Turbidity Clear (Clear) 07/03/16 04:31 Urine pH 5.0 (5.0-7.0) 07/03/16 04:31 Ur Specific [place] 1.024 (1.003-1.030) 07/03/16 04:31 Urine Protein >500 mg/dL (Negative) 07/03/16 04:31 Urine Glucose (UA) Neg mg/dL (Negative) 07/03/16 04:31 Urine Ketones 20 mg/dL (Negative) 07/03/16 04:31 Urine Blood Mod (Negative) 07/03/16 04:31 Urine Nitrite Neg (Negative) 07/03/16 04:31 Urine Bilirubin Neg (Negative) 07/03/16 04:31 Urine Urobilinogen < 2.0 mg/dL (<2.0) 07/03/16 04:31 Ur Leukocyte Esterase Neg (Negative) 07/03/16 04:31 Urine WBC (Auto) 3.0 /HPF (0.0-6.0) 07/03/16 04:31 Urine RBC (Auto) 4.0 /HPF (0.0-6.0) 07/03/16 04:31 U Epithel Cells (Auto) < 1.0 /HPF (0-13.0) 07/03/16 04:31 Urine Bacteria (Auto) 1+ /HPF (Negative) 07/03/16 04:31 Urine Mucus 1+ /HPF 07/03/16 04:31 Urine HCG, Qual Negative (Negative) 07/03/16 04:43 Salicylates < 0.3 mg/dL (2.8-20.0) L 07/03/16 06:16 Urine Opiates Screen Presumptive negative 07/03/16 07:00 Urine Methadone Screen Presumptive negative 07/03/16 07:00 Acetaminophen < 15.0 ug/mL (10.0-30.0) 07/03/16 06:16 Ur Barbiturates Screen Presumptive negative 07/03/16 07:00 Ur Phencyclidine Scrn Presumptive negative 07/03/16 07:00 Ur Amphetamines Screen Presumptive negative 07/03/16 07:00 U Benzodiazepines Scrn Presumptive negative 07/03/16 07:00 Urine Cocaine Screen Presumptive negative 07/03/16 07:00 U Marijuana (THC) Screen Presumptive negative 07/03/16 07:00 Drugs of Abuse Note Disclamer 07/03/16 07:00 Plasma/Serum Alcohol < 0.01 gm% (0-0.07) 07/03/16 06:16 Miscellaneous Test Flexitest 1 H 07/04/16 05:15
[2016-07-11 11:56] LABS: Anion Gap 19 mmol/L; Blood Urea Nitrogen 7 mg/dL (7-17); Calcium 8.1 mg/dL (8.4-10.2); Carbon Dioxide 27 mmol/L (22-30); Chloride 90.1 mmol/L (98-107); Glucose 102 mg/dL (65-100); Potassium 3.7 mmol/L (3.6-5.0); Sodium 132 mmol/L (137-145)
[2016-07-11] MEDS: ATIVAN IV PRN (23:18)
[2016-07-12 05:32] LABS: Anion Gap 19 mmol/L; BUN/Creatinine Ratio 8.33; Blood Urea Nitrogen 5 mg/dL (7-17); Calcium 8.9 mg/dL (8.4-10.2); Carbon Dioxide 25 mmol/L (22-30); Chloride 93.7 mmol/L (98-107); Glucose 86 mg/dL (65-100); Magnesium 1.5 mg/dL (1.7-2.3); Potassium 3.5 mmol/L (3.6-5.0); Sodium 134 mmol/L (137-145)
[2016-07-12 06:00] LABS: Hematocrit 24.9 % (30.3-42.9); Hemoglobin 8.7 gm/dl (10.1-14.3); Mean Corpuscular HGB Conc 35 % (30-34); Mean Corpuscular Hemoglobin 33 pg (28-32); Mean Corpuscular Volume 94 fl (79-97); Platelet Count 266 K/mm3 (140-440); Red Blood Count 2.64 M/mm3 (3.65-5.03); Red Cell Distribution Width 13.8 % (13.2-15.2); White Blood Count 8.9 K/mm3 (4.5-11.0)
[2016-07-12] MEDS: APRESOLINE IV PRN (06:04)
[2016-07-12] MEDS: LIBRIUM PO SCH ×2 (06:04→13:38)
[2016-07-12] MEDS: FOLVITE PO SCH (09:17)
[2016-07-12] MEDS: MAG-OX PO SCH (09:17)
[2016-07-12] MEDS: HCTZ PO SCH (09:17)
[2016-07-12] MEDS: APRESOLINE PO SCH ×2 (09:20→13:39)
[2016-07-12] MEDS: NORVASC PO SCH (09:23)
[2016-07-12] MEDS: PEPCID PO SCH (09:23)
[2016-07-12] MEDS: VITAMIN B-1 PO SCH (09:24)
[2016-07-12] MEDS: AUGMENTIN 875 MG PO SCH (09:24)
[2016-07-12] MEDS: K-DUR PO SCH ×2 (09:33→13:38)
[2016-07-12] MEDS ORDERED: LOPRESSOR PO SCH (10:00)
--- NOTE | 2016-07-12 10:22 | Discharge Summary ---
Providers - Providers Date of Admission: 07/03/16 11:25 Date of discharge: 07/12/16 Attending physician: NIVIA SAM 07/04/16 11:56 Consult to Physician [CONS] Routine Consulting Provider: CARLOS MCKINNEY Reason For Exam: Thrombocytopenia, concern for TTP Place consult to:: Carlos Mckinney Notified:: office Phone number called:: [phone] Was contact made?: Yes If yes, spoke with:: sandy Time called:: 12:04 07/04/16 11:57 Consult to Physician [CONS] Routine Consulting Provider: JAMIR REGAN Reason For Exam: Abnormal CT for age with Encephalopathy Place consult to:: Jamir Regan Notified:: guillermo Phone number called:: [phone] Was contact made?: Yes If yes, spoke with:: left message on as machine Time called:: 12:09 Primary care physician: PONY TRIMMER Hospitalization Condition: Good Disposition: DISCHARGED TO HOME OR SELFCARE - Discharge Diagnoses (1) Alcohol withdrawal seizure Status: Acute Qualifiers: Complication of substance-induced condition: C (2) Delirium tremens Status: Acute (3) Hypertension Status: Chronic Qualifiers: Hypertension type: essential hypertension Qualified Code(s): I10 - Essential (primary) hypertension Exam - Constitutional Vitals: Temp Pulse Resp BP Pulse Ox 98.5 F 100 H 18 179/97 100 07/12/16 07:59 07/12/16 09:20 07/12/16 07:59 07/12/16 09:20 07/12/16 10:00 Plan Activity: advance as tolerated Diet: low fat, low cholesterol, low salt Additional Instructions: 1.Follow up with PCP or [facility] in 1 week. 2.PCP to taper off Librium. Follow up with: PRIMARY CARE, [Primary Care Provider] - 3-5 Days Prescriptions: amLODIPine [Norvasc] 10 mg PO DAILY #30 tablet chlordiazePOXIDE [Librium] 25 mg PO Q8HR #42 capsule Famotidine [Pepcid] 20 mg PO BID #60 tablet Folic Acid [Folvite] 1 mg PO QDAY #30 tablet Hydralazine HCl [Apresoline TAB] 50 mg PO Q8HR #90 tab Magnesium Oxide [Mag-Ox] 400 mg PO BID #30 tablet Metoprolol [Lopressor TAB] 50 mg PO BID #60 tablet Thiamine [Vitamin B-1] 100 mg PO QDAY #30 tablet
[2016-07-12 11:22] LABS: Blood Urea Nitrogen 6 mg/dL (7-17); Calcium 8.9 mg/dL (8.4-10.2); Carbon Dioxide 25 mmol/L (22-30); Glucose 107 mg/dL (65-100)
[2016-07-12 11:23] LABS: Anion Gap 19 mmol/L; Chloride 91.7 mmol/L (98-107); Potassium 3.2 mmol/L (3.6-5.0); Sodium 132 mmol/L (137-145)
[2016-07-12 18:01] VITALS: BP 131/90
== END 2016-07-12 16:50 | disposition home or self-care (01) | DRG 871 ==
LOC: ED 03:50 → CC1 11:25 → 3A 07-10 21:39
PROVIDERS: ADMIT Hospitalist; ATTEND Internal Medicine
PROC: 4A033R1 Measurement of Arterial Saturation, Peripheral, Percutaneous Approach (ICD-10-PCS; principal; 2016-07-03)
DX: A41.9 Sepsis, unspecified organism (principal); J96.00 Acute respiratory failure, unspecified whether with hypoxia or hypercapnia; G93.41 Metabolic encephalopathy; I47.1 Supraventricular tachycardia; N17.9 Acute kidney failure, unspecified; F10.231 Alcohol dependence with withdrawal delirium; E87.2 Acidosis; I10 Essential (primary) hypertension; E11.9 Type 2 diabetes mellitus without complications; D69.6 Thrombocytopenia, unspecified; E83.51 Hypocalcemia; G40.901 Epilepsy, unspecified, not intractable, with status epilepticus; E83.42 Hypomagnesemia; D64.9 Anemia, unspecified
CPT/HCPCS: 31720; 36415; 36600; 70450; 70486; 70551; 71010; 72125; 74000; 80048; 80053; 80307; 80320; 81001; 81025; 82140; 82310; 82803; 82805; 82962; 83735; 84100; 84443; 85007; 85025; 85027; 85610; 87040; 87070; 87086; 87205; 90686; 90732; 93005; 93010; 94002; 94003; 94640; 94760; 96361; 96374; 96375; G0480; J0153; J0360; J0610; J1200; J1630; J1956; J2060; J2543; J2704; J3010; J3370; J3475; J7030; J7040

== ENCOUNTER 2017-10-27 06:07 | Day surgery (SDC) | payer MEDICAID ==
[2017-10-27] MEDS ORDERED: ECOTRIN PO NR (06:41)
[2017-10-27] MEDS ORDERED: NACL 0.9% 500 ML 500 ML IV SCH (07:00)
[2017-10-27] MEDS ORDERED: ASPIRIN ONE (07:16)
[2017-10-27 07:35] LABS: INR 0.91 (0.87-1.13)
[2017-10-27 07:36] LABS: Partial Thromboplastin Time 26.2 Sec. (24.2-36.6)
[2017-10-27 07:50] LABS: Basophils % (Auto) 0.5 % (0.0-1.8); Eosinophils % (Auto) 0.4 % (0.0-4.3); Hematocrit 25.3 % (30.3-42.9); Hemoglobin 8.5 gm/dl (10.1-14.3); Lymphocytes # (Auto) 1.4 K/mm3 (1.2-5.4); Lymphocytes % (Auto) 30.8 % (13.4-35.0); Mean Corpuscular HGB Conc 34 % (30-34); Mean Corpuscular Hemoglobin 35 pg (28-32); Mean Corpuscular Volume 103 fl (79-97); Monocytes # (Auto) 0.4 K/mm3 (0.0-0.8); Monocytes % (Auto) 9.3 % (0.0-7.3); Platelet Count 181 K/mm3 (140-440); Red Blood Count 2.45 M/mm3 (3.65-5.03); Red Cell Distribution Width 16.6 % (13.2-15.2)
[2017-10-27 08:11] LABS: BUN/Creatinine Ratio 13; Blood Urea Nitrogen 12 mg/dL (7-17); Calcium 6.6 mg/dL (8.4-10.2); Hemolysis Index 18
[2017-10-27] MEDS ORDERED: NITROGLYCERIN SYRINGE 3 ML ONE (08:50)
[2017-10-27] MEDS ORDERED: HEPARIN/NS 5000 UNIT/500ML(CATH LAB) 1,000 ML IR ONE (08:50)
[2017-10-27] MEDS ORDERED: CALAN ONE (08:50)
[2017-10-27] MEDS ORDERED: XYLOCAINE 2% INFILTRATI ONE (08:50)
[2017-10-27] MEDS ORDERED: HEPARIN 10,000 UNITS/10 ML ONE (08:50)
[2017-10-27] MEDS: VERSED ONE ×2 (09:58→10:02)
[2017-10-27] MEDS: SUBLIMAZE ONE ×2 (09:58→10:02)
--- NOTE | 2017-10-27 10:33 | Cardiac Catherization Report ---
CARDIAC CATHETERIZATION REASON FOR PROCEDURE: Chest pain and abnormal thallium stress test. PROCEDURE: 1. Left heart catheterization. 2. Selective left and right coronary angiography. 3. Left ventricle angiography. SEDATION TIME: Start 9:58, end 10:14. The patient was prepped and draped in a sterile fashion after informed consent. The right radial cath site was prepped and draped after a negative Johnathan's test. The right radial artery was entered using Seldinger technique followed by placement of a 6-Yi hydrophilic sheath. Routine radial cocktail was administered via the sheath. Selective left and right coronary angiography was performed, a 3.5 left Rossi was used for left coronary angiography and a #4 right Rossi was used for right coronary angiography. A pigtail catheter was used for left ventricle angiography. The catheters were removed, sheath removed, and hemostasis achieved using a TR band. The patient was returned to the postprocedure unit in stable condition. There were no complications. FINDINGS: HEMODYNAMICS: Left ventricular end-diastolic pressure was 12. Ascending aortic pressure 123/60. There was no significant pressure gradient on pullback across the aortic valve. CORONARY ANGIOGRAPHY: The left main coronary artery was angiographically normal. The left anterior descending artery and its diagonal branches were angiographically normal. The circumflex artery was a large dominant system, also angiographically normal. The right coronary artery was small caliber nondominant and also free of significant disease. There is normal left ventricular systolic function, ejection fraction 55-60%. CONCLUSION: 1. Angiographically normal coronary arteries. 2. Left circumflex dominant system. 3. Normal left ventricular systolic function, ejection fraction 60%. RECOMMENDATION: Risk factor modification and medical therapy. [facility]# [id number] CA/NTS
--- NOTE | 2017-10-27 10:46 | Discharge Summary ---
Short Stay Discharge Plan Activity: advance as tolerated Weight Bearing Status: Full Weight Bearing Diet: low fat, low cholesterol, low salt Wound: keep clean and dry Special Instructions: no heavy lifting (3 days) Follow up with: NIVIA EISENBERG MD [Primary Care Provider] - 7 Days LUBNA DC MD [Staff Physician] - 7 Days
[2017-10-27] MEDS ORDERED: TYLENOL ONE (10:51)
[2017-10-27] MEDS ORDERED: NACL 0.9% 1000 ML 1,000 ML IV SCH (11:00)
[2017-10-27] MEDS ORDERED: TYLENOL PO NR (11:07)
[2017-10-27 14:24] VITALS: BP 119/80
== END 2017-10-27 17:18 | disposition home or self-care (01) ==
LOC: CATHLABREC 06:07
PROVIDERS: ATTEND Internal Medicine Cardiovascular Disease
DX: R07.2 Precordial pain (principal); I10 Essential (primary) hypertension; Z79.899 Other long term (current) drug therapy; Z72.89 Other problems related to lifestyle; Z98.890 Other specified postprocedural states
CPT/HCPCS: 36415; 80048; 85025; 85610; 85730; 93005; 93010; 93458; 99156; 99157; C1894; J1644; J2250; J3010; Q9967